=== PATIENT | female | born 1965 | race African-American/Black ===

== ENCOUNTER 2016-12-31 10:32 | Observation (INO) | payer OTHER ==
[~2016-12-31] VITALS: Ht 162.6 cm; Wt 78.1 kg
[2016-12-31] MEDS ORDERED: IV NORMAL SALINE 1000ML BAG 1,000 ML IV SCH (11:28)
[2016-12-31] MEDS ORDERED: ONDANSETRON PF 4 MG/2 ML VIAL. IV ONE (11:30)
--- NOTE | 2016-12-31 11:38 | PHYS DOC ---
Past Medical History Past Medical History: Diabetes-Type II, High Cholesterol Additional Past Medical Histor: Neuropathy Past Surgical History: Additional Past Surgical Histo: Uterine Ablation Alcohol Use: None Drug Use: None Adult General Chief Complaint Chief Complaint: ABDOMINAL PAIN HPI HPI Patient is a 51 year old female who presents with right lower quadrant pain. She states it started this morning at 9 AM his been sharp stabbing constant in nature. She states she was at work when this occurred. She states when she had a normal bowel movement without any difficulty. She has had a history of C-sections was never had a bowel obstruction or has had pain like this before. Nothing makes the pain better or worse. She denies any fevers chills, dysuria Review of Systems Review of Systems Constitutional: Denies fever or chills [] Eyes: Denies change in visual acuity, redness, or eye pain [] HENT: Denies nasal congestion or sore throat [] Respiratory: Denies cough or shortness of breath [] Cardiovascular: No additional information not addressed in HPI [] GI: Denies nausea, vomiting, bloody stools or diarrhea, Positive for for abdominal pain, : Denies dysuria or hematuria [] Musculoskeletal: Denies back pain or joint pain [] Integument: Denies rash or skin lesions [] Neurologic: Denies headache, focal weakness or sensory changes [] Endocrine: Denies polyuria or polydipsia [] Current Medications Current Medications Current Medications Medications (Trade) Dose Ordered Sig/Theron Start Time Stop Time Status Last Admin Dose Admin Acetaminophen (Tylenol) 650 mg PRN Q6HRS PRN 12/31/16 14:45 Bisacodyl (Dulcolax Supp) 10 mg PRN DAILY PRN 12/31/16 14:45 Ibuprofen (Motrin) 400 mg PRN Q6HRS PRN 12/31/16 14:45 Info (Do NOT chart on this entry -- for MONITORING) 1 each PRN DAILY PRN 12/31/16 11:45 01/02/17 11:44 Iohexol (Omnipaque 240 Mg/ml) 50 ml 1X ONCE 12/31/16 11:45 12/31/16 11:46 DC 12/31/16 11:45 50 ML Iohexol (Omnipaque 300 Mg/ml) 75 ml 1X ONCE 12/31/16 11:45 12/31/16 11:46 DC 12/31/16 11:45 75 ML Ketorolac Tromethamine (Toradol) 15 mg PRN Q6HRS PRN 12/31/16 14:45 01/05/17 14:44 Lactulose 20 gm PRN Q12HR PRN 12/31/16 14:45 Magnesium Hydroxide (Milk Of Magnesia) 2,400 mg PRN Q12HR PRN 12/31/16 14:45 Morphine Sulfate 2 mg PRN Q2HR PRN 12/31/16 14:45 Ondansetron HCl (Zofran) 4 mg PRN Q6HRS PRN 12/31/16 14:45 Oxycodone HCl (Roxicodone) 5 mg PRN Q4HRS PRN 12/31/16 14:45 Prochlorperazine (Compazine) 25 mg PRN Q12HR PRN 12/31/16 14:45 Prochlorperazine Edisylate (Compazine) 10 mg PRN Q6HRS PRN 12/31/16 14:45 Sodium Chloride 1,000 ml @ 1,000 mls/hr Q1H 12/31/16 11:28 12/31/16 12:27 DC 12/31/16 11:55 1,000 MLS/HR Allergies Allergies Allergies Coded Allergies Type Severity Reaction Last Updated Verified No Known Drug Allergies 10/25/15 No Physical Exam Physical Exam Constitutional: Well developed, well nourished, no acute distress, non-toxic appearance. [] HENT: Normocephalic, atraumatic, bilateral external ears normal, oropharynx moist, no oral exudates, nose normal. [] Eyes: PERRLA, EOMI, conjunctiva normal, no discharge. [] Neck: Normal range of motion, no tenderness, supple, no stridor. [] Cardiovascular:Heart rate regular rhythm, no murmur [] Lungs & Thorax: Bilateral breath sounds clear to auscultation [] Abdomen: Bowel sounds normal, soft, tender to palpation in the right lower quadrant without any rebound or guarding, no masses, no pulsatile masses. [] Skin: Warm, dry, no erythema, no rash. [] Back: No tenderness, no CVA tenderness. [] Extremities: No tenderness, no cyanosis, no clubbing, ROM intact, no edema. [] Neurologic: Alert and oriented X 3, normal motor function, normal sensory function, no focal deficits noted. [] Psychologic: Affect normal, judgement normal, mood normal. [] Current Patient Data Vital Signs Vital Signs Date Time Temp Pulse Resp B/P (MAP) Pulse Ox O2 Delivery O2 Flow Rate FiO2 12/31/16 14:51 75 145/73 (97) 12/31/16 12:30 98 Room Air 12/31/16 11:58 20 12/31/16 11:00 98.0 98.0 Lab Values Laboratory Tests Test 12/31/16 10:15 12/31/16 11:01 12/31/16 12:25 POC Urine HCG, Qualitative Hcg negative (Negative) Urine Collection Type Unknown Urine Color Yellow Urine Clarity Clear Urine pH 6.0 Urine Specific [place] 1.010 Urine Protein Negative mg/dL (NEG-TRACE) Urine Glucose (UA) Negative mg/dL (NEG) Urine Ketones (Stick) Negative mg/dL (NEG) Urine Blood Negative (NEG) Urine Nitrite Negative (NEG) Urine Bilirubin Negative (NEG) Urine Urobilinogen Dipstick 0.2 mg/dL (0.2 mg/dL) Urine Leukocyte Esterase Negative (NEG) Urine RBC 0 /HPF (0-2) Urine WBC 0 /HPF (0-4) Urine Squamous Epithelial Cells Few /LPF Urine Bacteria 0 /HPF (0-FEW) Urine Opiates Screen Neg (NEG) Urine Methadone Screen Neg (NEG) Urine Barbiturates Neg (NEG) Urine Phencyclidine Screen Neg (NEG) Urine Amphetamine/Methamphetamine Neg (NEG) Urine Benzodiazepines Screen Neg (NEG) Urine Cocaine Screen Neg (NEG) Urine Cannabinoids Screen Neg (NEG) Urine Ethyl Alcohol Neg (NEG) White Blood Count 13.0 x10^3/uL (4.0-11.0) H Red Blood Count 4.04 x10^6/uL (3.50-5.40) Hemoglobin 12.0 g/dL (12.0-15.5) Hematocrit 35.6 % (36.0-47.0) L Mean Corpuscular Volume 88 fL (79-100) Mean Corpuscular Hemoglobin 30 pg (25-35) Mean Corpuscular Hemoglobin Concent 34 g/dL (31-37) Red Cell Distribution Width 13.5 % (11.5-14.5) Platelet Count 260 x10^3/uL (140-400) Neutrophils (%) (Auto) 66 % (31-73) Lymphocytes (%) (Auto) 23 % (24-48) L Monocytes (%) (Auto) 4 % (0-9) Eosinophils (%) (Auto) 5 % (0-3) H Basophils (%) (Auto) 2 % (0-3) Neutrophils # (Auto) 8.6 x10^3uL (1.8-7.7) H Lymphocytes # (Auto) 3.0 x10^3/uL (1.0-4.8) Monocytes # (Auto) 0.6 x10^3/uL (0.0-1.1) Eosinophils # (Auto) 0.6 x10^3/uL (0.0-0.7) Basophils # (Auto) 0.2 x10^3/uL (0.0-0.2) Prothrombin Time 12.4 SEC (11.7-14.0) Prothrombin Time INR 1.0 (0.8-1.1) PTT 28 SEC (24-38) Sodium Level 145 mmol/L (136-145) Potassium Level 4.4 mmol/L (3.5-5.1) Chloride Level 108 mmol/L (98-107) H Carbon Dioxide Level 27 mmol/L (21-32) Anion Gap 10 (6-14) Blood Urea Nitrogen 12 mg/dL (7-20) Creatinine 0.6 mg/dL (0.6-1.0) Estimated GFR (Cockcroft-Gault) 128.0 Glucose Level 106 mg/dL (70-99) H Calcium Level 9.2 mg/dL (8.5-10.1) Total Bilirubin 0.2 mg/dL (0.2-1.0) Direct Bilirubin 0.1 mg/dL (0.0-0.2) Aspartate Amino Transferase (AST) 12 U/L (15-37) L Alanine Aminotransferase (ALT) 9 U/L (14-59) L Alkaline Phosphatase 104 U/L (46-116) Creatine Kinase 102 U/L (26-192) Creatine Kinase MB (Mass) 1.6 ng/mL (0.0-3.6) Creatine Kinase MB Relative Index 1.6 % (0-4) Troponin I Quantitative < 0.017 ng/mL (0.000-0.055) Total Protein 6.6 g/dL (6.4-8.2) Albumin 3.5 g/dL (3.4-5.0) Lipase 331 U/L (73-393) Laboratory Tests 12/31/16 12:25 Laboratory Tests 12/31/16 12:25 EKG EKG EKG shows normal sinus rhythm rate of [address] elevations or T- wave inversions, normal axis, QTC 456 ms, as interpreted by me. Radiology/Procedures Radiology/Procedures PATIENT: KAYLI BOLTON ACCOUNT: [id number] : 1965 LOCATION: ER AGE: 51 SEX: F EXAM STATUS: REG ER ORD. PHYSICIAN: JEANNE WILLIS MD REASON: abd pain PROCEDURE: CT ABD PELV W/ORAL&IV CONTRAST CT of the abdomen and pelvis with contrast, 12/31/2016: History: Abdominal pain and nausea Multidetector CT imaging was performed following oral and IV administration of contrast. The liver is unremarkable. No gallbladder abnormality is seen. The pancreas shows no abnormality. The spleen is of normal size. No renal or adrenal abnormality is detected. There is mild aortoiliac calcific plaquing. No abdominal or pelvic adenopathy is seen. The uterus is unremarkable. The bowel loops are not dilated. The appendix is visualized and shows no abnormality. No free fluid or free air is evident in the abdomen or pelvis. IMPRESSION: No acute abdominal or pelvic abnormality is detected. PQRS Compliance Statement: One or more of the following individualized dose reduction techniques were utilized for this examination: 1. Automated exposure control 2. Adjustment of the mA and/or kV according to patient size 3. Use of iterative reconstruction technique DICTATED and SIGNED BY: MARISA VILLA MD DATE: 12/31/16 1320 CC: ANDREA MARTINEZ MD; JEANNE WILLIS MD ~ Impressions: Abdominal pain Course & Med Decision Making Course & Med Decision Making Pertinent Labs and Imaging studies reviewed. (See chart for details) CT scans and labs are nonacute. Patient as a pelvic ultrasound pending at this time. Patient be admitted to the hospitalist and interim orders have been written. Patient's agreeable to the plan and is in stable condition at this time. Dragon Disclaimer Dragon Disclaimer This electronic medical record was generated, in whole or in part, using a voice recognition dictation system. Departure Departure Impression: Primary Impression: Abdominal pain Disposition: ADMITTED INPATIENT Admitting Physician: Angela Suarez Condition: STABLE Referrals: DEVON PEREZ DELIVERY TECHNICIAN (PCP) Problem Qualifiers Primary Impression: Abdominal pain Abdominal location: right lower quadrant Qualified Codes: R10.31 - Right lower quadrant pain JEANNE WILLIS MD December 31, 2016 11:38
[2016-12-31 11:41] LABS: BILIRUBIN,URINE NEGATIVE (NEG); GLUCOSE,URINE NEGATIVE (NEG); NITRITE,URINE NEGATIVE (NEG); PROTEIN,URINE NEGATIVE (NEG-TRACE); UROBILINOGEN,URINE 0.2 mg/dL (0.2 mg/dL)
[2016-12-31] MEDS ORDERED: IOHEXOL 240 MG/ML 50ML VIAL. PO ONE (11:45)
[2016-12-31] MEDS ORDERED: CONTRAST GIVEN MC PRN (11:45)
[2016-12-31] MEDS ORDERED: IOHEXOL 300 MG/ML 75 ML VIAL IV ONE (11:45)
[2016-12-31 11:48] LABS: BARBITURATES NEG (NEG); BENZODIAZEPINES NEG (NEG); CANNABINOIDS NEG (NEG); COCAINE NEG (NEG); METHADONE NEG (NEG); OPIATES NEG (NEG); PHENCYCLIDINE NEG (NEG)
[2016-12-31 11:55] LABS: BACTERIA,URINE 0 /HPF (0-FEW); RBC,URINE 0 /HPF (0-2); SQUAMOUS EPITHELIAL CELL,UR FEW /LPF; WBC,URINE 0 /HPF (0-4)
[2016-12-31] MEDS: MORPHINE SULFATE 4 MG/ML DISP.SYRIN. IV/SQ PRN ×2 (11:58→14:58)
[2016-12-31 12:36] LABS: BASO # 0.2 x10^3/uL (0.0-0.2); BASO % 2 % (0-3); EOS % 5 % (0-3); HEMATOCRIT 35.6 % (36.0-47.0); LYMPH % 23 % (24-48); MEAN CORPUSCULAR HEMOGLOBIN 30 pg (25-35); MEAN CORPUSCULAR HGB CONC 34 g/dL (31-37); MEAN CORPUSCULAR VOLUME 88 fL (79-100); MONO % 4 % (0-9); NEUT % 66 % (31-73); PLATELET COUNT 260 x10^3/uL (140-400); RED BLOOD COUNT 4.04 x10^6/uL (3.50-5.40); RED CELL DISTRIBUTION WIDTH 13.5 % (11.5-14.5)
[2016-12-31 12:46] LABS: CALCIUM 9.2 mg/dL (8.5-10.1); CREATININE 0.6 mg/dL (0.6-1.0); POTASSIUM 4.4 mmol/L (3.5-5.1)
[2016-12-31 12:49] LABS: PROTHROMBIN TIME PATIENT 12.4 SEC (11.7-14.0)
[2016-12-31 12:52] LABS: ALBUMIN 3.5 g/dL (3.4-5.0); DIRECT BILIRUBIN 0.1 mg/dL (0.0-0.2); TOTAL BILIRUBIN 0.2 mg/dL (0.2-1.0); TOTAL PROTEIN 6.6 g/dL (6.4-8.2)
[2016-12-31 13:00] LABS: CKMB MASS 1.6 ng/mL (0.0-3.6)
--- NOTE | 2016-12-31 13:27 | RAD ---
CT of the abdomen and pelvis with contrast, 12/31/2016: History: Abdominal pain and nausea Multidetector CT imaging was performed following oral and IV administration of contrast. The liver is unremarkable. No gallbladder abnormality is seen. The pancreas shows no abnormality. The spleen is of normal size. No renal or adrenal abnormality is detected. There is mild aortoiliac calcific plaquing. No abdominal or pelvic adenopathy is seen. The uterus is unremarkable. The bowel loops are not dilated. The appendix is visualized and shows no abnormality. No free fluid or free air is evident in the abdomen or pelvis. IMPRESSION: No acute abdominal or pelvic abnormality is detected. PQRS Compliance Statement: One or more of the following individualized dose reduction techniques were utilized for this examination: 1. Automated exposure control 2. Adjustment of the mA and/or kV according to patient size 3. Use of iterative reconstruction technique
--- NOTE | 2016-12-31 13:28 | EKG ---
[facility] [address] [place] [address] Test Date: 2016-12-31 Test Time: 11:51:31 Pat Name: KAYLI BOLTON Department: Room: Gender: F [employer]: : 1965 Requested By: JEANNE WILLIS Order Number: [id number] Reading MD: Usman Trinh Measurements Intervals [place] Rate: 83 P: 40 CT: 194 QRS: 39 QRSD: 80 T: 27 QT: 388 QTc: 456 Interpretive Statements SINUS RHYTHM Electronically Signed On 01-06-2017 13:30:42 CDT by Usman Trinh
--- NOTE | 2016-12-31 14:40 | RAD ---
Examination: Ultrasound pelvis History history of abdominal pain. Comparison: None available Findings: The uterus measures 7.1 x 3.0 cm The right ovary measures 2.5 x1.1 x 2.5 cm The left ovary is not identified. Examination limited due to patient body habitus Impression: Unremarkable visualized exam.
[2016-12-31] MEDS ORDERED: PROCHLORPERAZINE 10 MG/2 ML VIAL. IV PRN (14:45)
[2016-12-31] MEDS ORDERED: ONDANSETRON PF 4 MG/2 ML VIAL. IV PRN ×2 (14:45→15:45)
[2016-12-31] MEDS ORDERED: LACTULOSE 20 GM/30 ML SOLUTION. PO PRN (14:45)
[2016-12-31] MEDS ORDERED: PROCHLORPERAZINE 25 MG SUPP.RECT. PR PRN (14:45)
[2016-12-31] MEDS ORDERED: BISACODYL 10 MG SUPP.RECT. PR PRN (14:45)
[2016-12-31] MEDS ORDERED: MAGNESIUM HYDROXIDE 2,400 MG/30 ML ORAL.SUSP. PO PRN (14:45)
[2016-12-31] MEDS ORDERED: IBUPROFEN 400 MG TABLET. PO PRN (14:45)
--- NOTE | 2016-12-31 16:11 | PDOC1 ---
History and Physical Date of Admission Date of Admission DATE: 12/31/16 TIME: 16:07 Identification/Chief Complaint Chief Complaint abd pain Problems: Source Source: Caregiver, Chart review, Patient History of Present Illness History of Present Illness 51 y./o female coming in for abd pain with neg work up, in tears, MOrphine or dilaudid helped her pain in ER, No other prev admits here, LAbs ok,. Admitted for pain control. Rest of details of her abd pain hard to get, crying, not focused on my H and P. Past Medical History Cardiovascular: No pertinent hx Pulmonary: No pertinent hx GI: No pertinent hx Heme/Onc: No pertinent hx Hepatobiliary: No pertinent hx Psych: No pertinent hx Rheumatologic: No pertinent hx ENT: No pertinent hx Renal/: No pertinent hx Endocrine: No pertinent hx Dermatology: No pertinent hx Past Surgical History Past Surgical History: No pertinent history Family History Family History: No Significant Social History Smoke: No ALCOHOL: none Drugs: None Current Medications Current Medications Current Medications Morphine Sulfate 4 mg PRN Q15MIN PRN IV/SQ PAIN GREATER THAN 3/10 Last administered on 12/31/16 14:58; Start 12/31/16 at 11:30; Stop 01/01/17 at 11:29 Sodium Chloride 1,000 ml @ 1,000 mls/hr Q1H IV Last administered on 12/31/16 11:55; Start 12/31/16 at 11:28; Stop 12/31/16 at 12:27; Status DC Ondansetron HCl (Zofran) 4 mg 1X ONCE IV Last administered on 12/31/16 11:56 ; Start 12/31/16 at 11:30; Stop 12/31/16 at 11:31; Status DC Iohexol (Omnipaque 300 Mg/ml) 75 ml 1X ONCE IV Last administered on 12/31/16 11:45; Start 12/31/16 at 11:45; Stop 12/31/16 at 11:46; Status DC Iohexol (Omnipaque 240 Mg/ml) 50 ml 1X ONCE PO Last administered on 12/31/16 11:45; Start 12/31/16 at 11:45; Stop 12/31/16 at 11:46; Status DC Info (Do NOT chart on this entry -- for MONITORING) 1 each PRN DAILY PRN MC SEE COMMENTS; Start 12/31/16 at 11:45; Stop 01/02/17 at 11:44 Ondansetron HCl (Zofran) 4 mg PRN Q6HRS PRN IV NAUSEA/VOMITING; Start 12/31/16 at 14:45 Prochlorperazine Edisylate (Compazine) 10 mg PRN Q6HRS PRN IV NAUSEA/VOMITING; Start 12/31/16 at 14:45 Prochlorperazine (Compazine) 25 mg PRN Q12HR PRN [place] NAUSEA/VOMITING; Start at 14:45 Morphine Sulfate 2 mg PRN Q2HR PRN IV PAIN; Start 12/31/16 at 14:45 Oxycodone HCl (Roxicodone) 5 mg PRN Q4HRS PRN PO MILD PAIN, 1ST CHOICE; Start 12/31/16 at 14:45 Ketorolac Tromethamine (Toradol) 15 mg PRN Q6HRS PRN IV PAIN; Start 12/31/16 at 14:45; Stop 01/05/17 at 14:44 Acetaminophen (Tylenol) 650 mg PRN Q6HRS PRN PO Headaches, Temp > 101.5F; Start 12/31/16 at 14:45 Ibuprofen (Motrin) 400 mg PRN Q6HRS PRN PO MILD PAIN; Start 12/31/16 at 14:45 Docusate Sodium (Colace) 100 mg BID PO ; Start 12/31/16 at 21:00 Magnesium Hydroxide (Milk Of Magnesia) 2,400 mg PRN Q12HR PRN PO CONSTIPATION; Start 12/31/16 at 14:45 Lactulose 20 gm PRN Q12HR PRN PO CONSTIPATION; Start 12/31/16 at 14:45 Bisacodyl (Dulcolax Supp) 10 mg PRN DAILY PRN [place] CONSTIPATION; Start 12/31/16 at 14:45 Ondansetron HCl (Zofran) 4 mg PRN Q8HRS PRN IV NAUSEA/VOMITING; Start 12/31/16 at 15:45; Stop 12/31/16 at 15:48; Status DC Morphine Sulfate 4 mg PRN Q2HR PRN IV PAIN; Start 12/31/16 at 15:45; Stop 01/01 at 15:44 Allergies Allergies: Coded Allergies: No Known Drug Allergies (Unverified , 10/25/15) ROS Review of System cant obtain - crying Physical Exam General: No acute distress HEENT: Atraumatic, PERRLA Lungs: Clear to auscultation, Normal air movement Heart: S1S2, RRR, no thrills, no gallops, no murmurs Cardiovascular: S1, S2 Breasts: Normal Abdomen: Normal bowel sounds, Soft, No tenderness, No hepatosplenomegaly, Other (tende rto mild palp, no guarding) Rectal Exam: not examined PELVIC: Nml ext genitalia Extremities: No clubbing, No cyanosis, No edema, Normal pulses, No tenderness/ swelling Skin: No rashes, No breakdown, No significant lesion Neuro: Other (WNL, essentially looks normal;) Vitals Vitals Vital Signs Date Time Temp Pulse Resp B/P (MAP) Pulse Ox O2 Delivery O2 Flow Rate FiO2 12/31/16 15:23 94 17 137/93 (108) 97 Room Air 12/31/16 11:00 98.0 98.0 Labs Labs Laboratory Tests Test 12/31/16 10:15 12/31/16 11:01 12/31/16 12:25 Bedside Urine HCG, Qualitative Hcg negative (Negative) Urine Collection Type Unknown Urine Color Yellow Urine Clarity Clear Urine pH 6.0 Urine Specific [place] 1.010 Urine Protein Negative mg/dL (NEG-TRACE) Urine Glucose (UA) Negative mg/dL (NEG) Urine Ketones (Stick) Negative mg/dL (NEG) Urine Blood Negative (NEG) Urine Nitrite Negative (NEG) Urine Bilirubin Negative (NEG) Urine Urobilinogen Dipstick 0.2 mg/dL (0.2 mg/dL) Urine Leukocyte Esterase Negative (NEG) Urine RBC 0 /HPF (0-2) Urine WBC 0 /HPF (0-4) Urine Squamous Epithelial Cells Few /LPF Urine Bacteria 0 /HPF (0-FEW) Urine Opiates Screen Neg (NEG) Urine Methadone Screen Neg (NEG) Urine Barbiturates Neg (NEG) Urine Phencyclidine Screen Neg (NEG) Urine Amphetamine/Methamphetamine Neg (NEG) Urine Benzodiazepines Screen Neg (NEG) Urine Cocaine Screen Neg (NEG) Urine Cannabinoids Screen Neg (NEG) Urine Ethyl Alcohol Neg (NEG) White Blood Count 13.0 x10^3/uL (4.0-11.0) Red Blood Count 4.04 x10^6/uL (3.50-5.40) Hemoglobin 12.0 g/dL (12.0-15.5) Hematocrit 35.6 % (36.0-47.0) Mean Corpuscular Volume 88 fL (79-100) Mean Corpuscular Hemoglobin 30 pg (25-35) Mean Corpuscular Hemoglobin Concent 34 g/dL (31-37) Red Cell Distribution Width 13.5 % (11.5-14.5) Platelet Count 260 x10^3/uL (140-400) Neutrophils (%) (Auto) 66 % (31-73) Lymphocytes (%) (Auto) 23 % (24-48) Monocytes (%) (Auto) 4 % (0-9) Eosinophils (%) (Auto) 5 % (0-3) Basophils (%) (Auto) 2 % (0-3) Neutrophils # (Auto) 8.6 x10^3uL (1.8-7.7) Lymphocytes # (Auto) 3.0 x10^3/uL (1.0-4.8) Monocytes # (Auto) 0.6 x10^3/uL (0.0-1.1) Eosinophils # (Auto) 0.6 x10^3/uL (0.0-0.7) Basophils # (Auto) 0.2 x10^3/uL (0.0-0.2) Prothrombin Time 12.4 SEC (11.7-14.0) Prothromb Time International Ratio 1.0 (0.8-1.1) Activated Partial Thromboplast Time 28 SEC (24-38) Sodium Level 145 mmol/L (136-145) Potassium Level 4.4 mmol/L (3.5-5.1) Chloride Level 108 mmol/L (98-107) Carbon Dioxide Level 27 mmol/L (21-32) Anion Gap 10 (6-14) Blood Urea Nitrogen 12 mg/dL (7-20) Creatinine 0.6 mg/dL (0.6-1.0) Estimated GFR (Cockcroft-Gault) 128.0 Glucose Level 106 mg/dL (70-99) Calcium Level 9.2 mg/dL (8.5-10.1) Total Bilirubin 0.2 mg/dL (0.2-1.0) Direct Bilirubin 0.1 mg/dL (0.0-0.2) Aspartate Amino Transf (AST/SGOT) 12 U/L (15-37) Alanine Aminotransferase (ALT/SGPT) 9 U/L (14-59) Alkaline Phosphatase 104 U/L (46-116) Creatine Kinase 102 U/L (26-192) Creatine Kinase MB (Mass) 1.6 ng/mL (0.0-3.6) Creatine Kinase MB Relative Index 1.6 % (0-4) Troponin I Quantitative < 0.017 ng/mL (0.000-0.055) Total Protein 6.6 g/dL (6.4-8.2) Albumin 3.5 g/dL (3.4-5.0) Lipase 331 U/L (73-393) Laboratory Tests Test 12/31/16 10:15 12/31/16 11:01 12/31/16 12:25 Bedside Urine HCG, Qualitative Hcg negative (Negative) Urine Collection Type Unknown Urine Color Yellow Urine Clarity Clear Urine pH 6.0 Urine Specific [place] 1.010 Urine Protein Negative mg/dL (NEG-TRACE) Urine Glucose (UA) Negative mg/dL (NEG) Urine Ketones (Stick) Negative mg/dL (NEG) Urine Blood Negative (NEG) Urine Nitrite Negative (NEG) Urine Bilirubin Negative (NEG) Urine Urobilinogen Dipstick 0.2 mg/dL (0.2 mg/dL) Urine Leukocyte Esterase Negative (NEG) Urine RBC 0 /HPF (0-2) Urine WBC 0 /HPF (0-4) Urine Squamous Epithelial Cells Few /LPF Urine Bacteria 0 /HPF (0-FEW) Urine Opiates Screen Neg (NEG) Urine Methadone Screen Neg (NEG) Urine Barbiturates Neg (NEG) Urine Phencyclidine Screen Neg (NEG) Urine Amphetamine/Methamphetamine Neg (NEG) Urine Benzodiazepines Screen Neg (NEG) Urine Cocaine Screen Neg (NEG) Urine Cannabinoids Screen Neg (NEG) Urine Ethyl Alcohol Neg (NEG) White Blood Count 13.0 x10^3/uL (4.0-11.0) Red Blood Count 4.04 x10^6/uL (3.50-5.40) Hemoglobin 12.0 g/dL (12.0-15.5) Hematocrit 35.6 % (36.0-47.0) Mean Corpuscular Volume 88 fL (79-100) Mean Corpuscular Hemoglobin 30 pg (25-35) Mean Corpuscular Hemoglobin Concent 34 g/dL (31-37) Red Cell Distribution Width 13.5 % (11.5-14.5) Platelet Count 260 x10^3/uL (140-400) Neutrophils (%) (Auto) 66 % (31-73) Lymphocytes (%) (Auto) 23 % (24-48) Monocytes (%) (Auto) 4 % (0-9) Eosinophils (%) (Auto) 5 % (0-3) Basophils (%) (Auto) 2 % (0-3) Neutrophils # (Auto) 8.6 x10^3uL (1.8-7.7) Lymphocytes # (Auto) 3.0 x10^3/uL (1.0-4.8) Monocytes # (Auto) 0.6 x10^3/uL (0.0-1.1) Eosinophils # (Auto) 0.6 x10^3/uL (0.0-0.7) Basophils # (Auto) 0.2 x10^3/uL (0.0-0.2) Prothrombin Time 12.4 SEC (11.7-14.0) Prothromb Time International Ratio 1.0 (0.8-1.1) Activated Partial Thromboplast Time 28 SEC (24-38) Sodium Level 145 mmol/L (136-145) Potassium Level 4.4 mmol/L (3.5-5.1) Chloride Level 108 mmol/L (98-107) Carbon Dioxide Level 27 mmol/L (21-32) Anion Gap 10 (6-14) Blood Urea Nitrogen 12 mg/dL (7-20) Creatinine 0.6 mg/dL (0.6-1.0) Estimated GFR (Cockcroft-Gault) 128.0 Glucose Level 106 mg/dL (70-99) Calcium Level 9.2 mg/dL (8.5-10.1) Total Bilirubin 0.2 mg/dL (0.2-1.0) Direct Bilirubin 0.1 mg/dL (0.0-0.2) Aspartate Amino Transf (AST/SGOT) 12 U/L (15-37) Alanine Aminotransferase (ALT/SGPT) 9 U/L (14-59) Alkaline Phosphatase 104 U/L (46-116) Creatine Kinase 102 U/L (26-192) Creatine Kinase MB (Mass) 1.6 ng/mL (0.0-3.6) Creatine Kinase MB Relative Index 1.6 % (0-4) Troponin I Quantitative < 0.017 ng/mL (0.000-0.055) Total Protein 6.6 g/dL (6.4-8.2) Albumin 3.5 g/dL (3.4-5.0) Lipase 331 U/L (73-393) VTE Prophylaxis Ordered VTE Prophylaxis Devices: Yes VTE Pharmacological Prophylaxi: Yes Assessment/Plan Assessment/Plan 1.A bdominal pain, neg work up, unclear etiology, narc seeking? 2. Overweight 3. Leukocytosis, no source, reactive PLAn: OBS admit PAin med Recheck CBC pee Awaitv home meds Liquid diet MARQUES HAJI MD December 31, 2016 16:11
[2016-12-31 16:40] VITALS: BP 137/74
[2016-12-31] MEDS: MORPHINE SULFATE 4 MG/ML DISP.SYRIN. IV PRN ×2 (17:10→19:49)
[2016-12-31] MEDS ORDERED: ESOM40CA PO (18:04)
[2016-12-31] MEDS ORDERED: ATOR20TA58 PO (18:04)
[2016-12-31] MEDS ORDERED: PROAIR HFA8.5 GM INH (18:04)
[2016-12-31] MEDS ORDERED: METF-620 PO (18:04)
[2016-12-31] MEDS ORDERED: SITA100T PO (18:04)
[2016-12-31] MEDS ORDERED: GABA-586 PO (18:04)
[2016-12-31] MEDS ORDERED: GLIP2.5T4 PO (18:04)
[2016-12-31] MEDS ORDERED: CYAN100031 PO (18:04)
[2016-12-31 19:00] VITALS: BP 113/74
[2016-12-31] MEDS: DOCUSATE SODIUM 100 MG CAPSULE. PO SCH (19:48)
[2016-12-31 23:00] VITALS: BP 108/61
[2016-12-31] MEDS: oxyCODONE IR 5 MG TABLET PO PRN (23:26)
[2017-01-01] MEDS: MORPHINE SULFATE 4 MG/ML DISP.SYRIN. IV PRN ×6 (00:38→12:48)
[2017-01-01 03:00] VITALS: BP 102/69
[2017-01-01 06:13] LABS: BASO # 0.1 x10^3/uL (0.0-0.2); BASO % 1 % (0-3); EOS % 6 % (0-3); HEMATOCRIT 33.2 % (36.0-47.0); HEMOGLOBIN 11.1 g/dL (12.0-15.5); LYMPH % 32 % (24-48); MEAN CORPUSCULAR HEMOGLOBIN 30 pg (25-35); MEAN CORPUSCULAR HGB CONC 34 g/dL (31-37); MEAN CORPUSCULAR VOLUME 89 fL (79-100); MONO % 5 % (0-9); NEUT % 55 % (31-73); PLATELET COUNT 217 x10^3/uL (140-400); RED BLOOD COUNT 3.75 x10^6/uL (3.50-5.40); RED CELL DISTRIBUTION WIDTH 13.7 % (11.5-14.5); WHITE BLOOD COUNT 9.2 x10^3/uL (4.0-11.0)
[2017-01-01 06:25] LABS: CALCIUM 8.6 mg/dL (8.5-10.1); CREATININE 0.7 mg/dL (0.6-1.0); GFR 107.2; POTASSIUM 3.8 mmol/L (3.5-5.1)
[2017-01-01 07:00] VITALS: BP 121/70
[2017-01-01] MEDS: DOCUSATE SODIUM 100 MG CAPSULE. PO SCH ×2 (08:31→21:10)
[2017-01-01 11:00] VITALS: BP 101/66
--- NOTE | 2017-01-01 12:35 | PDOC ---
PROGRESS NOTES Chief Complaint Chief Complaint cc: abdominal pain A/P 1.Abdominal pain, neg work up, unclear etiology, 2. Overweight 3. Leukocytosis, no source, reactive PLAN: Pain not controlled liquid diet GI consult Protonix continue current care monitor hemoglobin Vitals Vitals Vital Signs Date Time Temp Pulse Resp B/P (MAP) Pulse Ox O2 Delivery O2 Flow Rate FiO2 01/01/17 11:00 98.1 73 19 101/66 (78) 95 Room Air 98.1 Physical Exam General: Alert, Oriented X3, No acute distress Heart: Normal S1, Normal S2 Abdomen: Normal bowel sounds, Soft, No tenderness, No hepatosplenomegaly, Other (tende rto mild palp, no guarding) Extremities: No clubbing, No cyanosis, No edema, Normal pulses, No tenderness/ swelling Skin: No rashes, No breakdown, No significant lesion Labs LABS Laboratory Tests Test 12/31/16 17:07 12/31/16 19:56 01/01/17 05:05 01/01/17 07:45 Glucose (Fingerstick) 103 mg/dL (70-99) 164 mg/dL (70-99) 121 mg/dL (70-99) White Blood Count 9.2 x10^3/uL (4.0-11.0) Red Blood Count 3.75 x10^6/uL (3.50-5.40) Hemoglobin 11.1 g/dL (12.0-15.5) Hematocrit 33.2 % (36.0-47.0) Mean Corpuscular Volume 89 fL (79-100) Mean Corpuscular Hemoglobin 30 pg (25-35) Mean Corpuscular Hemoglobin Concent 34 g/dL (31-37) Red Cell Distribution Width 13.7 % (11.5-14.5) Platelet Count 217 x10^3/uL (140-400) Neutrophils (%) (Auto) 55 % (31-73) Lymphocytes (%) (Auto) 32 % (24-48) Monocytes (%) (Auto) 5 % (0-9) Eosinophils (%) (Auto) 6 % (0-3) Basophils (%) (Auto) 1 % (0-3) Neutrophils # (Auto) 5.0 x10^3uL (1.8-7.7) Lymphocytes # (Auto) 3.0 x10^3/uL (1.0-4.8) Monocytes # (Auto) 0.5 x10^3/uL (0.0-1.1) Eosinophils # (Auto) 0.6 x10^3/uL (0.0-0.7) Basophils # (Auto) 0.1 x10^3/uL (0.0-0.2) Sodium Level 141 mmol/L (136-145) Potassium Level 3.8 mmol/L (3.5-5.1) Chloride Level 107 mmol/L (98-107) Carbon Dioxide Level 25 mmol/L (21-32) Anion Gap 9 (6-14) Blood Urea Nitrogen 10 mg/dL (7-20) Creatinine 0.7 mg/dL (0.6-1.0) Estimated GFR (Cockcroft-Gault) 107.2 Glucose Level 125 mg/dL (70-99) Calcium Level 8.6 mg/dL (8.5-10.1) Test 01/01/17 10:31 Glucose (Fingerstick) 152 mg/dL (70-99) Comment Review of Relevant I have reviewed the following items marlo (where applicable) has been applied. Labs Laboratory Tests Test 12/31/16 10:15 12/31/16 11:01 12/31/16 12:25 12/31/16 17:07 Bedside Urine HCG, Qualitative Hcg negative (Negative) Urine Collection Type Unknown Urine Color Yellow Urine Clarity Clear Urine pH 6.0 Urine Specific Addison 1.010 Urine Protein Negative mg/dL (NEG-TRACE) Urine Glucose (UA) Negative mg/dL (NEG) Urine Ketones (Stick) Negative mg/dL (NEG) Urine Blood Negative (NEG) Urine Nitrite Negative (NEG) Urine Bilirubin Negative (NEG) Urine Urobilinogen Dipstick 0.2 mg/dL (0.2 mg/dL) Urine Leukocyte Esterase Negative (NEG) Urine RBC 0 /HPF (0-2) Urine WBC 0 /HPF (0-4) Urine Squamous Epithelial Cells Few /LPF Urine Bacteria 0 /HPF (0-FEW) Urine Opiates Screen Neg (NEG) Urine Methadone Screen Neg (NEG) Urine Barbiturates Neg (NEG) Urine Phencyclidine Screen Neg (NEG) Urine Amphetamine/Methamphetamine Neg (NEG) Urine Benzodiazepines Screen Neg (NEG) Urine Cocaine Screen Neg (NEG) Urine Cannabinoids Screen Neg (NEG) Urine Ethyl Alcohol Neg (NEG) White Blood Count 13.0 x10^3/uL (4.0-11.0) Red Blood Count 4.04 x10^6/uL (3.50-5.40) Hemoglobin 12.0 g/dL (12.0-15.5) Hematocrit 35.6 % (36.0-47.0) Mean Corpuscular Volume 88 fL (79-100) Mean Corpuscular Hemoglobin 30 pg (25-35) Mean Corpuscular Hemoglobin Concent 34 g/dL (31-37) Red Cell Distribution Width 13.5 % (11.5-14.5) Platelet Count 260 x10^3/uL (140-400) Neutrophils (%) (Auto) 66 % (31-73) Lymphocytes (%) (Auto) 23 % (24-48) Monocytes (%) (Auto) 4 % (0-9) Eosinophils (%) (Auto) 5 % (0-3) Basophils (%) (Auto) 2 % (0-3) Neutrophils # (Auto) 8.6 x10^3uL (1.8-7.7) Lymphocytes # (Auto) 3.0 x10^3/uL (1.0-4.8) Monocytes # (Auto) 0.6 x10^3/uL (0.0-1.1) Eosinophils # (Auto) 0.6 x10^3/uL (0.0-0.7) Basophils # (Auto) 0.2 x10^3/uL (0.0-0.2) Prothrombin Time 12.4 SEC (11.7-14.0) Prothromb Time International Ratio 1.0 (0.8-1.1) Activated Partial Thromboplast Time 28 SEC (24-38) Sodium Level 145 mmol/L (136-145) Potassium Level 4.4 mmol/L (3.5-5.1) Chloride Level 108 mmol/L (98-107) Carbon Dioxide Level 27 mmol/L (21-32) Anion Gap 10 (6-14) Blood Urea Nitrogen 12 mg/dL (7-20) Creatinine 0.6 mg/dL (0.6-1.0) Estimated GFR (Cockcroft-Gault) 128.0 Glucose Level 106 mg/dL (70-99) Calcium Level 9.2 mg/dL (8.5-10.1) Total Bilirubin 0.2 mg/dL (0.2-1.0) Direct Bilirubin 0.1 mg/dL (0.0-0.2) Aspartate Amino Transf (AST/SGOT) 12 U/L (15-37) Alanine Aminotransferase (ALT/SGPT) 9 U/L (14-59) Alkaline Phosphatase 104 U/L (46-116) Creatine Kinase 102 U/L (26-192) Creatine Kinase MB (Mass) 1.6 ng/mL (0.0-3.6) Creatine Kinase MB Relative Index 1.6 % (0-4) Troponin I Quantitative < 0.017 ng/mL (0.000-0.055) Total Protein 6.6 g/dL (6.4-8.2) Albumin 3.5 g/dL (3.4-5.0) Lipase 331 U/L (73-393) Glucose (Fingerstick) 103 mg/dL (70-99) Test 12/31/16 19:56 01/01/17 05:05 01/01/17 07:45 01/01/17 10:31 Glucose (Fingerstick) 164 mg/dL (70-99) 121 mg/dL (70-99) 152 mg/dL (70-99) White Blood Count 9.2 x10^3/uL (4.0-11.0) Red Blood Count 3.75 x10^6/uL (3.50-5.40) Hemoglobin 11.1 g/dL (12.0-15.5) Hematocrit 33.2 % (36.0-47.0) Mean Corpuscular Volume 89 fL (79-100) Mean Corpuscular Hemoglobin 30 pg (25-35) Mean Corpuscular Hemoglobin Concent 34 g/dL (31-37) Red Cell Distribution Width 13.7 % (11.5-14.5) Platelet Count 217 x10^3/uL (140-400) Neutrophils (%) (Auto) 55 % (31-73) Lymphocytes (%) (Auto) 32 % (24-48) Monocytes (%) (Auto) 5 % (0-9) Eosinophils (%) (Auto) 6 % (0-3) Basophils (%) (Auto) 1 % (0-3) Neutrophils # (Auto) 5.0 x10^3uL (1.8-7.7) Lymphocytes # (Auto) 3.0 x10^3/uL (1.0-4.8) Monocytes # (Auto) 0.5 x10^3/uL (0.0-1.1) Eosinophils # (Auto) 0.6 x10^3/uL (0.0-0.7) Basophils # (Auto) 0.1 x10^3/uL (0.0-0.2) Sodium Level 141 mmol/L (136-145) Potassium Level 3.8 mmol/L (3.5-5.1) Chloride Level 107 mmol/L (98-107) Carbon Dioxide Level 25 mmol/L (21-32) Anion Gap 9 (6-14) Blood Urea Nitrogen 10 mg/dL (7-20) Creatinine 0.7 mg/dL (0.6-1.0) Estimated GFR (Cockcroft-Gault) 107.2 Glucose Level 125 mg/dL (70-99) Calcium Level 8.6 mg/dL (8.5-10.1) Laboratory Tests Test 12/31/16 17:07 12/31/16 19:56 01/01/17 05:05 01/01/17 07:45 Glucose (Fingerstick) 103 mg/dL (70-99) 164 mg/dL (70-99) 121 mg/dL (70-99) White Blood Count 9.2 x10^3/uL (4.0-11.0) Red Blood Count 3.75 x10^6/uL (3.50-5.40) Hemoglobin 11.1 g/dL (12.0-15.5) Hematocrit 33.2 % (36.0-47.0) Mean Corpuscular Volume 89 fL (79-100) Mean Corpuscular Hemoglobin 30 pg (25-35) Mean Corpuscular Hemoglobin Concent 34 g/dL (31-37) Red Cell Distribution Width 13.7 % (11.5-14.5) Platelet Count 217 x10^3/uL (140-400) Neutrophils (%) (Auto) 55 % (31-73) Lymphocytes (%) (Auto) 32 % (24-48) Monocytes (%) (Auto) 5 % (0-9) Eosinophils (%) (Auto) 6 % (0-3) Basophils (%) (Auto) 1 % (0-3) Neutrophils # (Auto) 5.0 x10^3uL (1.8-7.7) Lymphocytes # (Auto) 3.0 x10^3/uL (1.0-4.8) Monocytes # (Auto) 0.5 x10^3/uL (0.0-1.1) Eosinophils # (Auto) 0.6 x10^3/uL (0.0-0.7) Basophils # (Auto) 0.1 x10^3/uL (0.0-0.2) Sodium Level 141 mmol/L (136-145) Potassium Level 3.8 mmol/L (3.5-5.1) Chloride Level 107 mmol/L (98-107) Carbon Dioxide Level 25 mmol/L (21-32) Anion Gap 9 (6-14) Blood Urea Nitrogen 10 mg/dL (7-20) Creatinine 0.7 mg/dL (0.6-1.0) Estimated GFR (Cockcroft-Gault) 107.2 Glucose Level 125 mg/dL (70-99) Calcium Level 8.6 mg/dL (8.5-10.1) Test 01/01/17 10:31 Glucose (Fingerstick) 152 mg/dL (70-99) Medications Current Medications Morphine Sulfate 4 mg PRN Q15MIN PRN IV/SQ PAIN GREATER THAN 3/10 Last administered on 12/31/16 14:58; Start 12/31/16 at 11:30; Stop 01/01/17 at 11:29 ; Status DC Sodium Chloride 1,000 ml @ 1,000 mls/hr Q1H IV Last administered on 12/31/16 11:55; Start 12/31/16 at 11:28; Stop 12/31/16 at 12:27; Status DC Ondansetron HCl (Zofran) 4 mg 1X ONCE IV Last administered on 12/31/16 11:56 ; Start 12/31/16 at 11:30; Stop 12/31/16 at 11:31; Status DC Iohexol (Omnipaque 300 Mg/ml) 75 ml 1X ONCE IV Last administered on 12/31/16 11:45; Start 12/31/16 at 11:45; Stop 12/31/16 at 11:46; Status DC Iohexol (Omnipaque 240 Mg/ml) 50 ml 1X ONCE PO Last administered on 12/31/16 11:45; Start 12/31/16 at 11:45; Stop 12/31/16 at 11:46; Status DC Info (Do NOT chart on this entry -- for MONITORING) 1 each PRN DAILY PRN MC SEE COMMENTS; Start 12/31/16 at 11:45; Stop 01/02/17 at 11:44 Ondansetron HCl (Zofran) 4 mg PRN Q6HRS PRN IV NAUSEA/VOMITING; Start 12/31/16 at 14:45 Prochlorperazine Edisylate (Compazine) 10 mg PRN Q6HRS PRN IV NAUSEA/VOMITING; Start 12/31/16 at 14:45 Prochlorperazine (Compazine) 25 mg PRN Q12HR PRN [place] NAUSEA/VOMITING; Start at 14:45 Morphine Sulfate 2 mg PRN Q2HR PRN IV PAIN; Start 12/31/16 at 14:45 Oxycodone HCl (Roxicodone) 5 mg PRN Q4HRS PRN PO MILD PAIN, 1ST CHOICE Last administered on 12/31/16 23:26; Start 12/31/16 at 14:45 Ketorolac Tromethamine (Toradol) 15 mg PRN Q6HRS PRN IV PAIN; Start 12/31/16 at 14:45; Stop 01/05/17 at 14:44 Acetaminophen (Tylenol) 650 mg PRN Q6HRS PRN PO Headaches, Temp > 101.5F; Start 12/31/16 at 14:45 Ibuprofen (Motrin) 400 mg PRN Q6HRS PRN PO MILD PAIN; Start 12/31/16 at 14:45 Docusate Sodium (Colace) 100 mg BID PO Last administered on 01/01/17 08:31; Start 12/31/16 at 21:00 Magnesium Hydroxide (Milk Of Magnesia) 2,400 mg PRN Q12HR PRN PO CONSTIPATION; Start 12/31/16 at 14:45 Lactulose 20 gm PRN Q12HR PRN PO CONSTIPATION; Start 12/31/16 at 14:45 Bisacodyl (Dulcolax Supp) 10 mg PRN DAILY PRN [place] CONSTIPATION; Start 12/31/16 at 14:45 Ondansetron HCl (Zofran) 4 mg PRN Q8HRS PRN IV NAUSEA/VOMITING; Start 12/31/16 at 15:45; Stop 12/31/16 at 15:48; Status DC Morphine Sulfate 4 mg PRN Q2HR PRN IV PAIN Last administered on 01/01/17t 09:54 ; Start 12/31/16 at 15:45; Stop 01/01/17 at 15:44 Sodium Chloride 1,000 ml @ 75 mls/hr [id number] IV ; Start 01/01/17 at 12:30 Pantoprazole Sodium (Protonix Vial) 40 mg DAILYAC IVP ; Start 01/01/17 at 12:45 Active Scripts Active Reported Nexium Capsule (Esomeprazole Magnesium) 40 Mg Capsule.dr 1 Cap PO PRN PRN Proair Hfa Inhaler (Albuterol Sulfate) 8.5 Gm Hfa.aer.ad 2 Puff INH BID PRN B-12 (Cyanocobalamin (Vitamin B-12)) 1,000 Mcg Tablet.er 1,000 Mcg PO BID Januvia (Sitagliptin Phosphate) 100 Mg Tablet 1 Tab PO DAILY Metformin Hcl 1,000 Mg Tablet 1,000 Mg PO BIDWMEALS Glipizide Er (Glipizide) 2.5 Mg Tab.er.24 1 Tab PO DAILY Atorvastatin Calcium 20 Mg Tablet 20 Mg PO HS Gabapentin 300 Mg Capsule 300 Mg PO TID Vitals/I & O Vital Sign - Last 24 Hours 12/31/16 12/31/16 12/31/16 12/31/16 14:51 14:58 15:23 16:40 Temp 97.7 97.7 Pulse 75 94 72 Resp 23 17 20 B/P (MAP) 145/73 (97) 137/93 (108) 137/74 (95) Pulse Ox 99 97 97 O2 Delivery Room Air Room Air Room Air 12/31/16 12/31/16 12/31/16 12/31/16 17:10 19:00 19:49 20:00 Temp 99.6 99.6 Pulse 88 Resp 20 20 18 B/P (MAP) 113/74 (87) Pulse Ox 94 97 O2 Delivery Room Air Room Air Room Air 12/31/16 12/31/16 01/01/17 01/01/17 23:00 23:26 00:32 00:38 Temp 97.9 97.9 Pulse 81 Resp 18 18 18 18 B/P (MAP) 108/61 (77) Pulse Ox 97 97 97 97 O2 Delivery Room Air Room Air Room Air 01/01/17 01/01/17 01/01/17 01/01/17 02:41 03:00 05:05 05:35 Temp 97.9 97.9 Pulse 67 Resp 18 20 18 18 B/P (MAP) 102/69 (80) Pulse Ox 97 97 97 97 O2 Delivery Room Air Room Air Room Air 01/01/17 01/01/17 01/01/17 01/01/17 07:00 07:13 08:00 08:00 Temp 97.7 97.7 Pulse 65 Resp 20 18 B/P (MAP) 121/70 (87) Pulse Ox 99 97 O2 Delivery Room Air Room Air Room Air Room Air 01/01/17 01/01/17 09:54 11:00 Temp 98.1 98.1 Pulse 73 Resp 19 B/P (MAP) 101/66 (78) Pulse Ox 95 O2 Delivery Room Air Room Air Intake and Output 12/31/16 12/31/16 01/01/17 15:00 23:00 07:00 Intake Total 1000 ml 240 ml 900 ml Balance 1000 ml 240 ml 900 ml BEREKET BANUELOS MD January 01, 2017 12:35
[2017-01-01] MEDS: PANTOPRAZOLE IV PUSH 40 MG VIAL. IVP SCH (13:05)
[2017-01-01] MEDS: IV NORMAL SALINE 1000ML BAG 1,000 ML IV SCH (13:05)
[2017-01-01] MEDS: ACETAMINOPHEN 325 MG TABLET. PO PRN ×2 (13:17→21:18)
[2017-01-01 14:50] VITALS: BP 91/52
[2017-01-01] MEDS ORDERED: IV NORMAL SALINE 1000ML BAG 1,000 ML IV ONE (15:00)
[2017-01-01] MEDS: MORPHINE SULFATE 2 MG/ML DISP.SYRIN. IV PRN ×3 (15:34→21:11)
[2017-01-01 19:00] VITALS: BP 102/64
[2017-01-01] MEDS ORDERED: NON FORMULARY ITEM (Albuterol Sulfate (Proair Hfa Inhaler) 2 PUFF) INH PRN (20:45)
[2017-01-01] MEDS ORDERED: NON FORMULARY ITEM (Esomeprazole Magnesium (Nexium Capsule) 1 CAP) PO PRN (20:45)
[2017-01-01] MEDS: ATORVASTATIN CALCIUM 20 MG TABLET PO SCH (21:10)
[2017-01-01] MEDS: CYANOCOBALAMIN (VITAMIN B-12) 1,000 MCG TABLET. PO SCH (21:10)
[2017-01-01] MEDS: GABAPENTIN 300 MG CAPSULE. PO SCH (21:10)
[2017-01-01 23:00] VITALS: BP 104/60
--- NOTE | 2017-01-01 23:49 | ACF ---
Admit Criteria Forms Admit Criteria Forms Admit Criteria Forms ABDOMINAL PAIN Clinical Indications for Admission to Inpatient Care (Place 'X' for any and all applicable criteria): Admission is indicated for ANY ONE of the following(1)(2)(3)(4)(5): [X ]I. Inpatient admission required rather than observation care (Also use Abdominal Pain: Observation Care, as appropriate) because of ANY ONE of the following: [X ]a) Severe pain requiring acute inpatient management [ ]b) Identification of etiology/finding that requires inpatient care (eg, aortic dissection, free air) [ ]c) Absent bowel sounds with complete ileus(6) [ ]d) Suspected toxic megacolon [ ]e) Severe electrolyte abnormalities requiring inpatient care [ ]f) High fever or infection requiring inpatient admission as indicated by ANY ONE of following(7)(8): [ ] i) Appropriate outpatient or observational care antimicrobial treatment unavailable, not effective, or not feasible [ ] ii) Documented bacteremia [ ] iii) Temperature > 104.9 degrees F (oral) [ ] iv) T >103.1 F (oral) or < 96.8 F(rectal) that does not respond to all emergency treatment measures [ ]g) Signs of intestinal obstruction [B] [ ]h) Hemodynamic instability [ ]i) IV fluid to replace significant ongoing losses (greater than 3 L/m2 per day) (12)(13) [ ]j) Percutaneous or open drainage (eg, abscess, biliary tract ) procedures [ ]k) Parenteral nutrition regimen that must be implemented on inpatient basis [ ]l) Other condition,treatment or monitoring requiring inpatient admission. [ ]II. Peritoneal signs present [ ]III. Surgery needed that cannot be performed on an ambulatory basis. [ ]IV. Evaluation requires patient to not eat or drink for extended period ( eg, more than 24 hours). [ ]V. Contraindications and/or Inappropriate clinical situations for Observational Care in patients with abdominal pain, when ANY ONE of the following is required: [ ]a) Thorough evaluation is required to prevent catastrophic events due to delays in diagnosing (e.g.Mesenteric ischemia) 1,3 [ ]b) Patient with severe pathology or with chronic symptoms unlikely to improve in the ED stay (3) [ ]. General contraindications and/or Inappropriate clinical situations for Observational Care in patients with abdominal pain, when ANY ONE of the following is required: [ ]a) Prediction of prolongation of LOS based on ANY ONE of the following may be considered as a contraindication for observational care 2, 3, 4, 5, 6, 7, 8, 9, 10, 11 [ ]i) Age > 65 yrs. [ ]ii) Patient arriving by ambulance [ ]iii) Patient with high acuity [ ]iv) Patient requiring vital sign monitoring [ ]v) Patient on IV medication [ ]b) Systolic blood pressures 180mmHg 3,12 [ ]c) Patient with altered mental status including delirium and other alteration of consciousness, (3) [ ]d) Patient whose discharge disposition will be to a care home home or rehabilitation home should not be managed in Emergency Department Observation Unit. CMS rule requires 3 days hospital stay before such placement.3,13 [ ]e) Patient with failure to thrive due to broad array of etiologies 3,16,17 [ ]f) Inability to ambulate 3,14 Extended stay beyond goal length of stay may be needed for(2)(3): [ ]a) Persistent abdominal pain with suspected intra-abdominal process [ ]b) Diagnosed condition requiring continued stay (e.g., pancreatitis, complicated diverticulitis) [ ]c) Surgery (e.g., colectomy) The original [employer] content created by [employer] has been revised. The portions of the content which have been revised are identified through the use of italic text or in bold, and [facility] has neither reviewed nor approved the modified material.All other unmodified content is copyright [employer]. Please see references footnoted in the original [facility] edition 2016 GIBRAN BHARDWAJ January 01, 2017 23:49
[2017-01-02] MEDS: MORPHINE SULFATE 2 MG/ML DISP.SYRIN. IV PRN ×6 (00:28→19:19)
[2017-01-02 03:00] VITALS: BP 104/61
[2017-01-02] MEDS: IV NORMAL SALINE 1000ML BAG 1,000 ML IV SCH ×2 (03:26→16:10)
[2017-01-02 07:00] VITALS: BP 124/53
[2017-01-02] MEDS: CYANOCOBALAMIN (VITAMIN B-12) 1,000 MCG TABLET. PO SCH ×2 (07:44→21:12)
[2017-01-02] MEDS: ACETAMINOPHEN 325 MG TABLET. PO PRN (07:44)
[2017-01-02] MEDS: PANTOPRAZOLE IV PUSH 40 MG VIAL. IVP SCH (07:45)
[2017-01-02] MEDS: LINAGLIPTIN 5 MG TABLET PO SCH (07:45)
[2017-01-02] MEDS: DOCUSATE SODIUM 100 MG CAPSULE. PO SCH ×2 (07:45→21:12)
[2017-01-02] MEDS: GABAPENTIN 300 MG CAPSULE. PO SCH ×3 (07:45→21:13)
[2017-01-02] MEDS: ALBUTEROL SULFATE 2.5 MG/3 ML NEBU. NEB PRN ×2 (08:26→17:13)
--- NOTE | 2017-01-02 09:21 | PDOC ---
PROGRESS NOTES Chief Complaint Chief Complaint cc: abdominal pain A/P 1. RUQAbdominal pain, neg work up, unclear etiology, 2. Overweight 3. Leukocytosis, no source, reactive - resolved 4. MIgraine headaches History of Present Illness History of Present Illness RUQ abd pain now - was all aroujnd 2 days ago when I saw her at ER NO emesis but nauseus Headache 05/24- looks uncomfortable H migraines, takes excedrin at home Asking for morphine q2 IV per staff PLAn: GI was consulted Check RUQ sono MIght need to involve GS pending US results IMitrex for migraine Dw pt and RN Vitals Vitals Vital Signs Date Time Temp Pulse Resp B/P (MAP) Pulse Ox O2 Delivery O2 Flow Rate FiO2 01/02/17 08:30 99 Room Air 01/02/17 07:00 97.7 71 18 124/53 (76) 97.7 Physical Exam General: Alert, Oriented X3, No acute distress Heart: Normal S1, Normal S2 Abdomen: Normal bowel sounds, Soft, No tenderness, No hepatosplenomegaly, Other (tende rto mild palp, no guarding) Extremities: No clubbing, No cyanosis, No edema, Normal pulses, No tenderness/ swelling Skin: No rashes, No breakdown, No significant lesion Labs LABS Laboratory Tests Test 01/01/17 10:31 01/01/17 20:55 Glucose (Fingerstick) 152 mg/dL (70-99) 157 mg/dL (70-99) Review of Systems Review of Systems abd pain, nausea, headache, no emesis, cp.soa Comment Review of Relevant I have reviewed the following items marlo (where applicable) has been applied. Labs Laboratory Tests Test 12/31/16 10:15 12/31/16 11:01 12/31/16 12:25 12/31/16 17:07 Bedside Urine HCG, Qualitative Hcg negative (Negative) Urine Collection Type Unknown Urine Color Yellow Urine Clarity Clear Urine pH 6.0 Urine Specific [place] 1.010 Urine Protein Negative mg/dL (NEG-TRACE) Urine Glucose (UA) Negative mg/dL (NEG) Urine Ketones (Stick) Negative mg/dL (NEG) Urine Blood Negative (NEG) Urine Nitrite Negative (NEG) Urine Bilirubin Negative (NEG) Urine Urobilinogen Dipstick 0.2 mg/dL (0.2 mg/dL) Urine Leukocyte Esterase Negative (NEG) Urine RBC 0 /HPF (0-2) Urine WBC 0 /HPF (0-4) Urine Squamous Epithelial Cells Few /LPF Urine Bacteria 0 /HPF (0-FEW) Urine Opiates Screen Neg (NEG) Urine Methadone Screen Neg (NEG) Urine Barbiturates Neg (NEG) Urine Phencyclidine Screen Neg (NEG) Urine Amphetamine/Methamphetamine Neg (NEG) Urine Benzodiazepines Screen Neg (NEG) Urine Cocaine Screen Neg (NEG) Urine Cannabinoids Screen Neg (NEG) Urine Ethyl Alcohol Neg (NEG) White Blood Count 13.0 x10^3/uL (4.0-11.0) Red Blood Count 4.04 x10^6/uL (3.50-5.40) Hemoglobin 12.0 g/dL (12.0-15.5) Hematocrit 35.6 % (36.0-47.0) Mean Corpuscular Volume 88 fL (79-100) Mean Corpuscular Hemoglobin 30 pg (25-35) Mean Corpuscular Hemoglobin Concent 34 g/dL (31-37) Red Cell Distribution Width 13.5 % (11.5-14.5) Platelet Count 260 x10^3/uL (140-400) Neutrophils (%) (Auto) 66 % (31-73) Lymphocytes (%) (Auto) 23 % (24-48) Monocytes (%) (Auto) 4 % (0-9) Eosinophils (%) (Auto) 5 % (0-3) Basophils (%) (Auto) 2 % (0-3) Neutrophils # (Auto) 8.6 x10^3uL (1.8-7.7) Lymphocytes # (Auto) 3.0 x10^3/uL (1.0-4.8) Monocytes # (Auto) 0.6 x10^3/uL (0.0-1.1) Eosinophils # (Auto) 0.6 x10^3/uL (0.0-0.7) Basophils # (Auto) 0.2 x10^3/uL (0.0-0.2) Prothrombin Time 12.4 SEC (11.7-14.0) Prothromb Time International Ratio 1.0 (0.8-1.1) Activated Partial Thromboplast Time 28 SEC (24-38) Sodium Level 145 mmol/L (136-145) Potassium Level 4.4 mmol/L (3.5-5.1) Chloride Level 108 mmol/L (98-107) Carbon Dioxide Level 27 mmol/L (21-32) Anion Gap 10 (6-14) Blood Urea Nitrogen 12 mg/dL (7-20) Creatinine 0.6 mg/dL (0.6-1.0) Estimated GFR (Cockcroft-Gault) 128.0 Glucose Level 106 mg/dL (70-99) Calcium Level 9.2 mg/dL (8.5-10.1) Total Bilirubin 0.2 mg/dL (0.2-1.0) Direct Bilirubin 0.1 mg/dL (0.0-0.2) Aspartate Amino Transf (AST/SGOT) 12 U/L (15-37) Alanine Aminotransferase (ALT/SGPT) 9 U/L (14-59) Alkaline Phosphatase 104 U/L (46-116) Creatine Kinase 102 U/L (26-192) Creatine Kinase MB (Mass) 1.6 ng/mL (0.0-3.6) Creatine Kinase MB Relative Index 1.6 % (0-4) Troponin I Quantitative < 0.017 ng/mL (0.000-0.055) Total Protein 6.6 g/dL (6.4-8.2) Albumin 3.5 g/dL (3.4-5.0) Lipase 331 U/L (73-393) Glucose (Fingerstick) 103 mg/dL (70-99) Test 12/31/16 19:56 01/01/17 05:05 01/01/17 07:45 01/01/17 10:31 Glucose (Fingerstick) 164 mg/dL (70-99) 121 mg/dL (70-99) 152 mg/dL (70-99) White Blood Count 9.2 x10^3/uL (4.0-11.0) Red Blood Count 3.75 x10^6/uL (3.50-5.40) Hemoglobin 11.1 g/dL (12.0-15.5) Hematocrit 33.2 % (36.0-47.0) Mean Corpuscular Volume 89 fL (79-100) Mean Corpuscular Hemoglobin 30 pg (25-35) Mean Corpuscular Hemoglobin Concent 34 g/dL (31-37) Red Cell Distribution Width 13.7 % (11.5-14.5) Platelet Count 217 x10^3/uL (140-400) Neutrophils (%) (Auto) 55 % (31-73) Lymphocytes (%) (Auto) 32 % (24-48) Monocytes (%) (Auto) 5 % (0-9) Eosinophils (%) (Auto) 6 % (0-3) Basophils (%) (Auto) 1 % (0-3) Neutrophils # (Auto) 5.0 x10^3uL (1.8-7.7) Lymphocytes # (Auto) 3.0 x10^3/uL (1.0-4.8) Monocytes # (Auto) 0.5 x10^3/uL (0.0-1.1) Eosinophils # (Auto) 0.6 x10^3/uL (0.0-0.7) Basophils # (Auto) 0.1 x10^3/uL (0.0-0.2) Sodium Level 141 mmol/L (136-145) Potassium Level 3.8 mmol/L (3.5-5.1) Chloride Level 107 mmol/L (98-107) Carbon Dioxide Level 25 mmol/L (21-32) Anion Gap 9 (6-14) Blood Urea Nitrogen 10 mg/dL (7-20) Creatinine 0.7 mg/dL (0.6-1.0) Estimated GFR (Cockcroft-Gault) 107.2 Glucose Level 125 mg/dL (70-99) Calcium Level 8.6 mg/dL (8.5-10.1) Test 01/01/17 20:55 Glucose (Fingerstick) 157 mg/dL (70-99) Laboratory Tests Test 01/01/17 10:31 01/01/17 20:55 Glucose (Fingerstick) 152 mg/dL (70-99) 157 mg/dL (70-99) Medications Current Medications Morphine Sulfate 4 mg PRN Q15MIN PRN IV/SQ PAIN GREATER THAN 3/10 Last administered on 12/31/16 14:58; Start 12/31/16 at 11:30; Stop 01/01/17 at 11:29 ; Status DC Sodium Chloride 1,000 ml @ 1,000 mls/hr Q1H IV Last administered on 12/31/16 11:55; Start 12/31/16 at 11:28; Stop 12/31/16 at 12:27; Status DC Ondansetron HCl (Zofran) 4 mg 1X ONCE IV Last administered on 12/31/16 11:56 ; Start 12/31/16 at 11:30; Stop 12/31/16 at 11:31; Status DC Iohexol (Omnipaque 300 Mg/ml) 75 ml 1X ONCE IV Last administered on 12/31/16 11:45; Start 12/31/16 at 11:45; Stop 12/31/16 at 11:46; Status DC Iohexol (Omnipaque 240 Mg/ml) 50 ml 1X ONCE PO Last administered on 12/31/16 11:45; Start 12/31/16 at 11:45; Stop 12/31/16 at 11:46; Status DC Info (Do NOT chart on this entry -- for MONITORING) 1 each PRN DAILY PRN MC SEE COMMENTS; Start 12/31/16 at 11:45; Stop 01/02/17 at 11:44 Ondansetron HCl (Zofran) 4 mg PRN Q6HRS PRN IV NAUSEA/VOMITING; Start 12/31/16 at 14:45 Prochlorperazine Edisylate (Compazine) 10 mg PRN Q6HRS PRN IV NAUSEA/VOMITING; Start 12/31/16 at 14:45 Prochlorperazine (Compazine) 25 mg PRN Q12HR PRN DE NAUSEA/VOMITING; Start at 14:45 Morphine Sulfate 2 mg PRN Q2HR PRN IV PAIN Last administered on 01/02/17 07:46 ; Start 12/31/16 at 14:45 Oxycodone HCl (Roxicodone) 5 mg PRN Q4HRS PRN PO MILD PAIN, 1ST CHOICE Last administered on 12/31/16 23:26; Start 12/31/16 at 14:45 Ketorolac Tromethamine (Toradol) 15 mg PRN Q6HRS PRN IV PAIN; Start 12/31/16 at 14:45; Stop 01/05/17 at 14:44 Acetaminophen (Tylenol) 650 mg PRN Q6HRS PRN PO Headaches, Temp > 101.5F Last administered on 01/02/17 07:44; Start 12/31/16 at 14:45 Ibuprofen (Motrin) 400 mg PRN Q6HRS PRN PO MILD PAIN; Start 12/31/16 at 14:45 Docusate Sodium (Colace) 100 mg BID PO Last administered on 01/02/17 07:45; Start 12/31/16 at 21:00 Magnesium Hydroxide (Milk Of Magnesia) 2,400 mg PRN Q12HR PRN PO CONSTIPATION; Start 12/31/16 at 14:45 Lactulose 20 gm PRN Q12HR PRN PO CONSTIPATION; Start 12/31/16 at 14:45 Bisacodyl (Dulcolax Supp) 10 mg PRN DAILY PRN DE CONSTIPATION; Start 12/31/16 at 14:45 Ondansetron HCl (Zofran) 4 mg PRN Q8HRS PRN IV NAUSEA/VOMITING; Start 12/31/16 at 15:45; Stop 12/31/16 at 15:48; Status DC Morphine Sulfate 4 mg PRN Q2HR PRN IV PAIN Last administered on 01/01/17 12:48 ; Start 12/31/16 at 15:45; Stop 01/01/17 at 15:44; Status DC Sodium Chloride 1,000 ml @ 75 mls/hr [id number] IV Last administered on 03:26; Start 01/01/17 at 12:30 Pantoprazole Sodium (Protonix Vial) 40 mg DAILYAC IVP Last administered on 01/02 07:45; Start 01/01/17 at 12:45 Sodium Chloride 1,000 ml @ 1,000 mls/hr 1X ONCE IV Last administered on 15:42; Start 01/01/17 at 15:00; Stop 01/01/17 at 15:59; Status DC Atorvastatin Calcium (Lipitor) 20 mg HS PO Last administered on 01/01/17 21:10 ; Start 01/01/17 at 21:00 Glipizide (Glucotrol Er) 2.5 mg DAILY PO ; Start 01/02/17 at 09:00 Metformin HCl (Glucophage) 1,000 mg BIDWMEALS PO ; Start 01/02/17 at 17:00 Non-Formulary Medication 2 puff BID PRN INH SHORTNESS OF BREATH; Start at 20:45; Status UNV Cyanocobalamin (Vitamin B-12) 1,000 mcg BID PO Last administered on 01/02/17 07:44; Start 01/01/17 at 21:00 Non-Formulary Medication 1 cap PRN PRN PO DYSPEPSIA; Start 01/01/17 at 20:45; Status UNV Gabapentin (Neurontin) 300 mg TID PO Last administered on 01/02/17 07:45; Start 01/01/17 at 21:00 Linagliptin (Tradjenta) 5 mg DAILY PO Last administered on 01/02/17 07:45; Start 01/02/17 at 09:00 Albuterol Sulfate (Ventolin Neb Soln) 2.5 mg PRN BID PRN NEB SHORTNESS OF BREATH Last administered on 01/02/17 08:26; Start 01/01/17 at 20:45 Active Scripts Active Reported Nexium Capsule (Esomeprazole Magnesium) 40 Mg Capsule.dr 1 Cap PO PRN PRN Proair Hfa Inhaler (Albuterol Sulfate) 8.5 Gm Hfa.aer.ad 2 Puff INH BID PRN B-12 (Cyanocobalamin (Vitamin B-12)) 1,000 Mcg Tablet.er 1,000 Mcg PO BID Januvia (Sitagliptin Phosphate) 100 Mg Tablet 1 Tab PO DAILY Metformin Hcl 1,000 Mg Tablet 1,000 Mg PO BIDWMEALS Glipizide Er (Glipizide) 2.5 Mg Tab.er.24 1 Tab PO DAILY Atorvastatin Calcium 20 Mg Tablet 20 Mg PO HS Gabapentin 300 Mg Capsule 300 Mg PO TID Vitals/I & O Vital Sign - Last 24 Hours 01/01/17 01/01/17 01/01/17 01/01/17 09:54 11:00 12:48 13:30 Temp 98.1 98.1 Pulse 73 Resp 19 B/P (MAP) 101/66 (78) Pulse Ox 95 95 O2 Delivery Room Air Room Air Room Air Room Air 01/01/17 01/01/17 01/01/17 01/01/17 14:50 15:34 18:03 19:00 Temp 97.9 98.3 97.9 98.3 Pulse 65 73 Resp 20 20 B/P (MAP) 91/52 (65) 102/64 (77) Pulse Ox 99 91 O2 Delivery Room Air Room Air Room Air Room Air 01/01/17 01/01/17 01/01/17 01/02/17 20:00 21:11 23:00 00:28 Temp 97.7 97.7 Pulse 68 Resp 20 B/P (MAP) 104/60 (75) Pulse Ox 98 O2 Delivery Room Air Room Air Room Air Room Air 01/02/17 01/02/17 01/02/17 01/02/17 03:00 03:26 07:00 07:46 Temp 97.9 97.7 97.9 97.7 Pulse 67 71 Resp 18 18 B/P (MAP) 104/61 (75) 124/53 (76) Pulse Ox 99 98 97 O2 Delivery Room Air Room Air Room Air Room Air 01/02/17 01/02/17 08:16 08:30 Pulse Ox 99 O2 Delivery Room Air Room Air Intake and Output 01/01/17 01/01/17 01/02/17 15:00 23:00 07:00 Intake Total 500 ml 1730 ml 600 ml Balance 500 ml 1730 ml 600 ml MARQUES MARQUEZ MD January 02, 2017 09:21
[2017-01-02] MEDS: SUMAtriptan SUCCINATE 25 MG TABLET PO ONE ×2 (10:38→10:40)
[2017-01-02] MEDS: glipiZIDE ER 2.5 MG TAB.ER.24 PO SCH (10:39)
--- NOTE | 2017-01-02 10:47 | RAD ---
Indication: Right upper quadrant pain for 3 days. Technique: Right upper quadrant ultrasound was performed. Comparison is a CT from 2 days ago. Findings: The visualized pancreas is unremarkable. IVC is patent. Liver is normal in size and echotexture. Gallbladder is distended. However, there is no stone or wall thickening and there is no pericholecystic fluid. There is a positive sonographic Ricardo sign. Common bile duct is dilated at 7 mm. Right kidney is without hydronephrosis or mass. Impression: 1. Gallbladder distention and positive sonographic Ricardo sign. However, there is no gallbladder wall thickening or pericholecystic fluid and no stone or sludge is identified. Consider hepatobiliary scintigraphy if further workup is required. 2. Mildly dilated common bile duct, consider MRCP or ERCP if further workup is required.
--- NOTE | 2017-01-02 11:18 | PDOC ---
Provider Note Provider Note #[id number]--uggqitd dictated RUQ pain, hx of PUD (per her report). gb distention on u/s without stones. pippida and GI consult pending. i will follow along. thank you! JOHNNIE COSME MD January 02, 2017 11:18
[2017-01-02 11:42] VITALS: BP 101/40
[2017-01-02 15:00] VITALS: BP 136/79
[2017-01-02] MEDS: SUMAtriptan SUCCINATE 25 MG TABLET PO PRN ×2 (17:22→21:12)
[2017-01-02 19:00] VITALS: BP 130/70
[2017-01-02] MEDS: ATORVASTATIN CALCIUM 20 MG TABLET PO SCH (21:12)
--- NOTE | 2017-01-02 22:17 | CONS ---
DATE OF CONSULTATION: 01/02/2017 CHIEF COMPLAINT: Abdominal pain. HISTORY OF PRESENT ILLNESS: The patient is a 51-year-old female who I saw on her hospital room today. She says that on Tuesday morning, she developed a sharp right upper quadrant pain. She says the pain feels different than her previous history of bleeding ulcers. She says the pain was sharp and severe and would come in waves. It would resolve and then return again. It did not radiate to her back or shoulder, has been aching, but she is unsure if that is related to her abdominal pain. The pain is mildly improved since Tuesday, but is still quite severe. It is associated with nausea, but no vomiting. PAST SURGICAL HISTORY: Three C-sections. PAST MEDICAL HISTORY: 1. Diabetes mellitus. 2. Hypercholesterolemia. 3. Anxiety. SOCIAL HISTORY: She smokes about half pack a day. She is employed. She denies heavy alcohol use. MEDICATIONS AT HOME: Include; 1. Albuterol. 2. Atorvastatin. 3. Vitamin B12. 4. Nexium. 5. Gabapentin. 6. Glipizide. 7. Metformin. 8. Januvia. ALLERGIES: No known drug allergies. FAMILY HISTORY: Noncontributory to this illness. REVIEW OF SYSTEMS: CONSTITUTIONAL: Denies fevers or chills. EYES: Denies abrupt loss of vision or double vision. She does have glasses present on the bedside table. HENT: Denies loss of hearing or ringing in her ears. CARDIOVASCULAR: Denies chest pain or heart palpitations. RESPIRATORY: Denies cough, shortness of breath. GASTROINTESTINAL: See HPI. GENITOURINARY: No dysuria or hematuria. MUSCULOSKELETAL: No new myalgias or arthralgias. DERMATOLOGIC: No new skin rashes or lesions. PSYCHIATRIC: Has had a history of depression and anxiety in the past. She says that her anxiety has been fairly well controlled recently. NEUROLOGIC: She has migraines, but no seizures. HEMATOLOGIC: No easy bleeding or bruising. GENITOURINARY: No dysuria or hematuria. DERMATOLOGIC: No new skin rashes or lesions. PHYSICAL EXAMINATION: VITAL SIGNS: She is afebrile with a pulse of 71, respiratory rate 18, blood pressure 124/53 and O2 sats 99% on room air. GENERAL: A well-developed, well-nourished female. She is somewhat overweight with a BMI of 29.6. PSYCHIATRIC: She is cooperative. She appears anxious. NEUROLOGIC: She has no resting tremor. She can move all 4 extremities without difficulty. She is alert and oriented x 3. EYES: Pupils are round and reactive. Sclerae are nonicteric. External eyes are normal in appearance. HENT: Head is atraumatic. Mucous membranes moist. Face symmetric. NECK: Supple, without cervical lymphadenopathy, no supraclavicular lymphadenopathy. Neck is without masses or tenderness. CARDIOVASCULAR: By palpation of her right radial pulse, she has a 2+ right radial pulse. Regular rate and rhythm by palpation. No pedal edema. RESPIRATORY: The chest welch are nontender to palpation. Respirations are nonlabored. She is on room air. ABDOMEN: Soft, nondistended. She is mildly tender in the right upper quadrant epigastric region. No rebound, no guarding. DERMATOLOGIC: Exposed portions of her skin are unremarkable. LABORATORY DATA: Labs were reviewed. There is no CBC from this morning. She had liver function test on 12/31/2016, which showed a normal bilirubin and her AST, ALT and alkaline phosphatase were not elevated. Her lipase was normal. IMAGING: She has had a CT scan of the abdomen and pelvis, which was unremarkable. She had a pelvic ultrasound, which was unremarkable and she has had an ultrasound of her right upper quadrant today shows gallbladder distention and positive sonographic Ricardo sign, but no gallbladder wall thickening, no pericholecystic fluid, no cholelithiasis, no gallbladder sludge. Mildly dilated common bile duct at 7 mm. ASSESSMENT: 1. Right upper quadrant pain, etiology unclear, possibilities include chronic cholecystitis or biliary dyskinesia as well as peptic ulcer disease. She does have history of she says of peptic ulcer disease and bleeding ulcers in the past. 2. Diabetes mellitus. 3. Hyperlipidemia. 4. Overweight with a BMI of 29.6. PLAN: I have ordered a PIPIDA scan with gallbladder ejection fraction also Dr. Edna Lorenzana has been consulted, which I think will be very valuable given the patient's history of ulcer disease. For now, I would leave her n.p.o., given that she continues to have abdominal pain. I will continue to follow along. Thank you for the consult. JOHNNIE COSME MD DR: CAITLIN/rebecca JOB#: [id number] / [id number] ANDREA Wills MD, ALKA MD TERMULO, CHERRIE MD MTDD
--- NOTE | 2017-01-02 22:33 | CONS ---
DATE OF CONSULTATION: 01/02/2017 Dr. Hi Mejia dictating a GI consultation for Dr. Neeraj Rasheed, I am for him today. REQUESTING PHYSICIAN: Angela Suarez M.D. PRIMARY CARE PHYSICIAN: Dr. Isra Hays. REASON FOR CONSULTATION: Right upper quadrant abdominal pain. HISTORY OF PRESENT ILLNESS: This is a 51-year-old female admitted to [facility] on 12/31/2016 out of the acute onset of right upper quadrant pain. She states she was sitting at her desk at work and suddenly began to have right upper quadrant pain. This was accompanied by nausea and chills. This is the first episode she has ever had. She has not had a bowel movement since Tuesday. She states she had an EGD done [address] Rasheed that demonstrated gastric ulcers secondary to Naproxen use. She was advised by her primary care to no longer take NSAIDs. She does take occasional ibuprofen. Her evaluation has included laboratory values that show low levels on her LFTs with an AST of 12 and bilirubin of 0.2. Her hematology does show currently some anemia with hemoglobin of 11 and MCV of 89. Imaging demonstrated gallbladder distention and possible sonographic Ricardo sign with a common bile duct at 7 mm. Her transvaginal and pelvic ultrasound was unrevealing and CT of the abdomen and pelvis demonstrated no acute abnormality. PAST MEDICAL HISTORY: Gastric ulcers on EGD by Dr. Rasheed 5 years ago. She states these were secondary to Naproxen use, hypercholesterolemia, seasonal allergies, uterine ablation. FAMILY MEDICAL HISTORY: No colon cancer or gallbladder disease. SOCIAL HISTORY: She smokes 6 to 10 cigarettes a day. She denies alcohol or IV drug abuse. ALLERGIES: No known drug allergies. FAMILY MEDICAL HISTORY: 1. Cocaine use. 2. Diabetes. HOME MEDICATIONS: Include: 1. Albuterol. 2. Atorvastatin. 3. Vitamin B12. 4. Nexium. 5. Gabapentin. 6. Glipizide. 7. Metformin. 8. Januvia. REVIEW OF SYSTEMS: A 13-point review of systems was done. It is positive as per HPI and otherwise negative. PHYSICAL EXAMINATION: VITAL SIGNS: Temperature is 97.7, blood pressure 104/40, heart rate 75. GENERAL: She is a well-developed, well-nourished female, in no apparent distress. HEENT: Oropharynx is clear. CARDIOVASCULAR: S1, S2. LUNGS: Clear. ABDOMEN: Normoactive bowel sounds. Soft, tender to palpation right upper quadrant. EXTREMITIES: No edema. NEUROLOGIC: Awake, alert and oriented x3. LABORATORY VALUES: White blood cell count of 9.2 with hemoglobin of 11 and MCV of 89, platelets of 217. Coags showed an INR of 1. Chemistries show lipase to 331, ALT 9, AST 12, bilirubin 0.2, alkaline phosphatase is 104. UA was unrevealing. Tox screen was negative. IMAGING: As per HPI. ASSESSMENT AND PLAN: 1. Right upper quadrant abdominal pain: Question of peptic ulcer disease versus biliary dyskinesia. She has been started on at this time. I will continue this. She is scheduled for PIPIDA tomorrow. We will follow the results. Pending that she may require an upper endoscopy for further evaluation. 2. Past medical history of gastric ulcer: She reports that this was 5 years ago on an EGD by Dr. Rasheed. She is advised to avoid non-steroidal anti-inflammatory drugs. 3. Anemia: Hemoglobin dropped today. We will continue to monitor this in house. Please continue proton pump inhibitor. 4. Colorectal cancer screening: She reports she has never had a colonoscopy. This can be done as an outpatient by Dr. Rasheed. Thank you for allowing me and Dr. Rasheed to be able to participate in the care of this patient. HI MEJIA MD DR: ZONIA/rebecca JOB#: [id number] / [id number] ISRA Wills MD, CHERRIE MD THOMPSON, MICHAEL MD
[2017-01-02] MEDS: fentaNYL PF VIAL 100 MCG/2 ML VIAL IV PRN (22:51)
[2017-01-02 23:00] VITALS: BP 132/78
[2017-01-03] VITALS (11 sets, daily range): BP systolic 109–142; BP diastolic 54–83
[2017-01-03] MEDS: fentaNYL PF VIAL 100 MCG/2 ML VIAL IV PRN ×6 (03:30→23:45)
[2017-01-03] MEDS: PANTOPRAZOLE IV PUSH 40 MG VIAL. IVP SCH (03:35)
[2017-01-03] MEDS: IV NORMAL SALINE 1000ML BAG 1,000 ML IV SCH ×2 (03:43→16:18)
[2017-01-03] MEDS ORDERED: SINCALIDE IV ONE (07:30)
[2017-01-03] MEDS ORDERED: NORMAL SALINE IV ONE (07:30)
--- NOTE | 2017-01-03 08:54 | PDOC ---
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 01/03/17 0854: SURGICAL PROGRESS NOTE Subjective down for PIPPIDA scan Will FU on results Vital Signs Vital Signs Date Time Temp Pulse Resp B/P (MAP) Pulse Ox O2 Delivery O2 Flow Rate FiO2 01/03/17 06:56 96 Room Air 01/03/17 03:00 98.1 81 20 126/71 (89) 98.1 I&O Intake and Output 01/03/17 07:00 Intake Total 3250 ml Balance 3250 ml Intake Oral 1250 ml IV Total 2000 ml # Voids 9 Labs Laboratory Tests Test 01/01/17 10:31 01/01/17 20:55 01/02/17 08:09 01/02/17 10:39 Glucose (Fingerstick) 152 mg/dL (70-99) 157 mg/dL (70-99) 90 mg/dL (70-99) 115 mg/dL (70-99) Test 01/02/17 16:08 01/02/17 21:18 Glucose (Fingerstick) 120 mg/dL (70-99) 159 mg/dL (70-99) Laboratory Tests Test 01/02/17 10:39 01/02/17 16:08 01/02/17 21:18 Glucose (Fingerstick) 115 mg/dL (70-99) 120 mg/dL (70-99) 159 mg/dL (70-99) JOHNNIE COSME MD 01/03/17 1215: SURGICAL PROGRESS NOTE Assessment/Plan addendum i saw and examined her. RUQ pain persists, is moderate. slightly improved since admission. improves with pain medication afeb vss alert, tearful when we discuss surgery abd soft nd focal tenderness, severe in RUQ pippida with decreased gb ef 27%. no specific reproduction of pain with test a/p biliary dyskinesia--discussed both nonop and operative treatment. while tearful about having surgery, she is very adamant that she wants to undergo lap salud. we discussed plainly the risk that her pain may not improve with surgery. she desires to proceed. using a drawing to aid the discussion, we discussed the risks of bleeding, infection, need to convert to open, bile leak, injury to hollow viscus/bile duct/vasculature, and remote risks of ami, cva, dvt /pe, pneumonia and . questions answered and she desires to proceed. surgery scheduled for 3 pm today. Problems: JANA CRESPO APRN January 03, 2017 08:54 JOHNNIE COSME MD January 03, 2017 12:15
[2017-01-03] MEDS: GABAPENTIN 300 MG CAPSULE. PO SCH ×3 (09:00→20:07)
[2017-01-03] MEDS: glipiZIDE ER 2.5 MG TAB.ER.24 PO SCH (09:00)
[2017-01-03] MEDS: LINAGLIPTIN 5 MG TABLET PO SCH (09:00)
[2017-01-03] MEDS: CYANOCOBALAMIN (VITAMIN B-12) 1,000 MCG TABLET. PO SCH ×2 (09:00→20:07)
[2017-01-03] MEDS: DOCUSATE SODIUM 100 MG CAPSULE. PO SCH ×2 (09:00→20:07)
--- NOTE | 2017-01-03 10:06 | RAD ---
Radionuclide hepatobiliary scan, 01/03/2017: History: Right upper quadrant pain Following IV injection of 5.5 mCi of technetium 99m Choletec there was prompt uptake of the radionuclide from the blood stream by the liver. Bile duct and gallbladder activity is present at 15 minutes. Small bowel activity develops at 20 minutes. Additional imaging of the gallbladder was performed following IV injection of 1.6 mcg of cholecystokinin. The gallbladder ejection fraction was measured at 27%. 30-50% is considered to be the borderline low range. IMPRESSION: 1. No evidence of cystic duct or common bile duct obstruction. 2. Decreased gallbladder ejection fraction of 27%.
[2017-01-03] MEDS ORDERED: IV RINGERS,LACTATED 1000ML 1,000 ML IV SCH (11:35)
--- NOTE | 2017-01-03 11:35 | PDOC ---
PROGRESS NOTES Chief Complaint Chief Complaint Abdominal pain Overweight Leukocytosis, resolved Migraine headaches History of Present Illness History of Present Illness Patient had just gotten back from PIPIDA scan this morning Still complains of abdominal pain Asking for increased Fentanyl, but states it gives her a headache Discussed care with nurse Vitals Vitals Vital Signs Date Time Temp Pulse Resp B/P (MAP) Pulse Ox O2 Delivery O2 Flow Rate FiO2 01/03/17 10:38 22 96 Room Air 01/03/17 03:00 98.1 81 126/71 (89) 98.1 Physical Exam General: Alert, Oriented X3, No acute distress Heart: Normal S1, Normal S2 Abdomen: Normal bowel sounds, Soft, No hepatosplenomegaly, Other (tender to mild palp, no guarding) Extremities: No clubbing, No cyanosis, No edema, Normal pulses, No tenderness/ swelling Skin: No rashes, No breakdown, No significant lesion Labs LABS Laboratory Tests Test 01/02/17 16:08 01/02/17 21:18 Glucose (Fingerstick) 120 mg/dL (70-99) 159 mg/dL (70-99) Review of Systems Review of Systems General: denies weakness GI: generalized abdominal pain Neuro: migraine headaches Assessment and Plan Assessmemt and Plan Assessment: Abdominal pain Migraine headaches Overweight Leukocytosis, resolved Plan: -Await GI input on PIPIDA scan - showed decreased gallbladder EF at 27% -Continue pain management -Continue IVF -Recheck labs in AM -LFTs in AM -PT/OT as appropriate -Subspecialty input appreciated Problems: Comment Review of Relevant I have reviewed the following items marlo (where applicable) has been applied. Labs Laboratory Tests Test 01/01/17 20:55 01/02/17 08:09 01/02/17 10:39 01/02/17 16:08 Glucose (Fingerstick) 157 mg/dL (70-99) 90 mg/dL (70-99) 115 mg/dL (70-99) 120 mg/dL (70-99) Test 01/02/17 21:18 Glucose (Fingerstick) 159 mg/dL (70-99) Laboratory Tests Test 01/02/17 16:08 01/02/17 21:18 Glucose (Fingerstick) 120 mg/dL (70-99) 159 mg/dL (70-99) Medications Current Medications Morphine Sulfate 4 mg PRN Q15MIN PRN IV/SQ PAIN GREATER THAN 3/10 Last administered on 12/31/16 14:58; Start 12/31/16 at 11:30; Stop 01/01/17 at 11:29 ; Status DC Sodium Chloride 1,000 ml @ 1,000 mls/hr Q1H IV Last administered on 12/31/16 11:55; Start 12/31/16 at 11:28; Stop 12/31/16 at 12:27; Status DC Ondansetron HCl (Zofran) 4 mg 1X ONCE IV Last administered on 12/31/16 11:56 ; Start 12/31/16 at 11:30; Stop 12/31/16 at 11:31; Status DC Iohexol (Omnipaque 300 Mg/ml) 75 ml 1X ONCE IV Last administered on 12/31/16 11:45; Start 12/31/16 at 11:45; Stop 12/31/16 at 11:46; Status DC Iohexol (Omnipaque 240 Mg/ml) 50 ml 1X ONCE PO Last administered on 12/31/16 11:45; Start 12/31/16 at 11:45; Stop 12/31/16 at 11:46; Status DC Info (Do NOT chart on this entry -- for MONITORING) 1 each PRN DAILY PRN MC SEE COMMENTS; Start 12/31/16 at 11:45; Stop 01/02/17 at 11:44; Status DC Ondansetron HCl (Zofran) 4 mg PRN Q6HRS PRN IV NAUSEA/VOMITING; Start 12/31/16 at 14:45 Prochlorperazine Edisylate (Compazine) 10 mg PRN Q6HRS PRN IV NAUSEA/VOMITING Last administered on 01/02/17 13:34; Start 12/31/16 at 14:45 Prochlorperazine (Compazine) 25 mg PRN Q12HR PRN [place] NAUSEA/VOMITING; Start at 14:45 Morphine Sulfate 2 mg PRN Q2HR PRN IV PAIN Last administered on 01/02/17 19:19 ; Start 12/31/16 at 14:45 Oxycodone HCl (Roxicodone) 5 mg PRN Q4HRS PRN PO MILD PAIN, 1ST CHOICE Last administered on 12/31/16 23:26; Start 12/31/16 at 14:45 Ketorolac Tromethamine (Toradol) 15 mg PRN Q6HRS PRN IV PAIN; Start 12/31/16 at 14:45; Stop 01/05/17 at 14:44 Acetaminophen (Tylenol) 650 mg PRN Q6HRS PRN PO Headaches, Temp > 101.5F Last administered on 01/02/17 07:44; Start 12/31/16 at 14:45 Ibuprofen (Motrin) 400 mg PRN Q6HRS PRN PO MILD PAIN; Start 12/31/16 at 14:45 Docusate Sodium (Colace) 100 mg BID PO Last administered on 01/02/17 21:12; Start 12/31/16 at 21:00 Magnesium Hydroxide (Milk Of Magnesia) 2,400 mg PRN Q12HR PRN PO CONSTIPATION; Start 12/31/16 at 14:45 Lactulose 20 gm PRN Q12HR PRN PO CONSTIPATION; Start 12/31/16 at 14:45 Bisacodyl (Dulcolax Supp) 10 mg PRN DAILY PRN [place] CONSTIPATION; Start 12/31/16 at 14:45 Ondansetron HCl (Zofran) 4 mg PRN Q8HRS PRN IV NAUSEA/VOMITING; Start 12/31/16 at 15:45; Stop 12/31/16 at 15:48; Status DC Morphine Sulfate 4 mg PRN Q2HR PRN IV PAIN Last administered on 01/01/17 12:48 ; Start 12/31/16 at 15:45; Stop 01/01/17 at 15:44; Status DC Sodium Chloride 1,000 ml @ 75 mls/hr [id number] IV Last administered on 03:43; Start 01/01/17 at 12:30 Pantoprazole Sodium (Protonix Vial) 40 mg DAILYAC IVP Last administered on 01/03 03:35; Start 01/01/17 at 12:45 Sodium Chloride 1,000 ml @ 1,000 mls/hr 1X ONCE IV Last administered on 15:42; Start 01/01/17 at 15:00; Stop 01/01/17 at 15:59; Status DC Atorvastatin Calcium (Lipitor) 20 mg HS PO Last administered on 01/02/17 21:12 ; Start 01/01/17 at 21:00 Glipizide (Glucotrol Er) 2.5 mg DAILY PO Last administered on 01/02/17 10:39; Start 01/02/17 at 09:00 Metformin HCl (Glucophage) 1,000 mg BIDWMEALS PO ; Start 01/02/17 at 17:00 Non-Formulary Medication 2 puff BID PRN INH SHORTNESS OF BREATH; Start at 20:45; Status UNV Cyanocobalamin (Vitamin B-12) 1,000 mcg BID PO Last administered on 01/02/17 21:12; Start 01/01/17 at 21:00 Non-Formulary Medication 1 cap PRN PRN PO DYSPEPSIA; Start 01/01/17 at 20:45; Status UNV Gabapentin (Neurontin) 300 mg TID PO Last administered on 01/02/17 21:13; Start 01/01/17 at 21:00 Linagliptin (Tradjenta) 5 mg DAILY PO Last administered on 01/02/17 07:45; Start 01/02/17 at 09:00 Albuterol Sulfate (Ventolin Neb Soln) 2.5 mg PRN BID PRN NEB SHORTNESS OF BREATH Last administered on 01/02/17 17:13; Start 01/01/17 at 20:45 Sumatriptan Succinate (Imitrex) 25 mg PRN Q2HR PRN PO MIGRAINE HEADACHE Last administered on 01/02/17 21:12; Start 01/02/17 at 09:30 Sumatriptan Succinate (Imitrex) 50 mg 1X ONCE PO Last administered on 10:40; Start 01/02/17 at 09:30; Stop 01/02/17 at 09:31; Status DC Fentanyl Citrate (Fentanyl 2ml Vial) 50 mcg PRN Q2HR PRN IV PAIN Last administered on 01/03/17 10:38; Start 01/02/17 at 22:45 Sincalide 1.56 mcg/Sodium Chloride 30 ml @ 120 mls/hr 1X ONCE IV Last administered on 01/03/17 08:55; Start 01/03/17 at 07:30; Stop 01/03/17 at 07:44 ; Status DC Lorazepam (Ativan) 1 mg PRN Q6HRS PRN IV ANXIETY / AGITATION; Start 01/03/17 at 08:45 Active Scripts Active Reported Nexium Capsule (Esomeprazole Magnesium) 40 Mg Capsule.dr 1 Cap PO PRN PRN Proair Hfa Inhaler (Albuterol Sulfate) 8.5 Gm Hfa.aer.ad 2 Puff INH BID PRN B-12 (Cyanocobalamin (Vitamin B-12)) 1,000 Mcg Tablet.er 1,000 Mcg PO BID Januvia (Sitagliptin Phosphate) 100 Mg Tablet 1 Tab PO DAILY Metformin Hcl 1,000 Mg Tablet 1,000 Mg PO BIDWMEALS Glipizide Er (Glipizide) 2.5 Mg Tab.er.24 1 Tab PO DAILY Atorvastatin Calcium 20 Mg Tablet 20 Mg PO HS Gabapentin 300 Mg Capsule 300 Mg PO TID Vitals/I & O Vital Sign - Last 24 Hours 01/02/17 01/02/17 01/02/17 01/02/17 11:42 13:39 15:00 17:14 Temp 97.7 99.9 97.7 99.9 Pulse 75 100 Resp 20 20 B/P (MAP) 101/40 (60) 136/79 (98) Pulse Ox 100 96 O2 Delivery Room Air Room Air Room Air Room Air 01/02/17 01/02/17 01/02/17 01/02/17 19:00 19:19 19:49 20:00 Temp 100.8 100.8 Pulse 100 Resp 18 B/P (MAP) 130/70 (90) Pulse Ox 95 96 96 O2 Delivery Room Air Room Air Room Air Room Air 01/02/17 01/02/17 01/03/17 01/03/17 22:51 23:00 03:00 03:30 Temp 98.8 98.1 98.8 98.1 Pulse 100 81 Resp 18 20 B/P (MAP) 132/78 (96) 126/71 (89) Pulse Ox 96 96 92 96 O2 Delivery Room Air Room Air Room Air Room Air 01/03/17 01/03/17 01/03/17 04:00 06:56 10:38 Resp 22 Pulse Ox 96 96 96 O2 Delivery Room Air Room Air Room Air Intake and Output 01/02/17 01/02/17 01/03/17 15:00 23:00 07:00 Intake Total 800 ml 1450 ml 1000 ml Balance 800 ml 1450 ml 1000 ml MICHI BUSTAMANTE III DO January 03, 2017 11:35
[2017-01-03] MEDS ORDERED: PROCHLORPERAZINE 10 MG/2 ML VIAL. IV PRN (11:45)
[2017-01-03] MEDS ORDERED: MORPHINE SULFATE 2 MG/ML DISP.SYRIN. IV PRN (11:45)
[2017-01-03] MEDS ORDERED: HYDROmorphone 2 MG/ML VIAL IV PRN (11:45)
[2017-01-03] MEDS ORDERED: ONDANSETRON PF 4 MG/2 ML VIAL. IV PRN (11:45)
[2017-01-03] MEDS ORDERED: fentaNYL PF VIAL 100 MCG/2 ML VIAL IV PRN ×2 (11:45)
[2017-01-03] MEDS ORDERED: LIDOCAINE 1% 1 ML SYRINGE. ID PRN (11:45)
[2017-01-03] MEDS ORDERED: CONTRAST GIVEN MC PRN (12:30)
[2017-01-03] MEDS ORDERED: BUPIVAC MPF-EPI 0.5%-1:200000 30 ML VIAL. ONE (12:34)
[2017-01-03] MEDS ORDERED: IOHEXOL 300 MG/ML 50 ML VIAL. ONE (12:34)
[2017-01-03] MEDS ORDERED: SURGICEL HEMOSTAT 4X8 EACH. ONE (12:34)
[2017-01-03] MEDS ORDERED: DESFLURANE 61 TO 120 MINUTES IH ONE (13:16)
[2017-01-03] MEDS ORDERED: fentaNYL PF VIAL 100 MCG/2 ML VIAL ONE (13:16)
[2017-01-03] MEDS ORDERED: ONDANSETRON PF 4 MG/2 ML VIAL. ONE (13:16)
[2017-01-03] MEDS ORDERED: DEXAMETHASONE SOD PHOS 20 MG/5 ML VIAL. ONE (13:16)
[2017-01-03] MEDS ORDERED: PROPOFOL 20 ML IV ONE (13:16)
[2017-01-03] MEDS ORDERED: MIDAZOLAM HCL/PF 2 MG/2 ML VIAL. ONE (13:16)
[2017-01-03] MEDS ORDERED: LIDOCAINE 2% PF Vial for OR 5 ML VIAL. ONE (13:16)
[2017-01-03] MEDS ORDERED: ROCURONIUM 50 MG/5 ML VIAL. ONE (13:17)
[2017-01-03] MEDS ORDERED: SUCCINYLCHOLINE 200 MG/10 ML VIAL. ONE (13:17)
--- NOTE | 2017-01-03 13:34 | PDOC ---
Subjective: Subjective: RUQ pain. Some nausea after PIPIDA. Says cholecystectomy today at 3:00. Objective: Vital Signs: Vital Signs Date Time Temp Pulse Resp B/P (MAP) Pulse Ox O2 Delivery O2 Flow Rate FiO2 01/03/17 11:00 98.1 75 20 133/83 (100) 99 Room Air 98.1 Labs: Laboratory Tests Test 01/02/17 16:08 01/02/17 21:18 01/03/17 11:50 Glucose (Fingerstick) 120 mg/dL 159 mg/dL 130 mg/dL Imaging: HIDA 01/03/17 IMPRESSION: 1. No evidence of cystic duct or common bile duct obstruction. 2. Decreased gallbladder ejection fraction of 27%. PE: GEN: NAD LUNGS: CTAB HEART: RRR ABD: RUQ discomfort NEURO/PSYCH: A & O 3 A/P: RUQ pain -HIDA as above H/o gastric ulcer -on IV PPI Anemia CRC screen -no previous colonoscopy -- Plans for cholecystectomy this afternoon. Will follow. SANJIV GRANDE January 03, 2017 13:34
[2017-01-03] MEDS ORDERED: KETOROLAC 30 MG/ML INJ FOR OR. INJ ONE (15:09)
[2017-01-03] MEDS ORDERED: ESMOLOL 100 MG/10 ML VIAL. IV ONE (15:09)
--- NOTE | 2017-01-03 15:49 | RAD ---
Intraoperative cholangiogram, 2 views, 01/03/2017: History: Cholecystectomy Contrast was injected into the cystic duct remnant. 0.17 minutes of fluoroscopy time was utilized. There is good flow of contrast into the duodenum at the ampulla. The common duct is of normal caliber. No filling defect is seen in the common duct to suggest a retained calculus. The incompletely opacified intrahepatic ducts are unremarkable. There appears to be minimal contrast extravasation near the catheter insertion site, probably on a technical basis. IMPRESSION: No significant abnormality is detected.
[2017-01-03] MEDS ORDERED: NEOSTIGMINE 10 MG/10 ML VIAL. ONE ×2 (15:54→15:57)
[2017-01-03] MEDS ORDERED: GLYCOPYRROLATE 1 MG/5 ML VIAL. ONE (15:55)
--- NOTE | 2017-01-03 16:35 | PDOC ---
BRIEF OPERATIVE NOTE Pre-Op Diagnosis biliary dyskinesia lap salud, ioc margaux caal ebl 25 ivf 1200 lydia well to rr stable #[id number] JOHNNIE COSME MD January 03, 2017 16:35
[2017-01-03] MEDS: oxyCODONE/APAP 5/325 1 TAB TABLET PO PRN (17:00)
--- NOTE | 2017-01-03 19:30 | OP ---
DATE OF SURGERY: 01/03/2017 PREOPERATIVE DIAGNOSIS: Biliary dyskinesia. POSTOPERATIVE DIAGNOSIS: Biliary dyskinesia. PROCEDURE: Laparoscopic cholecystectomy with intraoperative cholangiogram. SURGEON: Johnnie Cosme M.D. ANESTHESIA: General. ESTIMATED BLOOD LOSS: 25 mL. IV FLUIDS: 1200 mL. INDICATIONS: The patient is a 51-year-old female who presents with right upper quadrant pain. Ultrasound was negative for gallstones. A PIPIDA scan showed decreased gallbladder ejection fraction. FINDINGS: Intraoperative cholangiogram is normal. PROCEDURE IN DETAIL: After informed consent was obtained, the patient was taken to the Operating Room and placed in supine position. After adequate induction of general anesthesia, she was prepped and draped in the usual sterile fashion. An umbilical skin incision was made with a scalpel, subcutaneous tissues with a hemostat. [facility] was used to grab the fascia and lift it anteriorly. Veress was used to gain access to the peritoneal cavity. Low opening pressures confirmed intraperitoneal placement of Veress. Pneumoperitoneum to 15 mmHg was established followed by placement of 5-mm port. A 5-mm 30-degree lens was inserted which revealed good port placement. No evidence of entry trauma. She was placed head up, rotated towards her left. Three additional ports were placed under direct vision. The sites were injected with local anesthetic. Skin incisions were made, and then an 11-mm epigastric and two 5-mm right lateral ports were placed. The fundus of the gallbladder was retracted over the liver and slightly towards the right. The infundibulum was retracted towards the right and towards her toes to open triangle of Calot. She had omental adhesions to the gallbladder. These were taken down with cautery. The patient had a large vessel on the omentum that was adherent to the gallbladder wall. This was controlled with a clip criminal justice social worker. This was on the body of the gallbladder well away from the triangle of Calot. The omentum was peeled away from the infundibulum. The infundibulum was then retracted towards her right and towards her toes to open the triangle of Calot. The leading peritoneal edge was scored with cautery medially and laterally and carried back towards the liver. [place] dissector was then used to dissect out the triangle of Calot. At the completion of dissection, 2 structures were seen leading directly to the gallbladder, one was a cystic artery which had an anterior and posterior branch and one was the cystic duct. Two clips were placed on cystic artery anterior branch proximally, one distally and the artery divided sharply. A clip was placed on cystic duct adjacent to the gallbladder. Ductotomy was made with scissors. Intraoperative cholangiogram showed free flow of contrast through the cystic duct, common bile duct, common hepatic, left and right hepatics, intrahepatic radicles, free flow of contrast into the duodenum with no filling defects noted. Intraoperatively, it was noted that she had a minimal amount of extravasation at the cystic ductotomy site where the catheter inserted, but most, the contrast flowed distally into the ductal system. The cholangiogram was interpreted as normal and was completed. The catheter was removed. Three clips were placed on the cystic duct distal to the ductotomy. Ductotomy was completed with scissors. This posterior branch of cystic artery was clipped twice proximally and once distally and divided sharply. Gallbladder was removed from bed of liver with cautery and placed in laparoscopic bag and brought out through the epigastric incision. The right upper quadrant was irrigated. Irrigant returned clear. There was no bleeding or bile leakage noted from the liver bed or from the cystic artery and cystic duct stumps. Fascial closure device was used to close the fascia at the epigastric incision using 0 Vicryl suture. The ports were removed under direct vision. They were hemostatic. Pneumoperitoneum was desufflated. Skin incisions were closed with 4-0 Monocryl in subcuticular fashion. Sterile dressings were placed. She tolerated the procedure well. There were no apparent complications. She was then transferred in stable condition to Recovery Room. JOHNNIE COSME MD DR: CAITLIN/rebecca JOB#: [id number] / [id number] MICHI Liu Dr. Michael MTDD
[2017-01-03] MEDS: ATORVASTATIN CALCIUM 20 MG TABLET PO SCH (20:07)
[2017-01-03] MEDS ORDERED: DEXTROSE 50% 25 GM / 50ML DISP.SYRIN. IV PRN (21:15)
[2017-01-03] MEDS: INSULIN ASPART 300 UNITS/3 ML INSULN.PEN SQ SCH (21:48)
[2017-01-04] MEDS: fentaNYL PF VIAL 100 MCG/2 ML VIAL IV PRN ×2 (03:10→11:57)
[2017-01-04] MEDS: oxyCODONE/APAP 5/325 1 TAB TABLET PO PRN ×4 (05:17→20:16)
[2017-01-04] MEDS: KETOROLAC 15 MG/ML VIAL. IV PRN ×3 (05:17→20:18)
[2017-01-04 06:18] LABS: BASO # 0.1 x10^3/uL (0.0-0.2); BASO % 0 % (0-3); EOS % 0 % (0-3); HEMATOCRIT 33.1 % (36.0-47.0); HEMOGLOBIN 11.5 g/dL (12.0-15.5); LYMPH # 1.1 x10^3/uL (1.0-4.8); LYMPH % 6 % (24-48); MEAN CORPUSCULAR HEMOGLOBIN 30 pg (25-35); MEAN CORPUSCULAR HGB CONC 35 g/dL (31-37); MEAN CORPUSCULAR VOLUME 86 fL (79-100); MONO % 4 % (0-9); NEUT % 90 % (31-73); PLATELET COUNT 238 x10^3/uL (140-400); RED BLOOD COUNT 3.84 x10^6/uL (3.50-5.40); RED CELL DISTRIBUTION WIDTH 13.4 % (11.5-14.5); WHITE BLOOD COUNT 18.4 x10^3/uL (4.0-11.0)
[2017-01-04] MEDS: IV NORMAL SALINE 1000ML BAG 1,000 ML IV SCH ×2 (06:21→20:18)
[2017-01-04 06:42] LABS: ALBUMIN 3.2 g/dL (3.4-5.0); ALBUMIN/GLOBULIN RATIO 1.1 (1.0-1.7); CALCIUM 9.3 mg/dL (8.5-10.1); CREATININE 0.8 mg/dL (0.6-1.0); GFR 91.9; POTASSIUM 4.1 mmol/L (3.5-5.1); TOTAL BILIRUBIN 0.3 mg/dL (0.2-1.0); TOTAL PROTEIN 6.2 g/dL (6.4-8.2)
[2017-01-04 07:00] VITALS: BP 137/76
[2017-01-04 07:48] LABS: PLT ESTIMATE ADEQUATE (ADEQUATE)
[2017-01-04] MEDS: LINAGLIPTIN 5 MG TABLET PO SCH (08:29)
[2017-01-04] MEDS: CYANOCOBALAMIN (VITAMIN B-12) 1,000 MCG TABLET. PO SCH ×2 (08:29→21:23)
[2017-01-04] MEDS: GABAPENTIN 300 MG CAPSULE. PO SCH ×3 (08:29→21:22)
[2017-01-04] MEDS: glipiZIDE ER 2.5 MG TAB.ER.24 PO SCH (08:29)
[2017-01-04] MEDS: PANTOPRAZOLE IV PUSH 40 MG VIAL. IVP SCH (08:29)
[2017-01-04] MEDS: DOCUSATE SODIUM 100 MG CAPSULE. PO SCH ×2 (08:29→21:23)
[2017-01-04] MEDS: INSULIN ASPART 300 UNITS/3 ML INSULN.PEN SQ SCH ×4 (08:42→21:26)
--- NOTE | 2017-01-04 10:36 | PDOC ---
Subjective: Subjective: Pain around incisions. Objective: Vital Signs: Vital Signs Date Time Temp Pulse Resp B/P (MAP) Pulse Ox O2 Delivery O2 Flow Rate FiO2 01/04/17 09:35 20 01/04/17 08:00 Room Air 01/04/17 07:00 97.9 87 137/76 (96) 98 97.9 01/04/17 06:17 10.0 Labs: Laboratory Tests Test 01/03/17 11:50 01/03/17 16:43 01/03/17 17:27 01/03/17 20:12 Glucose (Fingerstick) 130 mg/dL 174 mg/dL 181 mg/dL 373 mg/dL Test 01/04/17 05:30 White Blood Count 18.4 x10^3/uL Red Blood Count 3.84 x10^6/uL Hemoglobin 11.5 g/dL Hematocrit 33.1 % Mean Corpuscular Volume 86 fL Mean Corpuscular Hemoglobin 30 pg Mean Corpuscular Hemoglobin Concent 35 g/dL Red Cell Distribution Width 13.4 % Platelet Count 238 x10^3/uL Neutrophils (%) (Auto) 90 % Lymphocytes (%) (Auto) 6 % Monocytes (%) (Auto) 4 % Eosinophils (%) (Auto) 0 % Basophils (%) (Auto) 0 % Neutrophils # (Auto) 16.5 x10^3uL Lymphocytes # (Auto) 1.1 x10^3/uL Monocytes # (Auto) 0.8 x10^3/uL Eosinophils # (Auto) 0.0 x10^3/uL Basophils # (Auto) 0.1 x10^3/uL Segmented Neutrophils % 86 % Band Neutrophils % 2 % Lymphocytes % 6 % Monocytes % 6 % Platelet Estimate Adequate Sodium Level 140 mmol/L Potassium Level 4.1 mmol/L Chloride Level 104 mmol/L Carbon Dioxide Level 23 mmol/L Anion Gap 13 Blood Urea Nitrogen 12 mg/dL Creatinine 0.8 mg/dL Estimated GFR (Cockcroft-Gault) 91.9 BUN/Creatinine Ratio 15 Glucose Level 280 mg/dL Calcium Level 9.3 mg/dL Total Bilirubin 0.3 mg/dL Aspartate Amino Transf (AST/SGOT) 22 U/L Alanine Aminotransferase (ALT/SGPT) 27 U/L Alkaline Phosphatase 102 U/L Total Protein 6.2 g/dL Albumin 3.2 g/dL Albumin/Globulin Ratio 1.1 PE: GEN: NAD LUNGS: CTAB HEART: RRR ABD: incisional tenderness NEURO/PSYCH: A & O 3 A/P: S/p cholecystectomy, biliary dyskinesia, RUQ pain -normal IOC -- Diet per surgery, will follow. SANJIV GRANDE January 04, 2017 10:36
[2017-01-04 11:00] VITALS: BP 123/71
--- NOTE | 2017-01-04 11:17 | PDOC ---
PROGRESS NOTES Chief Complaint Chief Complaint Abdominal pain S/p lap salud POD#1 Biliary dyskinesia Overweight Leukocytosis, resolved Migraine headaches History of Present Illness History of Present Illness Patient was lying in bed Complains of pain around incision sites States abdominal pain from pre-op has improved She was able to eat a full breakfast Discussed care with nurse Vitals Vitals Vital Signs Date Time Temp Pulse Resp B/P (MAP) Pulse Ox O2 Delivery O2 Flow Rate FiO2 01/04/17 11:00 98.0 88 18 123/71 (88) 99 Room Air 98.0 01/04/17 06:17 10.0 Physical Exam General: Alert, Oriented X3, No acute distress Heart: Regular rate, Normal S1, Normal S2 Lungs: Clear, Other (no wheezing) Abdomen: Normal bowel sounds, Soft, No hepatosplenomegaly, Other (tender to mild palp, no guarding) Extremities: No clubbing, No cyanosis, No edema, Normal pulses, No tenderness/ swelling Skin: No rashes, No breakdown, No significant lesion, Other (4 healing surgical incision sites) Labs LABS Laboratory Tests Test 01/03/17 11:50 01/03/17 16:43 01/03/17 17:27 01/03/17 20:12 Glucose (Fingerstick) 130 mg/dL (70-99) 174 mg/dL (70-99) 181 mg/dL (70-99) 373 mg/dL (70-99) Test 01/04/17 05:30 White Blood Count 18.4 x10^3/uL (4.0-11.0) Red Blood Count 3.84 x10^6/uL (3.50-5.40) Hemoglobin 11.5 g/dL (12.0-15.5) Hematocrit 33.1 % (36.0-47.0) Mean Corpuscular Volume 86 fL (79-100) Mean Corpuscular Hemoglobin 30 pg (25-35) Mean Corpuscular Hemoglobin Concent 35 g/dL (31-37) Red Cell Distribution Width 13.4 % (11.5-14.5) Platelet Count 238 x10^3/uL (140-400) Neutrophils (%) (Auto) 90 % (31-73) Lymphocytes (%) (Auto) 6 % (24-48) Monocytes (%) (Auto) 4 % (0-9) Eosinophils (%) (Auto) 0 % (0-3) Basophils (%) (Auto) 0 % (0-3) Neutrophils # (Auto) 16.5 x10^3uL (1.8-7.7) Lymphocytes # (Auto) 1.1 x10^3/uL (1.0-4.8) Monocytes # (Auto) 0.8 x10^3/uL (0.0-1.1) Eosinophils # (Auto) 0.0 x10^3/uL (0.0-0.7) Basophils # (Auto) 0.1 x10^3/uL (0.0-0.2) Segmented Neutrophils % 86 % (35-66) Band Neutrophils % 2 % (0-9) Lymphocytes % 6 % (24-48) Monocytes % 6 % (0-10) Platelet Estimate Adequate (ADEQUATE) Sodium Level 140 mmol/L (136-145) Potassium Level 4.1 mmol/L (3.5-5.1) Chloride Level 104 mmol/L (98-107) Carbon Dioxide Level 23 mmol/L (21-32) Anion Gap 13 (6-14) Blood Urea Nitrogen 12 mg/dL (7-20) Creatinine 0.8 mg/dL (0.6-1.0) Estimated GFR (Cockcroft-Gault) 91.9 BUN/Creatinine Ratio 15 (6-20) Glucose Level 280 mg/dL (70-99) Calcium Level 9.3 mg/dL (8.5-10.1) Total Bilirubin 0.3 mg/dL (0.2-1.0) Aspartate Amino Transf (AST/SGOT) 22 U/L (15-37) Alanine Aminotransferase (ALT/SGPT) 27 U/L (14-59) Alkaline Phosphatase 102 U/L (46-116) Total Protein 6.2 g/dL (6.4-8.2) Albumin 3.2 g/dL (3.4-5.0) Albumin/Globulin Ratio 1.1 (1.0-1.7) Review of Systems Review of Systems General: denies weakness GI: pain around incision sites, denies N/V/D/C Assessment and Plan Assessmemt and Plan Abdominal pain S/p lap salud POD#1 Biliary dyskinesia Overweight Leukocytosis, resolved Migraine headaches Plan: -Surgery following, continue regular diet -Continue pain management -Continue SSI - glucose 280 this am -Monitor for post-op fevers -Discharge dispo pending -Subspecialty input appreciated Problems: Comment Review of Relevant I have reviewed the following items marlo (where applicable) has been applied. Labs Laboratory Tests Test 01/02/17 16:08 01/02/17 21:18 01/03/17 11:50 01/03/17 16:43 Glucose (Fingerstick) 120 mg/dL (70-99) 159 mg/dL (70-99) 130 mg/dL (70-99) 174 mg/dL (70-99) Test 01/03/17 17:27 01/03/17 20:12 01/04/17 05:30 Glucose (Fingerstick) 181 mg/dL (70-99) 373 mg/dL (70-99) White Blood Count 18.4 x10^3/uL (4.0-11.0) Red Blood Count 3.84 x10^6/uL (3.50-5.40) Hemoglobin 11.5 g/dL (12.0-15.5) Hematocrit 33.1 % (36.0-47.0) Mean Corpuscular Volume 86 fL (79-100) Mean Corpuscular Hemoglobin 30 pg (25-35) Mean Corpuscular Hemoglobin Concent 35 g/dL (31-37) Red Cell Distribution Width 13.4 % (11.5-14.5) Platelet Count 238 x10^3/uL (140-400) Neutrophils (%) (Auto) 90 % (31-73) Lymphocytes (%) (Auto) 6 % (24-48) Monocytes (%) (Auto) 4 % (0-9) Eosinophils (%) (Auto) 0 % (0-3) Basophils (%) (Auto) 0 % (0-3) Neutrophils # (Auto) 16.5 x10^3uL (1.8-7.7) Lymphocytes # (Auto) 1.1 x10^3/uL (1.0-4.8) Monocytes # (Auto) 0.8 x10^3/uL (0.0-1.1) Eosinophils # (Auto) 0.0 x10^3/uL (0.0-0.7) Basophils # (Auto) 0.1 x10^3/uL (0.0-0.2) Segmented Neutrophils % 86 % (35-66) Band Neutrophils % 2 % (0-9) Lymphocytes % 6 % (24-48) Monocytes % 6 % (0-10) Platelet Estimate Adequate (ADEQUATE) Sodium Level 140 mmol/L (136-145) Potassium Level 4.1 mmol/L (3.5-5.1) Chloride Level 104 mmol/L (98-107) Carbon Dioxide Level 23 mmol/L (21-32) Anion Gap 13 (6-14) Blood Urea Nitrogen 12 mg/dL (7-20) Creatinine 0.8 mg/dL (0.6-1.0) Estimated GFR (Cockcroft-Gault) 91.9 BUN/Creatinine Ratio 15 (6-20) Glucose Level 280 mg/dL (70-99) Calcium Level 9.3 mg/dL (8.5-10.1) Total Bilirubin 0.3 mg/dL (0.2-1.0) Aspartate Amino Transf (AST/SGOT) 22 U/L (15-37) Alanine Aminotransferase (ALT/SGPT) 27 U/L (14-59) Alkaline Phosphatase 102 U/L (46-116) Total Protein 6.2 g/dL (6.4-8.2) Albumin 3.2 g/dL (3.4-5.0) Albumin/Globulin Ratio 1.1 (1.0-1.7) Laboratory Tests Test 01/03/17 11:50 01/03/17 16:43 01/03/17 17:27 01/03/17 20:12 Glucose (Fingerstick) 130 mg/dL (70-99) 174 mg/dL (70-99) 181 mg/dL (70-99) 373 mg/dL (70-99) Test 01/04/17 05:30 White Blood Count 18.4 x10^3/uL (4.0-11.0) Red Blood Count 3.84 x10^6/uL (3.50-5.40) Hemoglobin 11.5 g/dL (12.0-15.5) Hematocrit 33.1 % (36.0-47.0) Mean Corpuscular Volume 86 fL (79-100) Mean Corpuscular Hemoglobin 30 pg (25-35) Mean Corpuscular Hemoglobin Concent 35 g/dL (31-37) Red Cell Distribution Width 13.4 % (11.5-14.5) Platelet Count 238 x10^3/uL (140-400) Neutrophils (%) (Auto) 90 % (31-73) Lymphocytes (%) (Auto) 6 % (24-48) Monocytes (%) (Auto) 4 % (0-9) Eosinophils (%) (Auto) 0 % (0-3) Basophils (%) (Auto) 0 % (0-3) Neutrophils # (Auto) 16.5 x10^3uL (1.8-7.7) Lymphocytes # (Auto) 1.1 x10^3/uL (1.0-4.8) Monocytes # (Auto) 0.8 x10^3/uL (0.0-1.1) Eosinophils # (Auto) 0.0 x10^3/uL (0.0-0.7) Basophils # (Auto) 0.1 x10^3/uL (0.0-0.2) Segmented Neutrophils % 86 % (35-66) Band Neutrophils % 2 % (0-9) Lymphocytes % 6 % (24-48) Monocytes % 6 % (0-10) Platelet Estimate Adequate (ADEQUATE) Sodium Level 140 mmol/L (136-145) Potassium Level 4.1 mmol/L (3.5-5.1) Chloride Level 104 mmol/L (98-107) Carbon Dioxide Level 23 mmol/L (21-32) Anion Gap 13 (6-14) Blood Urea Nitrogen 12 mg/dL (7-20) Creatinine 0.8 mg/dL (0.6-1.0) Estimated GFR (Cockcroft-Gault) 91.9 BUN/Creatinine Ratio 15 (6-20) Glucose Level 280 mg/dL (70-99) Calcium Level 9.3 mg/dL (8.5-10.1) Total Bilirubin 0.3 mg/dL (0.2-1.0) Aspartate Amino Transf (AST/SGOT) 22 U/L (15-37) Alanine Aminotransferase (ALT/SGPT) 27 U/L (14-59) Alkaline Phosphatase 102 U/L (46-116) Total Protein 6.2 g/dL (6.4-8.2) Albumin 3.2 g/dL (3.4-5.0) Albumin/Globulin Ratio 1.1 (1.0-1.7) Medications Current Medications Morphine Sulfate 4 mg PRN Q15MIN PRN IV/SQ PAIN GREATER THAN 3/10 Last administered on 12/31/16 14:58; Start 12/31/16 at 11:30; Stop 01/01/17 at 11:29 ; Status DC Sodium Chloride 1,000 ml @ 1,000 mls/hr Q1H IV Last administered on 12/31/16 11:55; Start 12/31/16 at 11:28; Stop 12/31/16 at 12:27; Status DC Ondansetron HCl (Zofran) 4 mg 1X ONCE IV Last administered on 12/31/16 11:56 ; Start 12/31/16 at 11:30; Stop 12/31/16 at 11:31; Status DC Iohexol (Omnipaque 300 Mg/ml) 75 ml 1X ONCE IV Last administered on 12/31/16 11:45; Start 12/31/16 at 11:45; Stop 12/31/16 at 11:46; Status DC Iohexol (Omnipaque 240 Mg/ml) 50 ml 1X ONCE PO Last administered on 12/31/16 11:45; Start 12/31/16 at 11:45; Stop 12/31/16 at 11:46; Status DC Info (Do NOT chart on this entry -- for MONITORING) 1 each PRN DAILY PRN MC SEE COMMENTS; Start 12/31/16 at 11:45; Stop 01/02/17 at 11:44; Status DC Ondansetron HCl (Zofran) 4 mg PRN Q6HRS PRN IV NAUSEA/VOMITING 1ST CHOICE; Start 12/31/16 at 14:45 Prochlorperazine Edisylate (Compazine) 10 mg PRN Q6HRS PRN IV NAUSEA/VOMITING 2ND CHOICE Last administered on 01/02/17 13:34; Start 12/31/16 at 14:45 Prochlorperazine (Compazine) 25 mg PRN Q12HR PRN [place] NAUSEA/VOMITING; Start at 14:45 Morphine Sulfate 2 mg PRN Q2HR PRN IV MODERATE PAIN Last administered on 19:19; Start 12/31/16 at 14:45 Oxycodone HCl (Roxicodone) 5 mg PRN Q4HRS PRN PO MILD PAIN, 1ST CHOICE Last administered on 12/31/16 23:26; Start 12/31/16 at 14:45 Ketorolac Tromethamine (Toradol) 15 mg PRN Q6HRS PRN IV PAIN Last administered on 01/04/17 05:17; Start 12/31/16 at 14:45; Stop 01/05/17 at 14:44 Acetaminophen (Tylenol) 650 mg PRN Q6HRS PRN PO Headaches, Temp > 101.5F Last administered on 01/02/17 07:44; Start 12/31/16 at 14:45 Ibuprofen (Motrin) 400 mg PRN Q6HRS PRN PO MILD PAIN; Start 12/31/16 at 14:45 Docusate Sodium (Colace) 100 mg BID PO Last administered on 01/04/17 08:29; Start 12/31/16 at 21:00 Magnesium Hydroxide (Milk Of Magnesia) 2,400 mg PRN Q12HR PRN PO CONSTIPATION 1ST CHOICE; Start 12/31/16 at 14:45 Lactulose 20 gm PRN Q12HR PRN PO CONSTIPATION 2ND CHOICE; Start 12/31/16 at 14: 45 Bisacodyl (Dulcolax Supp) 10 mg PRN DAILY PRN [place] CONSTIPATION; Start 12/31/16 at 14:45 Ondansetron HCl (Zofran) 4 mg PRN Q8HRS PRN IV NAUSEA/VOMITING; Start 12/31/16 at 15:45; Stop 12/31/16 at 15:48; Status DC Morphine Sulfate 4 mg PRN Q2HR PRN IV PAIN Last administered on 01/01/17 12:48 ; Start 12/31/16 at 15:45; Stop 01/01/17 at 15:44; Status DC Sodium Chloride 1,000 ml @ 75 mls/hr [id number] IV Last administered on 16:18; Start 01/01/17 at 12:30 Pantoprazole Sodium (Protonix Vial) 40 mg DAILYAC IVP Last administered on 01/04 08:29; Start 01/01/17 at 12:45 Sodium Chloride 1,000 ml @ 1,000 mls/hr 1X ONCE IV Last administered on 15:42; Start 01/01/17 at 15:00; Stop 01/01/17 at 15:59; Status DC Atorvastatin Calcium (Lipitor) 20 mg HS PO Last administered on 01/03/17 20:07 ; Start 01/01/17 at 21:00 Glipizide (Glucotrol Er) 2.5 mg DAILY PO Last administered on 01/04/17 08:29; Start 01/02/17 at 09:00 Metformin HCl (Glucophage) 1,000 mg BIDWMEALS PO ; Start 01/02/17 at 17:00; Stop 01/03/17 at 19:52; Status DC Non-Formulary Medication 2 puff BID PRN INH SHORTNESS OF BREATH; Start at 20:45; Status UNV Cyanocobalamin (Vitamin B-12) 1,000 mcg BID PO Last administered on 01/04/17 08:29; Start 01/01/17 at 21:00 Non-Formulary Medication 1 cap PRN PRN PO DYSPEPSIA; Start 01/01/17 at 20:45; Status UNV Gabapentin (Neurontin) 300 mg TID PO Last administered on 01/04/17 08:29; Start 01/01/17 at 21:00 Linagliptin (Tradjenta) 5 mg DAILY PO Last administered on 01/04/17 08:29; Start 01/02/17 at 09:00 Albuterol Sulfate (Ventolin Neb Soln) 2.5 mg PRN BID PRN NEB SHORTNESS OF BREATH Last administered on 01/02/17 17:13; Start 01/01/17 at 20:45 Sumatriptan Succinate (Imitrex) 25 mg PRN Q2HR PRN PO MIGRAINE HEADACHE Last administered on 01/02/17 21:12; Start 01/02/17 at 09:30 Sumatriptan Succinate (Imitrex) 50 mg 1X ONCE PO Last administered on 10:40; Start 01/02/17 at 09:30; Stop 01/02/17 at 09:31; Status DC Fentanyl Citrate (Fentanyl 2ml Vial) 50 mcg PRN Q2HR PRN IV SEVERE PAIN Last administered on 01/04/17 03:10; Start 01/02/17 at 22:45 Sincalide 1.56 mcg/Sodium Chloride 30 ml @ 120 mls/hr 1X ONCE IV Last administered on 01/03/17 08:55; Start 01/03/17 at 07:30; Stop 01/03/17 at 07:44 ; Status DC Lorazepam (Ativan) 1 mg PRN Q6HRS PRN IV ANXIETY / AGITATION Last administered on 01/04/17 08:50; Start 01/03/17 at 08:45 Ondansetron HCl (Zofran) 4 mg PRN Q6HRS PRN IV NAUSEA/VOMITING; Start 01/03/17 at 11:45; Stop 01/03/17 at 18:00; Status DC Fentanyl Citrate (Fentanyl 2ml Vial) 25 mcg PRN Q5MIN PRN IV MILD PAIN; Start 01/03/17 at 11:45; Stop 01/03/17 at 18:00; Status DC Fentanyl Citrate (Fentanyl 2ml Vial) 50 mcg PRN Q5MIN PRN IV MODERATE PAIN; Start 01/03/17 at 11:45; Stop 01/03/17 at 18:00; Status DC Morphine Sulfate 1 mg PRN Q10MIN PRN IV SEVERE PAIN; Start 01/03/17 at 11:45; Stop 01/03/17 at 18:00; Status DC Ringer's Solution 1,000 ml @ 30 mls/hr Q24H IV ; Start 01/03/17 at 11:35; Stop 01/03/17 at 23:34; Status DC Lidocaine HCl 2 ml PRN 1X PRN ID PRIOR TO IV START; Start 01/03/17 at 11:45; Stop 01/03/17 at 18:00; Status DC Hydromorphone HCl (Dilaudid) 0.5 mg PRN Q10MIN PRN IV SEV PAIN, Second choice; Start 01/03/17 at 11:45; Stop 01/03/17 at 18:00; Status DC Prochlorperazine Edisylate (Compazine) 5 mg PACU PRN PRN IV NAUSEA, MRX1; Start 01/03/17 at 11:45; Stop 01/03/17 at 18:00; Status DC Cefazolin Sodium/ Dextrose 50 ml @ 100 mls/hr 1X PREOP PRN IV certified residential medication aide to OR Last administered on 01/03/17 15:00; Start 01/03/17 at 12:15; Stop 01/04/17 at 18:00 Cellulose 1 each STK-MED ONCE .ROUTE ; Start 01/03/17 at 12:34; Stop 01/03/17 at 12:35; Status DC Bupivacaine HCl/ Epinephrine Bitart (Sensorcain-Mpf Epi 0.5%-[id number]) 30 ml STK -MED ONCE .ROUTE Last administered on 01/03/17 15:13; Start 01/03/17 at 12:34 ; Stop 01/03/17 at 12:35; Status DC Iohexol (Omnipaque 300 Mg/ml) 50 ml STK-MED ONCE .ROUTE Last administered on 15:40; Start 01/03/17 at 12:34; Stop 01/03/17 at 12:35; Status DC Dexamethasone Sodium Phosphate (Decadron) 20 mg STK-MED ONCE .ROUTE ; Start at 13:16; Stop 01/03/17 at 13:17; Status DC Ondansetron HCl (Zofran) 4 mg STK-MED ONCE .ROUTE ; Start 01/03/17 at 13:16; Stop 01/03/17 at 13:17; Status DC Propofol 20 ml @ As Directed STK-MED ONCE IV ; Start 01/03/17 at 13:16; Stop at 13:17; Status DC Lidocaine HCl (Lidocaine Pf 2% Vial) 5 ml STK-MED ONCE .ROUTE ; Start 01/03/17 at 13:16; Stop 01/03/17 at 13:17; Status DC Desflurane (Suprane) 60 ml STK-MED ONCE IH ; Start 01/03/17 at 13:16; Stop 01/03 at 13:17; Status DC Midazolam HCl (Versed) 2 mg STK-MED ONCE .ROUTE ; Start 01/03/17 at 13:16; Stop 01/03/17 at 13:17; Status DC Fentanyl Citrate (Fentanyl 2ml Vial) 100 mcg STK-MED ONCE .ROUTE ; Start at 13:16; Stop 01/03/17 at 13:17; Status DC Succinylcholine Chloride (Anectine) 200 mg STK-MED ONCE .ROUTE ; Start 01/03/17 at 13:17; Stop 01/03/17 at 13:18; Status DC Rocuronium [place] (Zemuron) 50 mg STK-MED ONCE .ROUTE ; Start 01/03/17 at 13:17 ; Stop 01/03/17 at 13:18; Status DC Esmolol HCl (Brevibloc) 100 mg STK-MED ONCE IV ; Start 01/03/17 at 15:09; Stop 01/03/17 at 15:10; Status DC Ketorolac Tromethamine (Toradol For Or Only) 30 mg STK-MED ONCE INJ ; Start at 15:09; Stop 01/03/17 at 15:10; Status DC Neostigmine Methylsulfate (Bloxiverz) 10 mg STK-MED ONCE .ROUTE ; Start at 15:54; Stop 01/03/17 at 15:55; Status DC Glycopyrrolate (Robinul) 1 mg STK-MED ONCE .ROUTE ; Start 01/03/17 at 15:55; Stop 01/03/17 at 15:56; Status DC Neostigmine Methylsulfate (Bloxiverz) 10 mg STK-MED ONCE .ROUTE ; Start at 15:57; Stop 01/03/17 at 15:58; Status DC Oxycodone/ Acetaminophen (Percocet 5/325) 2 tab PRN Q4HRS PRN PO PAIN Last administered on 01/04/17 09:35; Start 01/03/17 at 16:30 Metformin HCl (Glucophage) 1,000 mg BIDWMEALS PO ; Start 01/05/17 at 17:00 Info (Do NOT chart on this entry -- for MONITORING) 1 each PRN DAILY PRN MC SEE COMMENTS; Start 01/03/17 at 12:30; Stop 01/05/17 at 12:29 Insulin Aspart (NovoLOG) 0-7 UNITS TIDACHC SQ Last administered on 01/04/17 08 :42; Start 01/03/17 at 21:30 Dextrose (Dextrose 50%-Water Syringe) 12.5 gm PRN Q15MIN PRN IV SEE COMMENTS; Start 01/03/17 at 21:15 Active Scripts Active Reported Nexium Capsule (Esomeprazole Magnesium) 40 Mg Capsule.dr 1 Cap PO PRN PRN Proair Hfa Inhaler (Albuterol Sulfate) 8.5 Gm Hfa.aer.ad 2 Puff INH BID PRN B-12 (Cyanocobalamin (Vitamin B-12)) 1,000 Mcg Tablet.er 1,000 Mcg PO BID Januvia (Sitagliptin Phosphate) 100 Mg Tablet 1 Tab PO DAILY Metformin Hcl 1,000 Mg Tablet 1,000 Mg PO BIDWMEALS Glipizide Er (Glipizide) 2.5 Mg Tab.er.24 1 Tab PO DAILY Atorvastatin Calcium 20 Mg Tablet 20 Mg PO HS Gabapentin 300 Mg Capsule 300 Mg PO TID Vitals/I & O Vital Sign - Last 24 Hours 01/03/17 01/03/17 01/03/17 01/03/17 13:55 14:19 16:15 16:29 Temp 97.4 97.7 97.4 97.7 Pulse 67 86 91 Resp 18 18 20 20 B/P (MAP) 119/71 151/78 140/80 Pulse Ox 99 96 100 100 O2 Delivery Room Air Room Air Simple Mask Simple Mask O2 Flow Rate 10 10 01/03/17 01/03/17 01/03/17 01/03/17 16:44 16:49 16:59 17:00 Temp 97.8 97.8 Pulse 93 92 Resp 20 20 20 B/P (MAP) 135/84 140/71 Pulse Ox 93 92 9 O2 Delivery Room Air Room Air Room Air Room Air 01/03/17 01/03/17 01/03/17 01/03/17 17:15 17:30 17:45 18:00 Temp 98.1 98.1 98.1 98.1 98.1 98.1 Pulse 79 83 87 Resp 20 20 19 20 B/P (MAP) 133/82 (99) 142/83 (102) 137/79 (98) Pulse Ox 96 95 92 O2 Delivery Room Air Room Air Room Air 01/03/17 01/03/17 01/03/17 01/03/17 18:00 18:30 19:00 20:00 Temp 98.1 98.1 98.1 98.1 Pulse 92 89 89 81 Resp 20 19 20 20 B/P (MAP) 131/66 (87) 122/77 (92) 122/68 (86) 137/54 (81) Pulse Ox 91 95 95 94 O2 Delivery Room Air Room Air Room Air 01/03/17 01/03/17 01/03/17 01/03/17 20:00 20:07 21:00 23:00 Temp 98.1 98.1 Pulse 82 69 Resp 20 20 B/P (MAP) 109/70 (83) 118/57 (77) Pulse Ox 95 98 O2 Delivery Room Air Room Air Room Air O2 Flow Rate 10.0 01/03/17 01/04/17 01/04/17 01/04/17 23:45 03:10 03:40 05:17 Pulse Ox 98 98 98 98 O2 Delivery Room Air Room Air Room Air Room Air O2 Flow Rate 10.0 10.0 10.0 10.0 01/04/17 01/04/17 01/04/17 01/04/17 06:17 07:00 08:00 09:35 Temp 97.9 97.9 Pulse 87 Resp 18 20 B/P (MAP) 137/76 (96) Pulse Ox 98 98 O2 Delivery Room Air Room Air Room Air O2 Flow Rate 10.0 01/04/17 11:00 Temp 98.0 98.0 Pulse 88 Resp 18 B/P (MAP) 123/71 (88) Pulse Ox 99 O2 Delivery Room Air Intake and Output 01/03/17 01/03/17 01/04/17 15:00 23:00 07:00 Intake Total 500 ml 1600 ml 350 ml Output Total 25 ml Balance 500 ml 1575 ml 350 ml MICHI BUSTAMANTE K III DO January 04, 2017 11:17
--- NOTE | 2017-01-04 11:33 | PDOC ---
SURGICAL PROGRESS NOTE Subjective pain RUQ, incisions not moving much yet Vital Signs Vital Signs Date Time Temp Pulse Resp B/P (MAP) Pulse Ox O2 Delivery O2 Flow Rate FiO2 01/04/17 11:00 98.0 88 18 123/71 (88) 99 Room Air 98.0 01/04/17 06:17 10.0 I&O Intake and Output 01/04/17 07:00 Intake Total 2450 ml Output Total 25 ml Balance 2425 ml Intake Oral 450 ml IV Total 2000 ml Output Estimated Blood Loss 25 ml # Voids 6 General: Alert, Oriented X3, Cooperative, No acute distress Abdomen: Soft, Other (incisional tenderness, tenderness to RUQ) Labs Laboratory Tests Test 01/02/17 16:08 01/02/17 21:18 01/03/17 11:50 01/03/17 16:43 Glucose (Fingerstick) 120 mg/dL (70-99) 159 mg/dL (70-99) 130 mg/dL (70-99) 174 mg/dL (70-99) Test 01/03/17 17:27 01/03/17 20:12 01/04/17 05:30 Glucose (Fingerstick) 181 mg/dL (70-99) 373 mg/dL (70-99) White Blood Count 18.4 x10^3/uL (4.0-11.0) Red Blood Count 3.84 x10^6/uL (3.50-5.40) Hemoglobin 11.5 g/dL (12.0-15.5) Hematocrit 33.1 % (36.0-47.0) Mean Corpuscular Volume 86 fL (79-100) Mean Corpuscular Hemoglobin 30 pg (25-35) Mean Corpuscular Hemoglobin Concent 35 g/dL (31-37) Red Cell Distribution Width 13.4 % (11.5-14.5) Platelet Count 238 x10^3/uL (140-400) Neutrophils (%) (Auto) 90 % (31-73) Lymphocytes (%) (Auto) 6 % (24-48) Monocytes (%) (Auto) 4 % (0-9) Eosinophils (%) (Auto) 0 % (0-3) Basophils (%) (Auto) 0 % (0-3) Neutrophils # (Auto) 16.5 x10^3uL (1.8-7.7) Lymphocytes # (Auto) 1.1 x10^3/uL (1.0-4.8) Monocytes # (Auto) 0.8 x10^3/uL (0.0-1.1) Eosinophils # (Auto) 0.0 x10^3/uL (0.0-0.7) Basophils # (Auto) 0.1 x10^3/uL (0.0-0.2) Segmented Neutrophils % 86 % (35-66) Band Neutrophils % 2 % (0-9) Lymphocytes % 6 % (24-48) Monocytes % 6 % (0-10) Platelet Estimate Adequate (ADEQUATE) Sodium Level 140 mmol/L (136-145) Potassium Level 4.1 mmol/L (3.5-5.1) Chloride Level 104 mmol/L (98-107) Carbon Dioxide Level 23 mmol/L (21-32) Anion Gap 13 (6-14) Blood Urea Nitrogen 12 mg/dL (7-20) Creatinine 0.8 mg/dL (0.6-1.0) Estimated GFR (Cockcroft-Gault) 91.9 BUN/Creatinine Ratio 15 (6-20) Glucose Level 280 mg/dL (70-99) Calcium Level 9.3 mg/dL (8.5-10.1) Total Bilirubin 0.3 mg/dL (0.2-1.0) Aspartate Amino Transf (AST/SGOT) 22 U/L (15-37) Alanine Aminotransferase (ALT/SGPT) 27 U/L (14-59) Alkaline Phosphatase 102 U/L (46-116) Total Protein 6.2 g/dL (6.4-8.2) Albumin 3.2 g/dL (3.4-5.0) Albumin/Globulin Ratio 1.1 (1.0-1.7) Laboratory Tests Test 01/03/17 11:50 01/03/17 16:43 01/03/17 17:27 01/03/17 20:12 Glucose (Fingerstick) 130 mg/dL (70-99) 174 mg/dL (70-99) 181 mg/dL (70-99) 373 mg/dL (70-99) Test 01/04/17 05:30 White Blood Count 18.4 x10^3/uL (4.0-11.0) Red Blood Count 3.84 x10^6/uL (3.50-5.40) Hemoglobin 11.5 g/dL (12.0-15.5) Hematocrit 33.1 % (36.0-47.0) Mean Corpuscular Volume 86 fL (79-100) Mean Corpuscular Hemoglobin 30 pg (25-35) Mean Corpuscular Hemoglobin Concent 35 g/dL (31-37) Red Cell Distribution Width 13.4 % (11.5-14.5) Platelet Count 238 x10^3/uL (140-400) Neutrophils (%) (Auto) 90 % (31-73) Lymphocytes (%) (Auto) 6 % (24-48) Monocytes (%) (Auto) 4 % (0-9) Eosinophils (%) (Auto) 0 % (0-3) Basophils (%) (Auto) 0 % (0-3) Neutrophils # (Auto) 16.5 x10^3uL (1.8-7.7) Lymphocytes # (Auto) 1.1 x10^3/uL (1.0-4.8) Monocytes # (Auto) 0.8 x10^3/uL (0.0-1.1) Eosinophils # (Auto) 0.0 x10^3/uL (0.0-0.7) Basophils # (Auto) 0.1 x10^3/uL (0.0-0.2) Segmented Neutrophils % 86 % (35-66) Band Neutrophils % 2 % (0-9) Lymphocytes % 6 % (24-48) Monocytes % 6 % (0-10) Platelet Estimate Adequate (ADEQUATE) Sodium Level 140 mmol/L (136-145) Potassium Level 4.1 mmol/L (3.5-5.1) Chloride Level 104 mmol/L (98-107) Carbon Dioxide Level 23 mmol/L (21-32) Anion Gap 13 (6-14) Blood Urea Nitrogen 12 mg/dL (7-20) Creatinine 0.8 mg/dL (0.6-1.0) Estimated GFR (Cockcroft-Gault) 91.9 BUN/Creatinine Ratio 15 (6-20) Glucose Level 280 mg/dL (70-99) Calcium Level 9.3 mg/dL (8.5-10.1) Total Bilirubin 0.3 mg/dL (0.2-1.0) Aspartate Amino Transf (AST/SGOT) 22 U/L (15-37) Alanine Aminotransferase (ALT/SGPT) 27 U/L (14-59) Alkaline Phosphatase 102 U/L (46-116) Total Protein 6.2 g/dL (6.4-8.2) Albumin 3.2 g/dL (3.4-5.0) Albumin/Globulin Ratio 1.1 (1.0-1.7) Problem List s/p lap salud pain control, diet as tolerated ambulate Problems: JANA CRESPO [employer] January 04, 2017 11:33
[2017-01-04] MEDS: NICOTINE 21MG PATCH. TD SCH (14:29)
[2017-01-04 15:00] VITALS: BP 125/77
[2017-01-04 19:53] VITALS: BP 130/88
[2017-01-04] MEDS: ATORVASTATIN CALCIUM 20 MG TABLET PO SCH (21:22)
[2017-01-04 23:49] VITALS: BP 136/84
[2017-01-05] MEDS: oxyCODONE/APAP 5/325 1 TAB TABLET PO PRN ×2 (01:30→08:44)
[2017-01-05 03:44] VITALS: BP 143/83
[2017-01-05] MEDS: KETOROLAC 15 MG/ML VIAL. IV PRN (03:56)
[2017-01-05] MEDS: oxyCODONE IR 5 MG TABLET PO PRN (03:56)
[2017-01-05 04:35] LABS: BASO # 0.1 x10^3/uL (0.0-0.2); BASO % 1 % (0-3); EOS % 3 % (0-3); HEMATOCRIT 32.1 % (36.0-47.0); HEMOGLOBIN 11.4 g/dL (12.0-15.5); LYMPH # 2.7 x10^3/uL (1.0-4.8); LYMPH % 31 % (24-48); MEAN CORPUSCULAR HEMOGLOBIN 30 pg (25-35); MEAN CORPUSCULAR HGB CONC 36 g/dL (31-37); MEAN CORPUSCULAR VOLUME 85 fL (79-100); MONO % 4 % (0-9); NEUT % 62 % (31-73); PLATELET COUNT 237 x10^3/uL (140-400); RED BLOOD COUNT 3.76 x10^6/uL (3.50-5.40); RED CELL DISTRIBUTION WIDTH 13.2 % (11.5-14.5); WHITE BLOOD COUNT 8.7 x10^3/uL (4.0-11.0)
[2017-01-05 04:59] LABS: ALBUMIN/GLOBULIN RATIO 0.9 (1.0-1.7); CALCIUM 8.6 mg/dL (8.5-10.1); CREATININE 0.9 mg/dL (0.6-1.0); GFR 80.2; POTASSIUM 3.6 mmol/L (3.5-5.1); TOTAL BILIRUBIN 0.3 mg/dL (0.2-1.0); TOTAL PROTEIN 6.3 g/dL (6.4-8.2)
[2017-01-05] MEDS ORDERED: PANTOPRAZOLE 40 MG TABLET.DR. PO SCH (07:30)
[2017-01-05 07:50] VITALS: BP 152/87
[2017-01-05] MEDS: ALBUTEROL SULFATE 2.5 MG/3 ML NEBU. NEB PRN (08:18)
[2017-01-05] MEDS: GABAPENTIN 300 MG CAPSULE. PO SCH (08:41)
[2017-01-05] MEDS: glipiZIDE ER 2.5 MG TAB.ER.24 PO SCH (08:41)
[2017-01-05] MEDS: DOCUSATE SODIUM 100 MG CAPSULE. PO SCH (08:41)
[2017-01-05] MEDS: LINAGLIPTIN 5 MG TABLET PO SCH (08:42)
[2017-01-05] MEDS: NICOTINE 21MG PATCH. TD SCH (08:42)
[2017-01-05] MEDS: CYANOCOBALAMIN (VITAMIN B-12) 1,000 MCG TABLET. PO SCH (08:42)
[2017-01-05] MEDS: IV NORMAL SALINE 1000ML BAG 1,000 ML IV SCH (08:43)
[2017-01-05] MEDS: INSULIN ASPART 300 UNITS/3 ML INSULN.PEN SQ SCH (08:52)
--- NOTE | 2017-01-05 09:33 | PDOC ---
PROGRESS NOTES Chief Complaint Chief Complaint Abdominal pain S/p lap salud 01/03/17 Biliary dyskinesia Overweight Leukocytosis, resolved Migraine headaches History of Present Illness History of Present Illness Patient was lying in bed Still having abdominal pain Asking for Ativan prescription for discharge Discussed care with nurse Vitals Vitals Vital Signs Date Time Temp Pulse Resp B/P (MAP) Pulse Ox O2 Delivery O2 Flow Rate FiO2 01/05/17 08:44 18 99 Room Air 01/05/17 07:50 97.7 78 152/87 (108) 97.7 01/05/17 05:42 10.0 Physical Exam General: Alert, Oriented X3, Cooperative, No acute distress Heart: Regular rate, Normal S1, Normal S2 Lungs: Clear, Other (no wheezing) Abdomen: Normal bowel sounds, Soft, Other (incisional tenderness, tenderness to RUQ) Extremities: No clubbing, No cyanosis, No edema, Normal pulses, No tenderness/ swelling Skin: No rashes, No breakdown, No significant lesion, Other (4 healing surgical incision sites) Labs LABS Laboratory Tests Test 01/04/17 11:40 01/04/17 16:41 01/04/17 21:07 01/05/17 03:41 Glucose (Fingerstick) 173 mg/dL (70-99) 106 mg/dL (70-99) 214 mg/dL (70-99) White Blood Count 8.7 x10^3/uL (4.0-11.0) Red Blood Count 3.76 x10^6/uL (3.50-5.40) Hemoglobin 11.4 g/dL (12.0-15.5) Hematocrit 32.1 % (36.0-47.0) Mean Corpuscular Volume 85 fL (79-100) Mean Corpuscular Hemoglobin 30 pg (25-35) Mean Corpuscular Hemoglobin Concent 36 g/dL (31-37) Red Cell Distribution Width 13.2 % (11.5-14.5) Platelet Count 237 x10^3/uL (140-400) Neutrophils (%) (Auto) 62 % (31-73) Lymphocytes (%) (Auto) 31 % (24-48) Monocytes (%) (Auto) 4 % (0-9) Eosinophils (%) (Auto) 3 % (0-3) Basophils (%) (Auto) 1 % (0-3) Neutrophils # (Auto) 5.4 x10^3uL (1.8-7.7) Lymphocytes # (Auto) 2.7 x10^3/uL (1.0-4.8) Monocytes # (Auto) 0.3 x10^3/uL (0.0-1.1) Eosinophils # (Auto) 0.2 x10^3/uL (0.0-0.7) Basophils # (Auto) 0.1 x10^3/uL (0.0-0.2) Sodium Level 145 mmol/L (136-145) Potassium Level 3.6 mmol/L (3.5-5.1) Chloride Level 109 mmol/L (98-107) Carbon Dioxide Level 26 mmol/L (21-32) Anion Gap 10 (6-14) Blood Urea Nitrogen 11 mg/dL (7-20) Creatinine 0.9 mg/dL (0.6-1.0) Estimated GFR (Cockcroft-Gault) 80.2 BUN/Creatinine Ratio 12 (6-20) Glucose Level 153 mg/dL (70-99) Calcium Level 8.6 mg/dL (8.5-10.1) Total Bilirubin 0.3 mg/dL (0.2-1.0) Aspartate Amino Transf (AST/SGOT) 40 U/L (15-37) Alanine Aminotransferase (ALT/SGPT) 43 U/L (14-59) Alkaline Phosphatase 95 U/L (46-116) Total Protein 6.3 g/dL (6.4-8.2) Albumin 3.0 g/dL (3.4-5.0) Albumin/Globulin Ratio 0.9 (1.0-1.7) Test 01/05/17 07:26 Glucose (Fingerstick) 182 mg/dL (70-99) Review of Systems Review of Systems General: denies weakness GI: abdominal pain Assessment and Plan Assessmemt and Plan Assessment: Abdominal pain S/p lap salud 01/03/17 - POD#2 Biliary dyskinesia Overweight Leukocytosis, resolved Migraine headaches Plan: -Discharge ok today if ok with surgery -Ativan 1mg script written -Follow up with surgery in 1 week -Follow up with PCP -Subspecialty input appreciated Problems: Comment Review of Relevant I have reviewed the following items marlo (where applicable) has been applied. Labs Laboratory Tests Test 5/22/17 11:50 01/03/17 16:43 01/03/17 17:27 01/03/17 20:12 Glucose (Fingerstick) 130 mg/dL (70-99) 174 mg/dL (70-99) 181 mg/dL (70-99) 373 mg/dL (70-99) Test 01/04/17 05:30 01/04/17 07:21 01/04/17 11:40 01/04/17 16:41 White Blood Count 18.4 x10^3/uL (4.0-11.0) Red Blood Count 3.84 x10^6/uL (3.50-5.40) Hemoglobin 11.5 g/dL (12.0-15.5) Hematocrit 33.1 % (36.0-47.0) Mean Corpuscular Volume 86 fL (79-100) Mean Corpuscular Hemoglobin 30 pg (25-35) Mean Corpuscular Hemoglobin Concent 35 g/dL (31-37) Red Cell Distribution Width 13.4 % (11.5-14.5) Platelet Count 238 x10^3/uL (140-400) Neutrophils (%) (Auto) 90 % (31-73) Lymphocytes (%) (Auto) 6 % (24-48) Monocytes (%) (Auto) 4 % (0-9) Eosinophils (%) (Auto) 0 % (0-3) Basophils (%) (Auto) 0 % (0-3) Neutrophils # (Auto) 16.5 x10^3uL (1.8-7.7) Lymphocytes # (Auto) 1.1 x10^3/uL (1.0-4.8) Monocytes # (Auto) 0.8 x10^3/uL (0.0-1.1) Eosinophils # (Auto) 0.0 x10^3/uL (0.0-0.7) Basophils # (Auto) 0.1 x10^3/uL (0.0-0.2) Segmented Neutrophils % 86 % (35-66) Band Neutrophils % 2 % (0-9) Lymphocytes % 6 % (24-48) Monocytes % 6 % (0-10) Platelet Estimate Adequate (ADEQUATE) Sodium Level 140 mmol/L (136-145) Potassium Level 4.1 mmol/L (3.5-5.1) Chloride Level 104 mmol/L (98-107) Carbon Dioxide Level 23 mmol/L (21-32) Anion Gap 13 (6-14) Blood Urea Nitrogen 12 mg/dL (7-20) Creatinine 0.8 mg/dL (0.6-1.0) Estimated GFR (Cockcroft-Gault) 91.9 BUN/Creatinine Ratio 15 (6-20) Glucose Level 280 mg/dL (70-99) Calcium Level 9.3 mg/dL (8.5-10.1) Total Bilirubin 0.3 mg/dL (0.2-1.0) Aspartate Amino Transf (AST/SGOT) 22 U/L (15-37) Alanine Aminotransferase (ALT/SGPT) 27 U/L (14-59) Alkaline Phosphatase 102 U/L (46-116) Total Protein 6.2 g/dL (6.4-8.2) Albumin 3.2 g/dL (3.4-5.0) Albumin/Globulin Ratio 1.1 (1.0-1.7) Glucose (Fingerstick) 248 mg/dL (70-99) 173 mg/dL (70-99) 106 mg/dL (70-99) Test 01/04/17 21:07 01/05/17 03:41 01/05/17 07:26 Glucose (Fingerstick) 214 mg/dL (70-99) 182 mg/dL (70-99) White Blood Count 8.7 x10^3/uL (4.0-11.0) Red Blood Count 3.76 x10^6/uL (3.50-5.40) Hemoglobin 11.4 g/dL (12.0-15.5) Hematocrit 32.1 % (36.0-47.0) Mean Corpuscular Volume 85 fL (79-100) Mean Corpuscular Hemoglobin 30 pg (25-35) Mean Corpuscular Hemoglobin Concent 36 g/dL (31-37) Red Cell Distribution Width 13.2 % (11.5-14.5) Platelet Count 237 x10^3/uL (140-400) Neutrophils (%) (Auto) 62 % (31-73) Lymphocytes (%) (Auto) 31 % (24-48) Monocytes (%) (Auto) 4 % (0-9) Eosinophils (%) (Auto) 3 % (0-3) Basophils (%) (Auto) 1 % (0-3) Neutrophils # (Auto) 5.4 x10^3uL (1.8-7.7) Lymphocytes # (Auto) 2.7 x10^3/uL (1.0-4.8) Monocytes # (Auto) 0.3 x10^3/uL (0.0-1.1) Eosinophils # (Auto) 0.2 x10^3/uL (0.0-0.7) Basophils # (Auto) 0.1 x10^3/uL (0.0-0.2) Sodium Level 145 mmol/L (136-145) Potassium Level 3.6 mmol/L (3.5-5.1) Chloride Level 109 mmol/L (98-107) Carbon Dioxide Level 26 mmol/L (21-32) Anion Gap 10 (6-14) Blood Urea Nitrogen 11 mg/dL (7-20) Creatinine 0.9 mg/dL (0.6-1.0) Estimated GFR (Cockcroft-Gault) 80.2 BUN/Creatinine Ratio 12 (6-20) Glucose Level 153 mg/dL (70-99) Calcium Level 8.6 mg/dL (8.5-10.1) Total Bilirubin 0.3 mg/dL (0.2-1.0) Aspartate Amino Transf (AST/SGOT) 40 U/L (15-37) Alanine Aminotransferase (ALT/SGPT) 43 U/L (14-59) Alkaline Phosphatase 95 U/L (46-116) Total Protein 6.3 g/dL (6.4-8.2) Albumin 3.0 g/dL (3.4-5.0) Albumin/Globulin Ratio 0.9 (1.0-1.7) Laboratory Tests Test 01/04/17 11:40 01/04/17 16:41 01/04/17 21:07 01/05/17 03:41 Glucose (Fingerstick) 173 mg/dL (70-99) 106 mg/dL (70-99) 214 mg/dL (70-99) White Blood Count 8.7 x10^3/uL (4.0-11.0) Red Blood Count 3.76 x10^6/uL (3.50-5.40) Hemoglobin 11.4 g/dL (12.0-15.5) Hematocrit 32.1 % (36.0-47.0) Mean Corpuscular Volume 85 fL (79-100) Mean Corpuscular Hemoglobin 30 pg (25-35) Mean Corpuscular Hemoglobin Concent 36 g/dL (31-37) Red Cell Distribution Width 13.2 % (11.5-14.5) Platelet Count 237 x10^3/uL (140-400) Neutrophils (%) (Auto) 62 % (31-73) Lymphocytes (%) (Auto) 31 % (24-48) Monocytes (%) (Auto) 4 % (0-9) Eosinophils (%) (Auto) 3 % (0-3) Basophils (%) (Auto) 1 % (0-3) Neutrophils # (Auto) 5.4 x10^3uL (1.8-7.7) Lymphocytes # (Auto) 2.7 x10^3/uL (1.0-4.8) Monocytes # (Auto) 0.3 x10^3/uL (0.0-1.1) Eosinophils # (Auto) 0.2 x10^3/uL (0.0-0.7) Basophils # (Auto) 0.1 x10^3/uL (0.0-0.2) Sodium Level 145 mmol/L (136-145) Potassium Level 3.6 mmol/L (3.5-5.1) Chloride Level 109 mmol/L (98-107) Carbon Dioxide Level 26 mmol/L (21-32) Anion Gap 10 (6-14) Blood Urea Nitrogen 11 mg/dL (7-20) Creatinine 0.9 mg/dL (0.6-1.0) Estimated GFR (Cockcroft-Gault) 80.2 BUN/Creatinine Ratio 12 (6-20) Glucose Level 153 mg/dL (70-99) Calcium Level 8.6 mg/dL (8.5-10.1) Total Bilirubin 0.3 mg/dL (0.2-1.0) Aspartate Amino Transf (AST/SGOT) 40 U/L (15-37) Alanine Aminotransferase (ALT/SGPT) 43 U/L (14-59) Alkaline Phosphatase 95 U/L (46-116) Total Protein 6.3 g/dL (6.4-8.2) Albumin 3.0 g/dL (3.4-5.0) Albumin/Globulin Ratio 0.9 (1.0-1.7) Test 01/05/17 07:26 Glucose (Fingerstick) 182 mg/dL (70-99) Medications Current Medications Morphine Sulfate 4 mg PRN Q15MIN PRN IV/SQ PAIN GREATER THAN 3/10 Last administered on 12/31/16 14:58; Start 12/31/16 at 11:30; Stop 01/01/17 at 11:29 ; Status DC Sodium Chloride 1,000 ml @ 1,000 mls/hr Q1H IV Last administered on 12/31/16 11:55; Start 12/31/16 at 11:28; Stop 12/31/16 at 12:27; Status DC Ondansetron HCl (Zofran) 4 mg 1X ONCE IV Last administered on 12/31/16 11:56 ; Start 12/31/16 at 11:30; Stop 12/31/16 at 11:31; Status DC Iohexol (Omnipaque 300 Mg/ml) 75 ml 1X ONCE IV Last administered on 12/31/16 11:45; Start 12/31/16 at 11:45; Stop 12/31/16 at 11:46; Status DC Iohexol (Omnipaque 240 Mg/ml) 50 ml 1X ONCE PO Last administered on 12/31/16 11:45; Start 12/31/16 at 11:45; Stop 12/31/16 at 11:46; Status DC Info (Do NOT chart on this entry -- for MONITORING) 1 each PRN DAILY PRN MC SEE COMMENTS; Start 12/31/16 at 11:45; Stop 01/02/17 at 11:44; Status DC Ondansetron HCl (Zofran) 4 mg PRN Q6HRS PRN IV NAUSEA/VOMITING 1ST CHOICE; Start 12/31/16 at 14:45 Prochlorperazine Edisylate (Compazine) 10 mg PRN Q6HRS PRN IV NAUSEA/VOMITING 2ND CHOICE Last administered on 01/02/17 13:34; Start 12/31/16 at 14:45 Prochlorperazine (Compazine) 25 mg PRN Q12HR PRN [place] NAUSEA/VOMITING; Start at 14:45 Morphine Sulfate 2 mg PRN Q2HR PRN IV MODERATE PAIN Last administered on 19:19; Start 12/31/16 at 14:45 Oxycodone HCl (Roxicodone) 5 mg PRN Q4HRS PRN PO MILD PAIN, 1ST CHOICE Last administered on 01/05/17 03:56; Start 12/31/16 at 14:45 Ketorolac Tromethamine (Toradol) 15 mg PRN Q6HRS PRN IV PAIN Last administered on 01/05/17 03:56; Start 12/31/16 at 14:45; Stop 01/05/17 at 14:44 Acetaminophen (Tylenol) 650 mg PRN Q6HRS PRN PO Headaches, Temp > 101.5F Last administered on 01/02/17 07:44; Start 12/31/16 at 14:45 Ibuprofen (Motrin) 400 mg PRN Q6HRS PRN PO MILD PAIN; Start 12/31/16 at 14:45 Docusate Sodium (Colace) 100 mg BID PO Last administered on 01/05/17 08:41; Start 12/31/16 at 21:00 Magnesium Hydroxide (Milk Of Magnesia) 2,400 mg PRN Q12HR PRN PO CONSTIPATION 1ST CHOICE; Start 12/31/16 at 14:45 Lactulose 20 gm PRN Q12HR PRN PO CONSTIPATION 2ND CHOICE; Start 12/31/16 at 14: 45 Bisacodyl (Dulcolax Supp) 10 mg PRN DAILY PRN [place] CONSTIPATION; Start 12/31/16 at 14:45 Ondansetron HCl (Zofran) 4 mg PRN Q8HRS PRN IV NAUSEA/VOMITING; Start 12/31/16 at 15:45; Stop 12/31/16 at 15:48; Status DC Morphine Sulfate 4 mg PRN Q2HR PRN IV PAIN Last administered on 01/01/17 12:48 ; Start 12/31/16 at 15:45; Stop 01/01/17 at 15:44; Status DC Sodium Chloride 1,000 ml @ 75 mls/hr [id number] IV Last administered on 16:18; Start 01/01/17 at 12:30 Pantoprazole Sodium (Protonix Vial) 40 mg DAILYAC IVP Last administered on 01/04 08:29; Start 01/01/17 at 12:45; Stop 01/04/17 at 12:57; Status DC Sodium Chloride 1,000 ml @ 1,000 mls/hr 1X ONCE IV Last administered on 15:42; Start 01/01/17 at 15:00; Stop 01/01/17 at 15:59; Status DC Atorvastatin Calcium (Lipitor) 20 mg HS PO Last administered on 01/04/17 21:22 ; Start 01/01/17 at 21:00 Glipizide (Glucotrol Er) 2.5 mg DAILY PO Last administered on 01/05/17 08:41; Start 01/02/17 at 09:00 Metformin HCl (Glucophage) 1,000 mg BIDWMEALS PO ; Start 01/02/17 at 17:00; Stop 01/03/17 at 19:52; Status DC Non-Formulary Medication 2 puff BID PRN INH SHORTNESS OF BREATH; Start at 20:45; Status UNV Cyanocobalamin (Vitamin B-12) 1,000 mcg BID PO Last administered on 01/05/17 08:42; Start 01/01/17 at 21:00 Non-Formulary Medication 1 cap PRN PRN PO DYSPEPSIA; Start 01/01/17 at 20:45; Status UNV Gabapentin (Neurontin) 300 mg TID PO Last administered on 01/05/17 08:41; Start 01/01/17 at 21:00 Linagliptin (Tradjenta) 5 mg DAILY PO Last administered on 01/05/17 08:42; Start 01/02/17 at 09:00 Albuterol Sulfate (Ventolin Neb Soln) 2.5 mg PRN BID PRN NEB SHORTNESS OF BREATH Last administered on 01/05/17 08:18; Start 01/01/17 at 20:45 Sumatriptan Succinate (Imitrex) 25 mg PRN Q2HR PRN PO MIGRAINE HEADACHE Last administered on 01/02/17 21:12; Start 01/02/17 at 09:30 Sumatriptan Succinate (Imitrex) 50 mg 1X ONCE PO Last administered on 10:40; Start 01/02/17 at 09:30; Stop 01/02/17 at 09:31; Status DC Fentanyl Citrate (Fentanyl 2ml Vial) 50 mcg PRN Q2HR PRN IV SEVERE PAIN Last administered on 01/04/17 11:57; Start 01/02/17 at 22:45 Sincalide 1.56 mcg/Sodium Chloride 30 ml @ 120 mls/hr 1X ONCE IV Last administered on 01/03/17 08:55; Start 01/03/17 at 07:30; Stop 01/03/17 at 07:44 ; Status DC Lorazepam (Ativan) 1 mg PRN Q6HRS PRN IV ANXIETY / AGITATION Last administered on 01/05/17 04:02; Start 01/03/17 at 08:45 Ondansetron HCl (Zofran) 4 mg PRN Q6HRS PRN IV NAUSEA/VOMITING; Start 01/03/17 at 11:45; Stop 01/03/17 at 18:00; Status DC Fentanyl Citrate (Fentanyl 2ml Vial) 25 mcg PRN Q5MIN PRN IV MILD PAIN; Start 01/03/17 at 11:45; Stop 01/03/17 at 18:00; Status DC Fentanyl Citrate (Fentanyl 2ml Vial) 50 mcg PRN Q5MIN PRN IV MODERATE PAIN; Start 01/03/17 at 11:45; Stop 01/03/17 at 18:00; Status DC Morphine Sulfate 1 mg PRN Q10MIN PRN IV SEVERE PAIN; Start 01/03/17 at 11:45; Stop 01/03/17 at 18:00; Status DC Ringer's Solution 1,000 ml @ 30 mls/hr Q24H IV ; Start 01/03/17 at 11:35; Stop 01/03/17 at 23:34; Status DC Lidocaine HCl 2 ml PRN 1X PRN ID PRIOR TO IV START; Start 01/03/17 at 11:45; Stop 01/03/17 at 18:00; Status DC Hydromorphone HCl (Dilaudid) 0.5 mg PRN Q10MIN PRN IV SEV PAIN, Second choice; Start 01/03/17 at 11:45; Stop 01/03/17 at 18:00; Status DC Prochlorperazine Edisylate (Compazine) 5 mg PACU PRN PRN IV NAUSEA, MRX1; Start 01/03/17 at 11:45; Stop 01/03/17 at 18:00; Status DC Cefazolin Sodium/ Dextrose 50 ml @ 100 mls/hr 1X PREOP PRN IV media relations director to OR Last administered on 01/03/17 15:00; Start 01/03/17 at 12:15; Stop 01/04/17 at 18:00; Status DC Cellulose 1 each STK-MED ONCE .ROUTE ; Start 01/03/17 at 12:34; Stop 01/03/17 at 12:35; Status DC Bupivacaine HCl/ Epinephrine Bitart (Sensorcain-Mpf Epi 0.5%-[id number]) 30 ml STK -MED ONCE .ROUTE Last administered on 01/03/17 15:13; Start 01/03/17 at 12:34 ; Stop 01/03/17 at 12:35; Status DC Iohexol (Omnipaque 300 Mg/ml) 50 ml STK-MED ONCE .ROUTE Last administered on 15:40; Start 01/03/17 at 12:34; Stop 01/03/17 at 12:35; Status DC Dexamethasone Sodium Phosphate (Decadron) 20 mg STK-MED ONCE .ROUTE ; Start at 13:16; Stop 01/03/17 at 13:17; Status DC Ondansetron HCl (Zofran) 4 mg STK-MED ONCE .ROUTE ; Start 01/03/17 at 13:16; Stop 01/03/17 at 13:17; Status DC Propofol 20 ml @ As Directed STK-MED ONCE IV ; Start 01/03/17 at 13:16; Stop at 13:17; Status DC Lidocaine HCl (Lidocaine Pf 2% Vial) 5 ml STK-MED ONCE .ROUTE ; Start 01/03/17 at 13:16; Stop 01/03/17 at 13:17; Status DC Desflurane (Suprane) 60 ml STK-MED ONCE IH ; Start 01/03/17 at 13:16; Stop 01/03 at 13:17; Status DC Midazolam HCl (Versed) 2 mg STK-MED ONCE .ROUTE ; Start 01/03/17 at 13:16; Stop 01/03/17 at 13:17; Status DC Fentanyl Citrate (Fentanyl 2ml Vial) 100 mcg STK-MED ONCE .ROUTE ; Start at 13:16; Stop 01/03/17 at 13:17; Status DC Succinylcholine Chloride (Anectine) 200 mg STK-MED ONCE .ROUTE ; Start 01/03/17 at 13:17; Stop 01/03/17 at 13:18; Status DC Rocuronium [place] (Zemuron) 50 mg STK-MED ONCE .ROUTE ; Start 01/03/17 at 13:17 ; Stop 01/03/17 at 13:18; Status DC Esmolol HCl (Brevibloc) 100 mg STK-MED ONCE IV ; Start 01/03/17 at 15:09; Stop 01/03/17 at 15:10; Status DC Ketorolac Tromethamine (Toradol For Or Only) 30 mg STK-MED ONCE INJ ; Start at 15:09; Stop 01/03/17 at 15:10; Status DC Neostigmine Methylsulfate (Bloxiverz) 10 mg STK-MED ONCE .ROUTE ; Start at 15:54; Stop 01/03/17 at 15:55; Status DC Glycopyrrolate (Robinul) 1 mg STK-MED ONCE .ROUTE ; Start 01/03/17 at 15:55; Stop 01/03/17 at 15:56; Status DC Neostigmine Methylsulfate (Bloxiverz) 10 mg STK-MED ONCE .ROUTE ; Start at 15:57; Stop 01/03/17 at 15:58; Status DC Oxycodone/ Acetaminophen (Percocet 5/325) 2 tab PRN Q4HRS PRN PO PAIN Last administered on 01/05/17 08:44; Start 01/03/17 at 16:30 Metformin HCl (Glucophage) 1,000 mg BIDWMEALS PO ; Start 01/05/17 at 17:00 Info (Do NOT chart on this entry -- for MONITORING) 1 each PRN DAILY PRN MC SEE COMMENTS; Start 01/03/17 at 12:30; Stop 01/05/17 at 12:29 Insulin Aspart (NovoLOG) 0-7 UNITS TIDACHC SQ Last administered on 01/05/17 08 :52; Start 01/03/17 at 21:30 Dextrose (Dextrose 50%-Water Syringe) 12.5 gm PRN Q15MIN PRN IV SEE COMMENTS; Start 01/03/17 at 21:15 Pantoprazole Sodium (Protonix) 40 mg DAILYAC PO Last administered on 01/05/17 08:41; Start 01/05/17 at 07:30 Nicotine (Nicoderm Cq 21mg) 1 patch DAILY TD Last administered on 01/05/17 08: 42; Start 01/04/17 at 14:15 Active Scripts Active Reported Nexium Capsule (Esomeprazole Magnesium) 40 Mg Capsule.dr 1 Cap PO PRN PRN Proair Hfa Inhaler (Albuterol Sulfate) 8.5 Gm Hfa.aer.ad 2 Puff INH BID PRN B-12 (Cyanocobalamin (Vitamin B-12)) 1,000 Mcg Tablet.er 1,000 Mcg PO BID Januvia (Sitagliptin Phosphate) 100 Mg Tablet 1 Tab PO DAILY Metformin Hcl 1,000 Mg Tablet 1,000 Mg PO BIDWMEALS Glipizide Er (Glipizide) 2.5 Mg Tab.er.24 1 Tab PO DAILY Atorvastatin Calcium 20 Mg Tablet 20 Mg PO HS Gabapentin 300 Mg Capsule 300 Mg PO TID Vitals/I & O Vital Sign - Last 24 Hours 01/04/17 01/04/17 01/04/17 01/04/17 09:35 11:00 11:57 12:27 Temp 98.0 98.0 Pulse 88 Resp 20 18 18 20 B/P (MAP) 123/71 (88) Pulse Ox 99 99 95 O2 Delivery Room Air Room Air Room Air 01/04/17 01/04/17 01/04/17 01/04/17 14:40 15:00 19:53 20:00 Temp 95.7 98.3 95.7 98.3 Pulse 89 90 Resp 20 18 18 B/P (MAP) 125/77 (93) 130/88 (102) Pulse Ox 100 95 O2 Delivery Room Air Room Air Room Air Room Air O2 Flow Rate 10.0 01/04/17 01/04/17 01/04/17 01/05/17 20:16 21:31 23:49 01:30 Temp 98.2 98.2 Pulse 80 Resp 20 20 18 18 B/P (MAP) 136/84 (101) Pulse Ox 95 97 97 O2 Delivery Room Air Room Air Room Air O2 Flow Rate 10.0 10.0 01/05/17 01/05/17 01/05/17 01/05/17 03:10 03:44 03:56 05:42 Temp 98.1 98.1 Pulse 88 Resp 18 B/P (MAP) 143/83 (103) Pulse Ox 97 97 97 97 O2 Delivery Room Air Room Air Room Air Room Air O2 Flow Rate 10.0 10.0 10.0 01/05/17 01/05/17 01/05/17 07:50 08:20 08:44 Temp 97.7 97.7 Pulse 78 Resp 18 B/P (MAP) 152/87 (108) Pulse Ox 99 100 99 O2 Delivery Room Air Room Air Room Air Intake and Output 01/04/17 01/04/17 01/05/17 15:00 23:00 07:00 Intake Total 875 ml 0 ml Balance 875 ml 0 ml MICHI BUSTAMANTE III DO January 05, 2017 09:33
[2017-01-05] MEDS: MORPHINE SULFATE 2 MG/ML DISP.SYRIN. IV PRN (10:15)
--- NOTE | 2017-01-05 10:16 | PDOC ---
G I PROGRESS NOTE Subjective Planning to go home. Still some RUQ pain, but better and historically c/w incisional pain. Physical Exam Benign. Review of Relevant I have reviewed the following items marlo (where applicable) has been applied. Labs Laboratory Tests Test 01/03/17 11:50 01/03/17 16:43 01/03/17 17:27 01/03/17 20:12 Glucose (Fingerstick) 130 mg/dL (70-99) 174 mg/dL (70-99) 181 mg/dL (70-99) 373 mg/dL (70-99) Test 01/04/17 05:30 01/04/17 07:21 01/04/17 11:40 01/04/17 16:41 White Blood Count 18.4 x10^3/uL (4.0-11.0) Red Blood Count 3.84 x10^6/uL (3.50-5.40) Hemoglobin 11.5 g/dL (12.0-15.5) Hematocrit 33.1 % (36.0-47.0) Mean Corpuscular Volume 86 fL (79-100) Mean Corpuscular Hemoglobin 30 pg (25-35) Mean Corpuscular Hemoglobin Concent 35 g/dL (31-37) Red Cell Distribution Width 13.4 % (11.5-14.5) Platelet Count 238 x10^3/uL (140-400) Neutrophils (%) (Auto) 90 % (31-73) Lymphocytes (%) (Auto) 6 % (24-48) Monocytes (%) (Auto) 4 % (0-9) Eosinophils (%) (Auto) 0 % (0-3) Basophils (%) (Auto) 0 % (0-3) Neutrophils # (Auto) 16.5 x10^3uL (1.8-7.7) Lymphocytes # (Auto) 1.1 x10^3/uL (1.0-4.8) Monocytes # (Auto) 0.8 x10^3/uL (0.0-1.1) Eosinophils # (Auto) 0.0 x10^3/uL (0.0-0.7) Basophils # (Auto) 0.1 x10^3/uL (0.0-0.2) Segmented Neutrophils % 86 % (35-66) Band Neutrophils % 2 % (0-9) Lymphocytes % 6 % (24-48) Monocytes % 6 % (0-10) Platelet Estimate Adequate (ADEQUATE) Sodium Level 140 mmol/L (136-145) Potassium Level 4.1 mmol/L (3.5-5.1) Chloride Level 104 mmol/L (98-107) Carbon Dioxide Level 23 mmol/L (21-32) Anion Gap 13 (6-14) Blood Urea Nitrogen 12 mg/dL (7-20) Creatinine 0.8 mg/dL (0.6-1.0) Estimated GFR (Cockcroft-Gault) 91.9 BUN/Creatinine Ratio 15 (6-20) Glucose Level 280 mg/dL (70-99) Calcium Level 9.3 mg/dL (8.5-10.1) Total Bilirubin 0.3 mg/dL (0.2-1.0) Aspartate Amino Transf (AST/SGOT) 22 U/L (15-37) Alanine Aminotransferase (ALT/SGPT) 27 U/L (14-59) Alkaline Phosphatase 102 U/L (46-116) Total Protein 6.2 g/dL (6.4-8.2) Albumin 3.2 g/dL (3.4-5.0) Albumin/Globulin Ratio 1.1 (1.0-1.7) Glucose (Fingerstick) 248 mg/dL (70-99) 173 mg/dL (70-99) 106 mg/dL (70-99) Test 01/04/17 21:07 01/05/17 03:41 01/05/17 07:26 Glucose (Fingerstick) 214 mg/dL (70-99) 182 mg/dL (70-99) White Blood Count 8.7 x10^3/uL (4.0-11.0) Red Blood Count 3.76 x10^6/uL (3.50-5.40) Hemoglobin 11.4 g/dL (12.0-15.5) Hematocrit 32.1 % (36.0-47.0) Mean Corpuscular Volume 85 fL (79-100) Mean Corpuscular Hemoglobin 30 pg (25-35) Mean Corpuscular Hemoglobin Concent 36 g/dL (31-37) Red Cell Distribution Width 13.2 % (11.5-14.5) Platelet Count 237 x10^3/uL (140-400) Neutrophils (%) (Auto) 62 % (31-73) Lymphocytes (%) (Auto) 31 % (24-48) Monocytes (%) (Auto) 4 % (0-9) Eosinophils (%) (Auto) 3 % (0-3) Basophils (%) (Auto) 1 % (0-3) Neutrophils # (Auto) 5.4 x10^3uL (1.8-7.7) Lymphocytes # (Auto) 2.7 x10^3/uL (1.0-4.8) Monocytes # (Auto) 0.3 x10^3/uL (0.0-1.1) Eosinophils # (Auto) 0.2 x10^3/uL (0.0-0.7) Basophils # (Auto) 0.1 x10^3/uL (0.0-0.2) Sodium Level 145 mmol/L (136-145) Potassium Level 3.6 mmol/L (3.5-5.1) Chloride Level 109 mmol/L (98-107) Carbon Dioxide Level 26 mmol/L (21-32) Anion Gap 10 (6-14) Blood Urea Nitrogen 11 mg/dL (7-20) Creatinine 0.9 mg/dL (0.6-1.0) Estimated GFR (Cockcroft-Gault) 80.2 BUN/Creatinine Ratio 12 (6-20) Glucose Level 153 mg/dL (70-99) Calcium Level 8.6 mg/dL (8.5-10.1) Total Bilirubin 0.3 mg/dL (0.2-1.0) Aspartate Amino Transf (AST/SGOT) 40 U/L (15-37) Alanine Aminotransferase (ALT/SGPT) 43 U/L (14-59) Alkaline Phosphatase 95 U/L (46-116) Total Protein 6.3 g/dL (6.4-8.2) Albumin 3.0 g/dL (3.4-5.0) Albumin/Globulin Ratio 0.9 (1.0-1.7) Laboratory Tests Test 01/04/17 11:40 01/04/17 16:41 01/04/17 21:07 01/05/17 03:41 Glucose (Fingerstick) 173 mg/dL (70-99) 106 mg/dL (70-99) 214 mg/dL (70-99) White Blood Count 8.7 x10^3/uL (4.0-11.0) Red Blood Count 3.76 x10^6/uL (3.50-5.40) Hemoglobin 11.4 g/dL (12.0-15.5) Hematocrit 32.1 % (36.0-47.0) Mean Corpuscular Volume 85 fL (79-100) Mean Corpuscular Hemoglobin 30 pg (25-35) Mean Corpuscular Hemoglobin Concent 36 g/dL (31-37) Red Cell Distribution Width 13.2 % (11.5-14.5) Platelet Count 237 x10^3/uL (140-400) Neutrophils (%) (Auto) 62 % (31-73) Lymphocytes (%) (Auto) 31 % (24-48) Monocytes (%) (Auto) 4 % (0-9) Eosinophils (%) (Auto) 3 % (0-3) Basophils (%) (Auto) 1 % (0-3) Neutrophils # (Auto) 5.4 x10^3uL (1.8-7.7) Lymphocytes # (Auto) 2.7 x10^3/uL (1.0-4.8) Monocytes # (Auto) 0.3 x10^3/uL (0.0-1.1) Eosinophils # (Auto) 0.2 x10^3/uL (0.0-0.7) Basophils # (Auto) 0.1 x10^3/uL (0.0-0.2) Sodium Level 145 mmol/L (136-145) Potassium Level 3.6 mmol/L (3.5-5.1) Chloride Level 109 mmol/L (98-107) Carbon Dioxide Level 26 mmol/L (21-32) Anion Gap 10 (6-14) Blood Urea Nitrogen 11 mg/dL (7-20) Creatinine 0.9 mg/dL (0.6-1.0) Estimated GFR (Cockcroft-Gault) 80.2 BUN/Creatinine Ratio 12 (6-20) Glucose Level 153 mg/dL (70-99) Calcium Level 8.6 mg/dL (8.5-10.1) Total Bilirubin 0.3 mg/dL (0.2-1.0) Aspartate Amino Transf (AST/SGOT) 40 U/L (15-37) Alanine Aminotransferase (ALT/SGPT) 43 U/L (14-59) Alkaline Phosphatase 95 U/L (46-116) Total Protein 6.3 g/dL (6.4-8.2) Albumin 3.0 g/dL (3.4-5.0) Albumin/Globulin Ratio 0.9 (1.0-1.7) Test 01/05/17 07:26 Glucose (Fingerstick) 182 mg/dL (70-99) Medications Current Medications Morphine Sulfate 4 mg PRN Q15MIN PRN IV/SQ PAIN GREATER THAN 3/10 Last administered on 12/31/16 14:58; Start 12/31/16 at 11:30; Stop 01/01/17 at 11:29 ; Status DC Sodium Chloride 1,000 ml @ 1,000 mls/hr Q1H IV Last administered on 12/31/16 11:55; Start 12/31/16 at 11:28; Stop 12/31/16 at 12:27; Status DC Ondansetron HCl (Zofran) 4 mg 1X ONCE IV Last administered on 12/31/16 11:56 ; Start 12/31/16 at 11:30; Stop 12/31/16 at 11:31; Status DC Iohexol (Omnipaque 300 Mg/ml) 75 ml 1X ONCE IV Last administered on 12/31/16 11:45; Start 12/31/16 at 11:45; Stop 12/31/16 at 11:46; Status DC Iohexol (Omnipaque 240 Mg/ml) 50 ml 1X ONCE PO Last administered on 12/31/16 11:45; Start 12/31/16 at 11:45; Stop 12/31/16 at 11:46; Status DC Info (Do NOT chart on this entry -- for MONITORING) 1 each PRN DAILY PRN MC SEE COMMENTS; Start 12/31/16 at 11:45; Stop 01/02/17 at 11:44; Status DC Ondansetron HCl (Zofran) 4 mg PRN Q6HRS PRN IV NAUSEA/VOMITING 1ST CHOICE; Start 12/31/16 at 14:45 Prochlorperazine Edisylate (Compazine) 10 mg PRN Q6HRS PRN IV NAUSEA/VOMITING 2ND CHOICE Last administered on 01/02/17 13:34; Start 12/31/16 at 14:45 Prochlorperazine (Compazine) 25 mg PRN Q12HR PRN MN NAUSEA/VOMITING; Start at 14:45 Morphine Sulfate 2 mg PRN Q2HR PRN IV MODERATE PAIN Last administered on 19:19; Start 12/31/16 at 14:45 Oxycodone HCl (Roxicodone) 5 mg PRN Q4HRS PRN PO MILD PAIN, 1ST CHOICE Last administered on 01/05/17 03:56; Start 12/31/16 at 14:45 Ketorolac Tromethamine (Toradol) 15 mg PRN Q6HRS PRN IV PAIN Last administered on 01/05/17 03:56; Start 12/31/16 at 14:45; Stop 01/05/17 at 14:44 Acetaminophen (Tylenol) 650 mg PRN Q6HRS PRN PO Headaches, Temp > 101.5F Last administered on 01/02/17 07:44; Start 12/31/16 at 14:45 Ibuprofen (Motrin) 400 mg PRN Q6HRS PRN PO MILD PAIN; Start 12/31/16 at 14:45 Docusate Sodium (Colace) 100 mg BID PO Last administered on 01/05/17 08:41; Start 12/31/16 at 21:00 Magnesium Hydroxide (Milk Of Magnesia) 2,400 mg PRN Q12HR PRN PO CONSTIPATION 1ST CHOICE; Start 12/31/16 at 14:45 Lactulose 20 gm PRN Q12HR PRN PO CONSTIPATION 2ND CHOICE; Start 12/31/16 at 14: 45 Bisacodyl (Dulcolax Supp) 10 mg PRN DAILY PRN MN CONSTIPATION; Start 12/31/16 at 14:45 Ondansetron HCl (Zofran) 4 mg PRN Q8HRS PRN IV NAUSEA/VOMITING; Start 12/31/16 at 15:45; Stop 12/31/16 at 15:48; Status DC Morphine Sulfate 4 mg PRN Q2HR PRN IV PAIN Last administered on 01/01/17 12:48 ; Start 12/31/16 at 15:45; Stop 01/01/17 at 15:44; Status DC Sodium Chloride 1,000 ml @ 75 mls/hr [id number] IV Last administered on 16:18; Start 01/01/17 at 12:30 Pantoprazole Sodium (Protonix Vial) 40 mg DAILYAC IVP Last administered on 01/04 08:29; Start 01/01/17 at 12:45; Stop 01/04/17 at 12:57; Status DC Sodium Chloride 1,000 ml @ 1,000 mls/hr 1X ONCE IV Last administered on 15:42; Start 01/01/17 at 15:00; Stop 01/01/17 at 15:59; Status DC Atorvastatin Calcium (Lipitor) 20 mg HS PO Last administered on 01/04/17 21:22 ; Start 01/01/17 at 21:00 Glipizide (Glucotrol Er) 2.5 mg DAILY PO Last administered on 01/05/17 08:41; Start 01/02/17 at 09:00 Metformin HCl (Glucophage) 1,000 mg BIDWMEALS PO ; Start 01/02/17 at 17:00; Stop 01/03/17 at 19:52; Status DC Non-Formulary Medication 2 puff BID PRN INH SHORTNESS OF BREATH; Start at 20:45; Status UNV Cyanocobalamin (Vitamin B-12) 1,000 mcg BID PO Last administered on 01/05/17 08:42; Start 01/01/17 at 21:00 Non-Formulary Medication 1 cap PRN PRN PO DYSPEPSIA; Start 01/01/17 at 20:45; Status UNV Gabapentin (Neurontin) 300 mg TID PO Last administered on 01/05/17 08:41; Start 01/01/17 at 21:00 Linagliptin (Tradjenta) 5 mg DAILY PO Last administered on 01/05/17 08:42; Start 01/02/17 at 09:00 Albuterol Sulfate (Ventolin Neb Soln) 2.5 mg PRN BID PRN NEB SHORTNESS OF BREATH Last administered on 01/05/17 08:18; Start 01/01/17 at 20:45 Sumatriptan Succinate (Imitrex) 25 mg PRN Q2HR PRN PO MIGRAINE HEADACHE Last administered on 01/02/17 21:12; Start 01/02/17 at 09:30 Sumatriptan Succinate (Imitrex) 50 mg 1X ONCE PO Last administered on 10:40; Start 01/02/17 at 09:30; Stop 01/02/17 at 09:31; Status DC Fentanyl Citrate (Fentanyl 2ml Vial) 50 mcg PRN Q2HR PRN IV SEVERE PAIN Last administered on 01/04/17 11:57; Start 01/02/17 at 22:45 Sincalide 1.56 mcg/Sodium Chloride 30 ml @ 120 mls/hr 1X ONCE IV Last administered on 01/03/17 08:55; Start 01/03/17 at 07:30; Stop 01/03/17 at 07:44 ; Status DC Lorazepam (Ativan) 1 mg PRN Q6HRS PRN IV ANXIETY / AGITATION Last administered on 01/05/17 04:02; Start 01/03/17 at 08:45 Ondansetron HCl (Zofran) 4 mg PRN Q6HRS PRN IV NAUSEA/VOMITING; Start 01/03/17 at 11:45; Stop 01/03/17 at 18:00; Status DC Fentanyl Citrate (Fentanyl 2ml Vial) 25 mcg PRN Q5MIN PRN IV MILD PAIN; Start 01/03/17 at 11:45; Stop 01/03/17 at 18:00; Status DC Fentanyl Citrate (Fentanyl 2ml Vial) 50 mcg PRN Q5MIN PRN IV MODERATE PAIN; Start 01/03/17 at 11:45; Stop 01/03/17 at 18:00; Status DC Morphine Sulfate 1 mg PRN Q10MIN PRN IV SEVERE PAIN; Start 01/03/17 at 11:45; Stop 01/03/17 at 18:00; Status DC Ringer's Solution 1,000 ml @ 30 mls/hr Q24H IV ; Start 01/03/17 at 11:35; Stop 01/03/17 at 23:34; Status DC Lidocaine HCl 2 ml PRN 1X PRN ID PRIOR TO IV START; Start 01/03/17 at 11:45; Stop 01/03/17 at 18:00; Status DC Hydromorphone HCl (Dilaudid) 0.5 mg PRN Q10MIN PRN IV SEV PAIN, Second choice; Start 01/03/17 at 11:45; Stop 01/03/17 at 18:00; Status DC Prochlorperazine Edisylate (Compazine) 5 mg PACU PRN PRN IV NAUSEA, MRX1; Start 01/03/17 at 11:45; Stop 01/03/17 at 18:00; Status DC Cefazolin Sodium/ Dextrose 50 ml @ 100 mls/hr 1X PREOP PRN IV oncology specialist to OR Last administered on 01/03/17 15:00; Start 01/03/17 at 12:15; Stop 01/04/17 at 18:00; Status DC Cellulose 1 each STK-MED ONCE .ROUTE ; Start 01/03/17 at 12:34; Stop 01/03/17 at 12:35; Status DC Bupivacaine HCl/ Epinephrine Bitart (Sensorcain-Mpf Epi 0.5%-1:[id number]) 30 ml STK -MED ONCE .ROUTE Last administered on 01/03/17 15:13; Start 01/03/17 at 12:34 ; Stop 01/03/17 at 12:35; Status DC Iohexol (Omnipaque 300 Mg/ml) 50 ml STK-MED ONCE .ROUTE Last administered on 15:40; Start 01/03/17 at 12:34; Stop 01/03/17 at 12:35; Status DC Dexamethasone Sodium Phosphate (Decadron) 20 mg STK-MED ONCE .ROUTE ; Start at 13:16; Stop 01/03/17 at 13:17; Status DC Ondansetron HCl (Zofran) 4 mg STK-MED ONCE .ROUTE ; Start 01/03/17 at 13:16; Stop 01/03/17 at 13:17; Status DC Propofol 20 ml @ As Directed STK-MED ONCE IV ; Start 01/03/17 at 13:16; Stop at 13:17; Status DC Lidocaine HCl (Lidocaine Pf 2% Vial) 5 ml STK-MED ONCE .ROUTE ; Start 01/03/17 at 13:16; Stop 01/03/17 at 13:17; Status DC Desflurane (Suprane) 60 ml STK-MED ONCE IH ; Start 01/03/17 at 13:16; Stop 01/03 at 13:17; Status DC Midazolam HCl (Versed) 2 mg STK-MED ONCE .ROUTE ; Start 01/03/17 at 13:16; Stop 01/03/17 at 13:17; Status DC Fentanyl Citrate (Fentanyl 2ml Vial) 100 mcg STK-MED ONCE .ROUTE ; Start at 13:16; Stop 01/03/17 at 13:17; Status DC Succinylcholine Chloride (Anectine) 200 mg STK-MED ONCE .ROUTE ; Start 01/03/17 at 13:17; Stop 01/03/17 at 13:18; Status DC Rocuronium [place] (Zemuron) 50 mg STK-MED ONCE .ROUTE ; Start 01/03/17 at 13:17 ; Stop 01/03/17 at 13:18; Status DC Esmolol HCl (Brevibloc) 100 mg STK-MED ONCE IV ; Start 01/03/17 at 15:09; Stop 01/03/17 at 15:10; Status DC Ketorolac Tromethamine (Toradol For Or Only) 30 mg STK-MED ONCE INJ ; Start at 15:09; Stop 01/03/17 at 15:10; Status DC Neostigmine Methylsulfate (Bloxiverz) 10 mg STK-MED ONCE .ROUTE ; Start at 15:54; Stop 01/03/17 at 15:55; Status DC Glycopyrrolate (Robinul) 1 mg STK-MED ONCE .ROUTE ; Start 01/03/17 at 15:55; Stop 01/03/17 at 15:56; Status DC Neostigmine Methylsulfate (Bloxiverz) 10 mg STK-MED ONCE .ROUTE ; Start at 15:57; Stop 01/03/17 at 15:58; Status DC Oxycodone/ Acetaminophen (Percocet 5/325) 2 tab PRN Q4HRS PRN PO PAIN Last administered on 01/05/17t 08:44; Start 01/03/17 at 16:30 Metformin HCl (Glucophage) 1,000 mg BIDWMEALS PO ; Start 01/05/17 at 17:00 Info (Do NOT chart on this entry -- for MONITORING) 1 each PRN DAILY PRN MC SEE COMMENTS; Start 01/03/17 at 12:30; Stop 01/05/17 at 12:29 Insulin Aspart (NovoLOG) 0-7 UNITS TIDACHC SQ Last administered on 01/05/17 08 :52; Start 01/03/17 at 21:30 Dextrose (Dextrose 50%-Water Syringe) 12.5 gm PRN Q15MIN PRN IV SEE COMMENTS; Start 01/03/17 at 21:15 Pantoprazole Sodium (Protonix) 40 mg DAILYAC PO Last administered on 01/05/17 08:41; Start 01/05/17 at 07:30 Nicotine (Nicoderm Cq 21mg) 1 patch DAILY TD Last administered on 01/05/17 08: 42; Start 01/04/17 at 14:15 Active Scripts Active Reported Nexium Capsule (Esomeprazole Magnesium) 40 Mg Capsule.dr 1 Cap PO PRN PRN Proair Hfa Inhaler (Albuterol Sulfate) 8.5 Gm Hfa.aer.ad 2 Puff INH BID PRN B-12 (Cyanocobalamin (Vitamin B-12)) 1,000 Mcg Tablet.er 1,000 Mcg PO BID Januvia (Sitagliptin Phosphate) 100 Mg Tablet 1 Tab PO DAILY Metformin Hcl 1,000 Mg Tablet 1,000 Mg PO BIDWMEALS Glipizide Er (Glipizide) 2.5 Mg Tab.er.24 1 Tab PO DAILY Atorvastatin Calcium 20 Mg Tablet 20 Mg PO HS Gabapentin 300 Mg Capsule 300 Mg PO TID Vitals/I & O Vital Sign - Last 24 Hours 01/04/17 01/04/17 01/04/17 01/04/17 11:00 11:57 12:27 14:40 Temp 98.0 98.0 Pulse 88 Resp 18 18 20 20 B/P (MAP) 123/71 (88) Pulse Ox 99 99 95 O2 Delivery Room Air Room Air Room Air Room Air 01/04/17 01/04/17 01/04/17 01/04/17 15:00 19:53 20:00 20:16 Temp 95.7 98.3 95.7 98.3 Pulse 89 90 Resp 18 18 20 B/P (MAP) 125/77 (93) 130/88 (102) Pulse Ox 100 95 95 O2 Delivery Room Air Room Air Room Air Room Air O2 Flow Rate 10.0 10.0 01/04/17 01/04/17 01/05/17 01/05/17 21:31 23:49 01:30 03:10 Temp 98.2 98.2 Pulse 80 Resp 20 18 18 B/P (MAP) 136/84 (101) Pulse Ox 97 97 97 O2 Delivery Room Air Room Air Room Air O2 Flow Rate 10.0 10.0 01/05/17 01/05/17 01/05/17 01/05/17 03:44 03:56 05:42 07:50 Temp 98.1 97.7 98.1 97.7 Pulse 88 78 Resp 17 B/P (MAP) 143/83 (103) 152/87 (108) Pulse Ox 97 97 97 99 O2 Delivery Room Air Room Air Room Air Room Air O2 Flow Rate 10.0 10.0 01/05/17 01/05/17 08:20 08:44 Resp 18 Pulse Ox 100 99 O2 Delivery Room Air Room Air Intake and Output 01/04/17 01/04/17 01/05/17 15:00 23:00 07:00 Intake Total 875 ml 0 ml Balance 875 ml 0 ml Assessment GB dyskinesia, s/p salud. Plan of Care Note No objections to discharge. F/u with us prn. AMI FRITZ MD January 05, 2017 10:16
[2017-01-05 10:42] VITALS: BP 117/68
[2017-01-05] MEDS ORDERED: LORA-434 PO (10:43)
[2017-01-05] MEDS ORDERED: OXYC-323 PO (10:49)
[2017-01-05] MEDS: SUMAtriptan SUCCINATE 25 MG TABLET PO PRN (11:11)
--- NOTE | 2017-01-06 14:44 | PATHOLOGY ---
PATHOLOGY REPORT * * * * * * * * FINAL DIAGNOSIS: Gallbladder, laparoscopic cholecystectomy: - Chronic and focal mild acute cholecystitis with increased eosinophils. COMMENT: There are no calculi identified within the gallbladder lumen or specimen container. There is no evidence of malignancy. (JPM:; d/t: 01/06/17) REPORT ELECTRONICALLY SIGNED BY: Linus Mac M.D. DATE/TIME: 01/06/2017 14:41 * * * * * * * * GROSS PATHOLOGY: Received in formalin labeled "Kayli Bolton, gallbladder with contents," is a 9.4 x 3.9 x 2.1 cm, previously punctured gallbladder with pink-carrero serosal surfaces. Opening the gallbladder reveals a velvety, bile-stained mucosa and an average wall thickness of 0.1 cm. Calculi are not present and no masses are noted grossly. Platform Power Technician sections from the body and fundus are submitted along with the proximal margin in cassette A1. (CAA; 01/05/2017) INITIAL CPT CODE(S): A; 62769 Professional services performed by [facility] [place] [address] Technical services performed by [facility] at [address] [place] [address], [address] [address]. SPECIMEN(S) RECEIVED: A.Gallbladder and contents CLINICAL HISTORY: Right upper quadrant pain PATIENT: KAYLI BOLTON /AGE: 9 1965 (Age: 51) PATIENT #: [id number] ALT CASE #: SPECIMEN COLLECTION DATE: 01/03/2017 SPECIMEN RECEIVED DATE: 01/04/2017 [facility] - [address] [place] [address] - PHONE: [phone] * * * END OF REPORT * * *
--- NOTE | 2017-01-15 22:58 | DS ---
DATE OF DISCHARGE: 01/05/2017 ADMISSION DIAGNOSIS: Right abdominal pain. DISCHARGE DIAGNOSIS: Postop laparoscopic cholecystectomy. HOSPITAL COURSE: The patient is a pleasant 51-year-old female presented with right abdominal pain. She was admitted. She had gallstones. We consulted general surgery. She was taken for laparoscopic cholecystectomy. Post-procedure, she did well. be discharged home. DISPOSITION: Home. ACTIVITY: As tolerated. DIET: Low sodium. MEDICATIONS: Please see the MRAD. TOTAL TIME ON DISCHARGE: 36 minutes. MICHI BUSTAMANTE DO DR: HEIDI/rebecca JOB#: [id number] / [id number]
== END 2017-01-05 11:25 | disposition home or self-care (01) ==
LOC: ER 12:28 → 5 NORTH 14:56
PROVIDERS: ADMIT Internal Medicine; ATTEND Internal Medicine
DX: K82.8 Other specified diseases of gallbladder (principal); E78.00 Pure hypercholesterolemia, unspecified; D64.9 Anemia, unspecified; E66.3 Overweight; E78.5 Hyperlipidemia, unspecified; F17.210 Nicotine dependence, cigarettes, uncomplicated; R11.0 Nausea; K25.9 Gastric ulcer, unspecified as acute or chronic, without hemorrhage or perforation; R68.83 Chills (without fever); D72.829 Elevated white blood cell count, unspecified; G43.909 Migraine, unspecified, not intractable, without status migrainosus; Z68.29 Body mass index [BMI] 29.0-29.9, adult; E11.40 Type 2 diabetes mellitus with diabetic neuropathy, unspecified
CPT/HCPCS: 36415; 47563; 74177; 74300; 76705; 76856; 78226; 80048; 80053; 80076; 81001; 81025; 82553; 82947; 83690; 84484; 85007; 85027; 85610; 85730; 88304; 93005; 94250; 94640; 94760; 96372; 96374; 96375; 96376; 97116; 97162; 97165; A9537; C1782; C9113; G0378; G0379; G0481; G8978; G8979; G8980; G8987; G8988; G8989; J0330; J0690; J0780; J1100; J1815; J1885; J2060; J2250; J2270; J2405; J2704; J2710; J2805; J3010; J3490; J7030; Q9966; Q9967; 82962

== ENCOUNTER → 2017-05-11 | Outpatient (CLI) | payer OTHER ==
[~2017-05-11] MED LIST: ATOR20TA58 PO; CYAN100031 PO; ESOM40CA PO; GABA-586 PO; GLIP2.5T4 PO; LORA-434 PO; METF-620 PO; OXYC-323 PO; PROAIR HFA8.5 GM INH; SITA100T PO
--- NOTE | 2017-05-11 12:09 | KCIC ---
MR of the left shoulder Indication: Left shoulder pain after a fall 3 weeks ago. Technique: Standard multiplanar sequences are obtained. Findings: Mild motion degradation. Acromioclavicular joint: Mildly degenerative. Small subacromial spur. Mild undersurface mass effect. Rotator cuff: Linear full thickness nonretracted rotator cuff tear at the anterior supraspinatus tendon measures 1 cm AP diameter. Mild generalized rotator cuff tendinosis. Trace fluid in the subdeltoid bursa. Glenohumeral cartilage: No acute defect or advanced DJD. Fluid: Trace glenohumeral joint fluid. Labrum: Mild distortion and signal of the superior labrum compatible with degeneration. No clear-cut detachment. Biceps tendon: Intact Bones: No lesion or acute fracture. Soft tissue: No acute findings. Impression: 1. Small linear nonretracted full-thickness rotator cuff tear of the anterior supraspinatus tendon attachment. 2. Superior labral degeneration. Electronically signed by: Neeraj Palafox MD (05/11/2017 12:06 PM) [facility]
== END | disposition home or self-care (01) ==
LOC: KCIC MRI 09:02
PROVIDERS: ATTEND Orthopaedic Surgery
DX: M75.102 Unspecified rotator cuff tear or rupture of left shoulder, not specified as traumatic (principal); W19.XXXD Unspecified fall, subsequent encounter
CPT/HCPCS: 73221

== ENCOUNTER → 2018-03-21 | Outpatient (CLI) | payer OTHER ==
[2018-03-21 16:30] LABS: ADD MAN DIFF? NO
[2018-03-21 16:36] LABS: BASO # 0.2 x10^3/uL (0.0-0.2); BASO % 2 % (0-3); EOS # 0.6 x10^3/uL (0.0-0.7); EOS % 6 % (0-3); HEMOGLOBIN 12.4 g/dL (12.0-15.5); LYMPH # 2.1 x10^3/uL (1.0-4.8); LYMPH % 23 % (24-48); MEAN CORPUSCULAR HEMOGLOBIN 31 pg (25-35); MEAN CORPUSCULAR HGB CONC 34 g/dL (31-37); MEAN CORPUSCULAR VOLUME 90 fL (79-100); MONO # 0.5 x10^3/uL (0.0-1.1); MONO % 5 % (0-9); NEUT # 5.9 x10^3uL (1.8-7.7); NEUT % 64 % (31-73); PLATELET COUNT 260 x10^3/uL (140-400); RED CELL DISTRIBUTION WIDTH 13.8 % (11.5-14.5); WHITE BLOOD COUNT 9.2 x10^3/uL (4.0-11.0)
[2018-03-21 16:54] LABS: ALBUMIN 3.7 g/dL (3.4-5.0); ALBUMIN/GLOBULIN RATIO 0.9 (1.0-1.7); ALK PHOS 142 U/L (46-116); ALT (SGPT) 88 U/L (14-59); ANION GAP 8 (6-14); AST (SGOT) 70 U/L (15-37); BLOOD UREA NITROGEN 14 mg/dL (7-20); BUN/CREATININE RATIO 16 (6-20); CALCIUM 9.3 mg/dL (8.5-10.1); CARBON DIOXIDE 27 mmol/L (21-32); CHLORIDE 103 mmol/L (98-107); CREATININE 0.9 mg/dL (0.6-1.0); GFR 79.9; GLUCOSE 160 mg/dL (70-99); POTASSIUM 3.7 mmol/L (3.5-5.1); SODIUM 138 mmol/L (136-145); TOTAL BILIRUBIN 0.3 mg/dL (0.2-1.0); TOTAL PROTEIN 7.6 g/dL (6.4-8.2)
[2018-03-21 16:55] LABS: AMPHETAMINE/METHAMPHETAMINE NEG (NEG); BARBITURATES NEG (NEG); BENZODIAZEPINES NEG (NEG); CANNABINOIDS NEG (NEG); COCAINE NEG (NEG); ETHANOL, URINE NEG (NEG); METHADONE NEG (NEG); OPIATES POS (NEG); PHENCYCLIDINE NEG (NEG)
[2018-03-21 17:41] LABS: SEDIMENTATION RATE 44 (0-25)
== END | disposition home or self-care (01) ==
LOC: LAB 16:17
DX: R51 Headache (principal); E11.9 Type 2 diabetes mellitus without complications; E78.5 Hyperlipidemia, unspecified; Z87.891 Personal history of nicotine dependence; Z79.899 Other long term (current) drug therapy
CPT/HCPCS: 36415; 80053; 80307; 85025; 85651

== ENCOUNTER → 2018-04-20 | Outpatient (CLI) | payer OTHER ==
[~2018-04-20] MED LIST changes: +GADOBUTROL 10 MMOL/10 ML VIAL IV ONE; -METF-620 PO; +METF10007 PO; +METO25TA4 PO; +NORT10CA PO; +RIZA10TA PO; +TOPI25TA52 PO
--- NOTE | 2018-04-20 17:15 | KCIC ---
MRI of the Brain without and with Contrast 04/20/2018 Clinical History: Headaches for 5 months, blurred vision. Syncopal episodes. Technique: Unenhanced T1-weighted sagittal and axial and FLAIR, T2-weighted, gradient echo and diffusion-weighted axial images of the brain were obtained. After the intravenous administration of 7 cc of Gadavist, enhanced T1-weighted axial and coronal images of the brain were obtained. Findings: No previous studies are available for comparison. Some of the images are degraded by patient motion. The ventricles and sulci are within normal limits in size and configuration. Patchy and a few small scattered areas of increased signal intensity are seen within the periventricular and subcortical white matter of both cerebral hemispheres along with the artem on the FLAIR and T2-weighted images. These are felt to most likely represent areas of very mild small vessel ischemic disease. No acute parenchymal abnormality is seen. No abnormal area of contrast enhancement is seen. No extra-axial fluid collection is noted. There is no MRI evidence of acute ischemia/infarction. The orbits are within normal limits. Mild to moderate mucosal thickening is seen scattered throughout the paranasal sinuses. There are small to moderate-sized bilateral mastoid effusions. Normal flow voids are seen within the major vascular structures surrounding the brain parenchyma. Impression: No acute parenchymal abnormality is seen. Electronically signed by: Hao Conde MD (04/20/2018 5:11 PM) [email or web address]
== END | disposition home or self-care (01) ==
LOC: KCIC MRI 15:29
PROVIDERS: ATTEND Psychiatry & Neurology Neurology
DX: H53.8 Other visual disturbances (principal); G43.909 Migraine, unspecified, not intractable, without status migrainosus; E11.9 Type 2 diabetes mellitus without complications; E78.00 Pure hypercholesterolemia, unspecified; Z87.891 Personal history of nicotine dependence; Z68.29 Body mass index [BMI] 29.0-29.9, adult; Z86.2 Personal history of diseases of the blood and blood-forming organs and certain disorders involving the immune mechanism
CPT/HCPCS: 70553; A9585

== ENCOUNTER → 2018-05-11 | Outpatient (CLI) | payer OTHER ==
[~2018-05-11] MED LIST changes: -GADOBUTROL 10 MMOL/10 ML VIAL IV ONE
--- NOTE | 2018-05-11 16:58 | RAD ---
Clinical Indications: Hypertension, smoking, memory loss, headaches. Exam : Carotid Duplex with Grayscale Ultrasound and Spectral and Color Doppler Analysis: PQRS Compliance Statement - Stenosis calculations for CT, MR and conventional angiography are based upon measurement of the distal ICA diameter in accordance with the NASCET methodology. Stenosis calculations for carotid ultrasound studies are derived from validated velocity criteria which are known to correlate with the NASCET methodology. Comparison study: None available. Findings: The common, internal and external carotid arteries were examined by grayscale, color and spectral Doppler ultrasound. There is moderate atherosclerotic calcifications identified in the bilateral common carotid arteries and the internal carotid arteries. Flow in both vertebral arteries was antegrade and normal. The following are the velocities and ratios in the carotid arteries on both sides: RIGHT ICA PV: 104cm/sec RIGHT CCA PV: 133cm/sec RIGHT ICA ED: 35cm/sec RIGHT IC/CCPV: 0.78 RIGHT VERTEBRAL: antegrade flow RIGHT % STENOSIS: Less than 50% LEFT ICA PV: 137cm/sec LEFT CCA PV: 129cm/sec LEFT ICA ED: 41cm/sec LEFT IC/CCPV: 1.06 LEFT VERTEBRAL: antegrade flow LEFT % STENOSIS: 50-69% The left internal carotid artery is tortuous. There is increased velocity identified in the left external carotid artery measuring 199 cm/s. . <50% ICA Stenosis: PSV < 125cm/s (EDV < 40cm/s; SVR < 2.0) 50-69% ICA Stenosis: PSV < 125-229cm/s (EDV 40-99cm/s; SVR 2.0-3.9) >70% ICA Stenosis: PSV > 230cm/s (EDV >100cm/s; SVR >4.0) Impression: 1. 50-60% stenosis identified in the left internal carotid artery. There is moderate atherosclerotic calcifications identified in the bilateral common carotid arteries and the bilateral internal carotid arteries. Electronically signed by: Ky Barros MD (05/11/2018 4:54 PM) [id number]
== END | disposition home or self-care (01) ==
LOC: US 14:03
PROVIDERS: ATTEND Surgery
DX: G44.009 Cluster headache syndrome, unspecified, not intractable (principal); H53.489 Generalized contraction of visual field, unspecified eye; I65.23 Occlusion and stenosis of bilateral carotid arteries; I10 Essential (primary) hypertension; R41.3 Other amnesia; F17.200 Nicotine dependence, unspecified, uncomplicated
CPT/HCPCS: 93880

== ENCOUNTER → 2018-06-27 | Outpatient (CLI) | payer OTHER ==
[2018-06-27 15:54] LABS: PROTHROMBIN TIME PATIENT 12.4 SEC (11.7-14.0)
== END | disposition home or self-care (01) ==
LOC: LAB 15:01
PROVIDERS: ATTEND Psychiatry & Neurology Neurology
DX: G43.011 Migraine without aura, intractable, with status migrainosus (principal); M31.6 Other giant cell arteritis
CPT/HCPCS: 36415; 85610; 85651

== ENCOUNTER → 2018-07-27 | Outpatient (CLI) | payer OTHER ==
[~2018-07-27] MED LIST changes: -GABA-586 PO; +GABA300C18 PO; -OXYC-323 PO; +OXYC1TAB15 PO
== END | disposition home or self-care (01) ==
LOC: LAB 15:20
PROVIDERS: ATTEND Psychiatry & Neurology Neurology
DX: G43.011 Migraine without aura, intractable, with status migrainosus (principal)
CPT/HCPCS: 36415; 85651

== ENCOUNTER → 2019-03-23 | Outpatient (CLI) | payer BC ==
[~2019-03-23] MED LIST changes: +ALBU2.5V8 INH; -PROAIR HFA8.5 GM INH
[2019-03-23 13:26] LABS: BASO # 0.1 x10^3/uL (0.0-0.2); BASO % 2 % (0-3); EOS # 0.8 x10^3/uL (0.0-0.7); EOS % 8 % (0-3); HEMATOCRIT 31.9 % (36.0-47.0); HEMOGLOBIN 10.8 g/dL (12.0-15.5); LYMPH # 2.2 x10^3/uL (1.0-4.8); LYMPH % 22 % (24-48); MEAN CORPUSCULAR HEMOGLOBIN 31 pg (25-35); MEAN CORPUSCULAR HGB CONC 34 g/dL (31-37); MEAN CORPUSCULAR VOLUME 92 fL (79-100); MONO # 0.4 x10^3/uL (0.0-1.1); MONO % 4 % (0-9); NEUT # 6.3 x10^3/uL (1.8-7.7); NEUT % 64 % (31-73); PLATELET COUNT 264 x10^3/uL (140-400); RED BLOOD COUNT 3.47 x10^6/uL (3.50-5.40); RED CELL DISTRIBUTION WIDTH 13.9 % (11.5-14.5); WHITE BLOOD COUNT 9.9 x10^3/uL (4.0-11.0)
[2019-03-23 13:39] LABS: ALBUMIN 3.8 g/dL (3.4-5.0); ALBUMIN/GLOBULIN RATIO 1.1 (1.0-1.7); AMPHETAMINE/METHAMPHETAMINE NEG (NEG); BARBITURATES NEG (NEG); BENZODIAZEPINES NEG (NEG); CALCIUM 9.3 mg/dL (8.5-10.1); CANNABINOIDS NEG (NEG); COCAINE NEG (NEG); CREATININE 1.4 mg/dL (0.6-1.0); GFR 47.8; METHADONE NEG (NEG); OPIATES NEG (NEG); PHENCYCLIDINE NEG (NEG); POTASSIUM 4.4 mmol/L (3.5-5.1); TOTAL BILIRUBIN 0.2 mg/dL (0.2-1.0); TOTAL PROTEIN 7.2 g/dL (6.4-8.2)
--- NOTE | 2019-03-23 14:14 | RAD ---
DOPPLER CAROTID BILAT Clinical Indication: Syncope. Carotid artery disease.. Procedure: Pulsed wave and color-flow duplex imaging was utilized to evaluate the extracranial carotid arteries. Comparison: None. Findings: RIGHT SIDE: Mild atherosclerotic plaque on carrero-scale images. Distal CCA peak systolic velocity 104 cm/sec. ICA peak systolic velocity 107 cm/sec. The right ICA/CCA ratio is 1.0. Flow within the right vertebral artery and right ECA is directed antegrade. LEFT SIDE: Mild atherosclerotic plaque on carrero-scale images. Distal CCA peak systolic velocity 104 cm/sec. ICA peak systolic velocity 62 cm/sec. The left ICA/CCA ratio is 0.6. Flow within the left vertebral artery and left ECA is directed antegrade. Carotid legend: CCA = common carotid artery ICA = internal carotid artery ECA = external carotid artery IMPRESSION: Less than 50 percent stenosis bilaterally. Electronically signed by: Cody Barreto DO (03/23/2019 2:12 PM) [facility]
== END | disposition home or self-care (01) ==
LOC: US 12:50
PROVIDERS: ATTEND Psychiatry & Neurology Neurology
DX: I65.23 Occlusion and stenosis of bilateral carotid arteries (principal); G43.011 Migraine without aura, intractable, with status migrainosus
CPT/HCPCS: 36415; 80053; 80307; 85025; 85651; 93880